=== PATIENT | female | born 1945 ===

== ENCOUNTER 2017-05-15 21:53 | Inpatient (IN) | payer MEDICARE, OTHER ==
[2017-05-15 22:00] VITALS: BMI 40.0
--- NOTE | 2017-05-15 22:19 | ED PDOC ---
Arrival/HPI - General Chief Complaint: Abdominal Pain Time Seen by Provider: 05/15/17 22:05 Historian: Patient - History of Present Illness Narrative History of Present Illness (Text): 05/15/17 22:19 Bettina Hill is a 72 year old female, whose past medical history includes diabetes, hyperlipidemia, CABG, pacemaker, gastric bypass, and pancreatitis, who presents to the Emergency department accompanied by family complaining of upper abdominal pain today. Patient reports associated nausea, 5 episodes of vomiting, and headache. Patient denies any fever, chills, chest pain, shortness of breath, urinary symptoms, back pain, neck pain, dizziness, or any other complaints. Time/Duration: Other (today) Symptom Onset: Gradual Symptom Course: Unchanged Activities at Onset: Rest, Light Context: Home Past Medical History - Provider Review Nursing Documentation Reviewed: Yes - Infectious Disease Hx of Infectious Diseases: None - Tetanus Immunization Tetanus Immunization: Unknown - Reproductive Menopause: Yes - Cardiac Hx Hypertension: (pt denies) Hx Pacemaker: Yes Other/Comment: CABG 9 yrs ago [facility] [place] - Pulmonary Hx Respiratory Disorders: No - Neurological Hx Neurological Disorder: No - HEENT Hx HEENT Disorder: No - Renal Hx Renal Disorder: No - Endocrine/Metabolic Hx Diabetes Mellitus Type 2: Yes Hx Hypothyroidism: Yes - Hematological/Oncological Hx Sickle Cell Disease: Yes - Integumentary Hx Dermatological Disorder: No - Musculoskeletal/Rheumatological Hx Arthritis: Yes (knees and hands) - Gastrointestinal Hx Colitis: Yes Hx Gastroesophageal Reflux: Yes - Genitourinary/Gynecological Hx Genitourinary Disorders: No - Psychiatric Hx Emotional Abuse: No Hx Physical Abuse: No Hx Substance Use: No - Surgical History Hx Coronary Artery Bypass Graft: Yes Hx Gastric Bypass Surgery: Yes (07/2013) - Anesthesia Hx Anesthesia: Yes Hx Anesthesia Reactions: No Hx Malignant Hyperthermia: No - Suicidal Assessment Feels Threatened In Home Enviroment: No Family/Social History - Physician Review Nursing Documentation Reviewed: Yes Family/Social History: Unknown Family HX Smoking Status: Never Smoked Hx Alcohol Use: No Hx Substance Use: No Hx Substance Use Treatment: No Allergies/Home Meds Allergies/Adverse Reactions: Allergies tramadol Adverse Reaction (Verified 05/15/17 22:00) HEADACHE Home Medications: Home Meds Medication Instructions Recorded Confirmed Insulin Glargine,Hum.rec.anlog 22 unit [facility] 07/19/12 05/15/17 [Lantus] Aspirin [Aspir 81] 81 mg PO DAILY 03/09/13 05/15/17 Atorvastatin [Lipitor] 40 mg PO DAILY 07/29/15 05/15/17 Enalapril Maleate [Vasotec] 10 mg PO DAILY 05/15/17 05/15/17 Insulin Aspart, Recombinant 15 units SC TID 05/15/17 05/15/17 [Novolog] Levothyroxine Sodium 137 mcg PO DAILY 05/15/17 05/15/17 [Levothyroxine Sodium] Omeprazole [Omeprazole] 40 mg PO DAILY 05/15/17 05/15/17 Review of Systems - Physician Review All systems were reviewed & negative as marked: Yes - Review of Systems Constitutional: Normal. absent: Fevers Eyes: Normal ENT: Normal Respiratory: Normal. absent: SOB, Cough Cardiovascular: Normal. absent: Chest Pain Gastrointestinal: Abdominal Pain, Nausea, Vomiting. absent: Diarrhea Genitourinary Female: Normal. absent: Dysuria, Frequency, Hematuria, Urine Output Changes Musculoskeletal: Normal. absent: Back Pain, Neck Pain Skin: Normal. absent: Rash Neurological: Headache. absent: Dizziness Endocrine: Normal Hemo/Lymphatic: Normal Psychiatric: Normal Physical Exam Vital Signs Reviewed: Yes Vital Signs Temp Pulse Resp BP Pulse Ox 05/16/17 00:36 60 16 161/81 H 96 05/15/17 21:57 98.3 F 66 18 160/81 H 97 Temperature: Afebrile Blood Pressure: Normal Pulse: Regular Respiratory Rate: Normal Appearance: Positive for: Well-Appearing, Non-Toxic, Comfortable Pain Distress: None Mental Status: Positive for: Alert and Oriented X 3 - Systems Exam Head: Present: Atraumatic, Normocephalic Pupils: Present: PERRL Extroacular Muscles: Present: EOMI Conjunctiva: Present: Normal Mouth: Present: Moist Mucous Membranes Neck: Present: Normal Range of Motion Respiratory/Chest: Present: Clear to Auscultation, Good Air Exchange. No: Respiratory Distress, Accessory Muscle Use Cardiovascular: Present: Regular Rate and Rhythm, Normal S1, S2. No: Murmurs Abdomen: Present: Tenderness (Epigastric/LUQ tenderness), Normal Bowel Sounds. No: Distention, Peritoneal Signs Back: Present: Normal Inspection Upper Extremity: Present: Normal Inspection. No: Cyanosis, Edema Lower Extremity: Present: Normal Inspection. No: Edema Neurological: Present: GCS=15, CN II-XII Intact, Speech Normal Skin: Present: Warm, Dry, Normal Color. No: Rashes Psychiatric: Present: Alert, Oriented x 3, Normal Insight, Normal Concentration Medical Decision Making ED Course and Treatment: 05/15/17 22:19 Impression: 72 year old female complaining of upper abdominal pain, nausea, vomiting, and headache. Plan: -- EKG -- Chest X-ray -- Labs, lipase -- IV fluids -- Zofran -- Pepcid -- Reassess and disposition Prior Visits: Notes and results from previous visits were reviewed. On 07/22/2016, pt was seen in the Emergency department for palpitations and dizziness. Pt was d/c home. Progress Notes: Reviewed EKG, 100% paced rhythm at 63 bpm. LAD. Inferior infarct. 05/15/17 22:59 Reviewed radiology, Chest X-ray shows no acute processes. 05/16/17 02:[address] Abdomen and Pelvis, shows: Stable trace intrahepatic biliary duct dilation. Stable right renal cortical thinning and perinephric fluid/stranding. Air in urinary bladder.Recommend correlation with urinalysis to exclude infectious etiology. 05/16/17 03:[address] Mccartney, who is aware and agrees with plan. Accepts pt in to her service. Pt will go to [facility] observation for intractable abdominal pain. Request Dr. Hein on consult. - Lab Interpretations Lab Results: 05/15/17 22:20 05/15/17 22:20 Lab Results 05/15/17 22:20: WBC 5.5 D, RBC 3.97, Hgb 11.5 L, Hct 35.3 L, MCV 88.9, MCH 29.0 , MCHC 32.6, RDW 13.6, Plt Count 241, MPV 9.6 05/15/17 22:20: Sodium 137, Potassium 4.4, Chloride 100, Carbon Dioxide 27, Anion Gap 14, BUN 14, Creatinine 0.6, Est GFR ( Amer) > 60, Est GFR (Non- Af Amer) > 60, Random Glucose 166 H, Calcium 9.5, Total Bilirubin 0.4, AST 29, ALT 30, Alkaline Phosphatase 79, Total Protein 7.5, Albumin 4.1, Globulin 3.4, Albumin/Globulin Ratio 1.2, Lipase 85 I have reviewed the lab results: Yes - RAD Interpretation Narrative RAD Interpretations (Text): CT Abdomen and Pelvis shows: The gallbladder is distended without evidence of gallstones or wall thickening. There is trace intrahepatic biliary duct dilation similar to prior of uncertain etiology. The common bile duct measures 8 mm which is unchanged and within normal limits for the patient's age. The liver is normal. The spleen is normal. The pancreas is normal. Again seen are areas of cortical thinning in the right kidney with a small amount of adjacent stranding fluid. Without benefit of the prior, this would raise the possibility of pyelonephritis however the complete lack of bladder changer 1 year suggests chronicity. Correlation with urinalysis could be performed for confirmation. Evidence of gastric surgery. Colonic diverticulosis is present. A normal appendix is identified images 97 through 116. There is air in the urinary bladder. IMPRESSION: Stable trace intrahepatic biliary duct dilation. Stable right renal cortical thinning and perinephric fluid/stranding. Air in urinary bladder.Recommend correlation with urinalysis to exclude infectious etiology. Radiology Orders: 05/15/17 22:18 CHEST PORTABLE [RAD] Stat 05/15/17 23:43 ABD & PELVIS IV CONTRAST ONLY [CT] Stat Animal Services Officer: ED Physician, Radiologist - EKG Interpretation Interpreted by ED Physician: Yes Type: 12 lead EKG - Medication Orders Current Medication Orders: Sodium Chloride (Sodium Chloride 0.9%) 1,000 mls @ 100 mls/hr IV .Q10H KULWANT Last Admin: 05/15/17 22:37 Dose: 100 mls/hr Discontinued Medications Famotidine (Pepcid) 20 mg IVP STAT STA Stop: 05/15/17 22:20 Last Admin: 05/15/17 22:46 Dose: 20 mg Iohexol (Omnipaque 350 100 Ml) Confirm Administered Dose 350 mg .ROUTE .STK-MED ONE Stop: 05/16/17 01:05 Ketorolac Tromethamine (Toradol) 30 mg IVP ONCE ONE Stop: 05/15/17 22:20 Last Admin: 05/15/17 22:38 Dose: 30 mg Morphine Sulfate (Morphine) 2 mg IVP STAT STA Stop: 05/15/17 23:25 Last Admin: 05/15/17 23:30 Dose: 2 mg Morphine Sulfate (Morphine) 2 mg IVP STAT STA Stop: 05/16/17 01:00 Last Admin: 05/16/17 02:35 Dose: 2 mg Ondansetron HCl (Zofran Inj) 4 mg IVP ONCE ONE Stop: 05/15/17 22:20 Last Admin: 05/15/17 22:37 Dose: 4 mg - Scribe Statement The provider has reviewed the documentation as recorded by the Zuleyka Serna Provider Scribe Attestation: All medical record entries made by the Scribe were at my direction and personally dictated by me. I have reviewed the chart and agree that the record accurately reflects my personal performance of the history, physical exam, medical decision making, and the department course for this patient. I have also personally directed, reviewed, and agree with the discharge instructions and disposition. Disposition/Present on Arrival - Present on Arrival Any Indicators Present on Arrival: No History of DVT/PE: No History of Uncontrolled Diabetes: No Urinary Catheter: No History of Decub. Ulcer: No History Surgical Site Infection Following: None - Disposition Have Diagnosis and Disposition been Completed?: Yes Diagnosis: Intractable abdominal pain Disposition: HOSPITALIZED Disposition Time: 03:22 Patient Plan: Observation Condition: STABLE Referrals: Annie Hankins DO [Primary Care Provider] - Follow up with primary
[2017-05-15 22:36] LABS: HEMOGLOBIN 11.5 gm/dL (12.0-16.0); MEAN CELL VOLUME 88.9 fL (80.0-105.0); MEAN CORPUSCULAR HGB CONC 32.6 g/dl (31.0-37.0); MEAN PLATELET VOLUME 9.6 fl (7.0-11.0); RBC 3.97 10^6/uL (3.5-6.1); RED CELL DISTRIBUTION WIDTH 13.6 % (11.5-14.5); WHITE BLOOD COUNT 5.5 10^3/ul (4.5-11.0)
[2017-05-15] MEDS: Sodium Chloride 0.9% 1,000 ML IV SCH (22:37)
[2017-05-15 23:23] LABS: ALB/GLOB RATIO 1.2 (1.1-1.8); ALBUMIN 4.1 g/dL (3.0-4.8); ALT/SGPT 30 U/L (7-56); AST/SGOT 29 U/L (15-39); BLOOD UREA NITROGEN 14 mg/dL (7-21); CALCIUM 9.5 mg/dL (8.4-10.5); GFR AFRICAN-AMERICAN > 60; GFR NON-AFRICAN AMERICAN > 60; LIPASE 85 U/L (23-300)
[2017-05-15] MEDS ORDERED: Morphine 2 mg/ml ISec IVP STA (23:24)
[2017-05-16] MEDS ORDERED: Morphine 2 mg/ml ISec IVP STA (00:59)
[2017-05-16] MEDS ORDERED: Iohexol 350 MG/100 ML VIAL ONE (01:04)
--- NOTE | 2017-05-16 02:52 | CT ---
EXAM: CT Abdomen and Pelvis With Intravenous Contrast CLINICAL HISTORY: 72 years old, female; Pain; Abdominal pain; Generalized TECHNIQUE: Axial computed tomography images of the abdomen and pelvis with intravenous contrast. This CT exam was performed using one or more of the following dose reduction techniques: automated exposure control, adjustment of the mA and/or kV according to patient size, and/or use of iterative reconstruction technique. CONTRAST: 96 mL of OMNI 350 administered intravenously. EXAM DATE/TIME: 05/15/2017 11:43 PM COMPARISON: CT - PANCREATIC PROTOCOL 06/01/2016 9:04:29 AM FINDINGS: The gallbladder is distended without evidence of gallstones or wall thickening. There is trace intrahepatic biliary duct dilation similar to prior of uncertain etiology. The common bile duct measures 8 mm which is unchanged and within normal limits for the patient's age. The liver is normal. The spleen is normal. The pancreas is normal. Again seen are areas of cortical thinning in the right kidney with a small amount of adjacent stranding fluid. Without benefit of the prior, this would raise the possibility of pyelonephritis however the complete lack of change lead 1 year suggests chronicity. Correlation with urinalysis could be performed for confirmation. Evidence of gastric surgery. Colonic diverticulosis is present. A normal appendix is identified images 97 through 116. There is air in the urinary bladder. IMPRESSION: Stable trace intrahepatic biliary duct dilation. Stable right renal cortical thinning and perinephric fluid/stranding. Air in urinary bladder.Recommend correlation with urinalysis to exclude infectious etiology.
[2017-05-16 03:33] LABS: URINE BILIRUBIN NEGATIVE (NEGATIVE); URINE BLOOD TRACE-INTACT (NEGATIVE); URINE GLUCOSE (UA) NEGATIVE (NEGATIVE); URINE LEUKOCYTE ESTERASE NEGATIVE Leu/uL (NEGATIVE); URINE NITRATE NEGATIVE (NEGATIVE); URINE PROTEIN TRACE mg/dL (<30 mg/dL); URINE UROBILINOGEN 0.2 E.U./dL (<1 E.U./dL)
[2017-05-16 03:41] LABS: URINE APPEARANCE SL CLOUDY (CLEAR); URINE COLOR YELLOW (YELLOW)
[2017-05-16 04:38] LABS: URINE BACTERIA MANY (NEG); URINE EPITHELIAL CELLS 0 - 2 /hpf (0-5); URINE RBC 0 - 2 /hpf (0-2); URINE WBC 0 - 2 /hpf (0-6)
--- NOTE | 2017-05-16 08:02 | RAD ---
HISTORY: abdominal pain COMPARISON: 07/22/2016. FINDINGS: LUNGS: The lungs are clear. PLEURA: No significant pleural effusion identified, no pneumothorax apparent. CARDIOVASCULAR: There is mild cardiomegaly. Status post CABG. There is stable position of a left-sided dual lead transvenous permanent pacing device. OSSEOUS STRUCTURES: No significant abnormalities. VISUALIZED UPPER ABDOMEN: Normal. OTHER FINDINGS: None. IMPRESSION: No active pulmonary disease.
[2017-05-16] MEDS: Insulin Reg-MEDIUM-Coverage SC SCH ×3 (11:00→22:18)
--- NOTE | 2017-05-16 11:17 | US ---
HISTORY: Nausea and vomiting COMPARISON: CT abdomen and pelvis performed the same day TECHNIQUE: Grayscale imaging was performed. FINDINGS: LIVER: Measures 18.3 cm. Normal echogenicity of the liver parenchyma. No mass. No intrahepatic bile duct dilatation. GALLBLADDER: There are no gallstones, wall thickening or pericholecystic fluid. COMMON BILE DUCT: Measures 8.0 mm. No stones. No dilatation. PANCREAS: Unremarkable as visualized. No mass. No ductal dilatation. RIGHT KIDNEY: Measures 10.5cm. Normal echogenicity. No calculus, mass, or hydronephrosis. LEFT KIDNEY: Measures 10.8cm. Normal echogenicity. No calculus, mass, or hydronephrosis. SPLEEN: Normal in size and contour. No mass. AORTA: No aneurysmal dilatation. IVC: Unremarkable. OTHER FINDINGS: None. IMPRESSION: Mild hepatomegaly. Diffuse increased echogenicity in the liver may reflect hepatic steatosis however parenchymal infectious/ inflammatory etiologies cannot be entirely excluded. Clinical and laboratory correlation is advised. No evidence of cholelithiasis or biliary dilatation.
[2017-05-16] MEDS ORDERED: HYDROmorphone 2 mg/ml ISec IVP PRN (12:38)
[2017-05-16] MEDS: Sodium Chloride 0.9% 1,000 ML IV SCH (13:12)
[2017-05-16] MEDS ORDERED: DiphenhydrAMINE 50 mg/ml Inj IVP PRN (14:43)
[2017-05-16] MEDS ORDERED: Morphine 4 mg/ml ISec IVP PRN (14:45)
--- NOTE | 2017-05-16 17:17 | CARD ---
APPROVED REPORT EKG Measurement Heart [id number] <Conclusion> Electronic atrial pacemaker Left axis deviation Nonspecific intraventricular block Inferior infarct, age undetermined Abnormal ECG
--- NOTE | 2017-05-17 03:33 | CON ---
GASTROINTESTINAL CONSULTATION REASON FOR CONSULTATION: Seen and examined at the bedside earlier today, the chart was reviewed, and request for consult is for abdominal pain. HISTORY OF PRESENT ILLNESS: This is a 72-year-old female with a past medical history of hyperlipidemia, CABG pacemaker, gastric bypass, and diabetes now status post pancreatitis, came to the emergency room complaining of upper abdominal pain. She did complain of numerous episodes of vomiting. No hematemesis as well as nausea and headache. No complaints of any shortness of breath, chest pain, fever, chills, or dysuria. On admission, she had a CT scan of the abdomen and pelvis, which showed a stable *------* of intrahepatic biliary duct dilatation at 8 mm, which is unchanged. No gallstones noted as well as CT scan with air in urinary bladder and stable right renal cortical thinning and perinephric fluid stranding. The patient did state she had an endoscopy about 2 weeks ago at [facility]. PAST MEDICAL HISTORY: Pacemaker, diabetes mellitus type 2, hypothyroidism, CABG, arthritis, GERD, colitis, pancreatitis, and history of hyperlipidemia. PAST SURGICAL HISTORY: Pacemaker, coronary artery bypass graft, gastric bypass, last endoscopy was in 12/2014 and found to have healed gastric ulcer. She did have an EUS back in 04/2013 and that showed normal CBD at 12.9 mm and normal PD at 1.8 mm. ALLERGIES: TRAMADOL. MEDICATIONS: Reviewed as per MAR. She is on levothyroxine, omeprazole, Vasotec, insulin, Lipitor, aspirin, and Lantus. SOCIAL HISTORY: No history of smoking, alcohol, or substance abuse. REVIEW OF SYSTEMS: Systems reviewed with positive findings, see HPI. PHYSICAL EXAMINATION: VITAL SIGNS: Temperature is 98.5, blood pressure is 124/66, pulse is 60, respirations are 18, and 96% on room air. HEENT: Sclerae anicteric. NECK: Supple. CARDIAC: S1 and S2. LUNGS: Sounds with decreased breath sound, but good air entry. No rales or wheeze. ABDOMEN: With bowel sounds soft, positive tenderness, no rebound or guarding. EXTREMITIES: No edema. NEUROLOGIC: Awake, alert, and oriented. LABORATORY DATA: WBC is 5.5, H and H is 11.5 and 35.3, and platelets are 241. Sodium 137, potassium 4.4, BUN 14, creatinine 0.6, total bilirubin 0.4, AST 29, ALT 30, alkaline phosphate is 79, and lipase is 85. Urine is negative for leukocyte esterase, protein trace, and blood trace intact. ASSESSMENT: This is a 72-year-old female with a past medical history of diabetes mellitus, gastric bypass, coronary artery bypass graft:, pacemaker, history of pancreatitis, and gastroesophageal reflux disease comes with upper abdominal pain as well as nausea and vomiting. We did send the patient for an ultrasound this morning and that was negative for any dilation or common bile duct stones, the common bile duct measured 8.0 mm. Gallbladder was negative for gallstones, wall thickening, or pericholecystic fluid, and history of gastric bypass. PLAN: We will request copy of her EGD from [facility] for review. Continue PPIs, on Protonix daily, on IV fluids, Zofran p.r.n., is on Dilaudid for pain and on aspirin. We will try to start patient on clear liquid diet and see how she does with this. Thank you for this consult and for allowing us to participate in your patient's care. We will make further recommendations based upon patient's clinical course. The patient was seen and case discussed with Dr. Hein. TEGAN Pugh
--- NOTE | 2017-05-17 03:42 | HP ---
DATE OF SERVICE: 05/16/2017 HISTORY OF PRESENT ILLNESS: The patient is 72-year-old, states she is having abdominal discomfort and nausea since yesterday. She did have multiple episodes of diarrhea. She feels nauseous. She complained of loss of appetite. She does admit to eating some barbeque yesterday afternoon. Since then, she started her symptoms. Denies any fever or chills. No hemoptysis. No hematemesis. No rectal bleeding. PAST MEDICAL HISTORY: Significant for: 1. Hypertension. 2. Coronary artery disease, status post open heart surgery. 3. History of gastric bypass. 4. Status post pacemaker placement. 5. Hyperlipidemia. 6. Insulin-dependent diabetes. 7. History of gastroesophageal reflux disease. ALLERGIES: SHE IS ALLERGIC TO TRAMADOL. FAMILY HISTORY: Not significant except diabetes and hypertension. SOCIAL HISTORY: She lives by herself. She used to smoke heavy, but quit a couple of years ago. MEDICATIONS AT HOME: She is on levothyroxine 137 mcg daily, omeprazole 40 mg daily, enalapril 10 mg daily, NovoLog 15 units before each meal, Lipitor 40 mg daily, aspirin 81 mg daily, and Lantus 22 units at bedtime. REVIEW OF SYSTEMS: Significant for decreased appetite, feeling nauseous and having abdominal discomfort. PHYSICAL EXAMINATION: GENERAL: Does not look in any distress. Does complain of left upper quadrant and lower quadrant discomfort. VITAL SIGNS: She is afebrile, pulse 60, respirations 18, blood pressure 124/66. LUNGS: Bilateral fair airflow. No rhonchi or crackle. HEART: S1 and S2 audible. ABDOMEN: Soft and nontender. Slight deep palpable discomfort in the left upper quadrant and lower quadrant area, but no rebound or guarding. EXTREMITIES: Bilateral leg, no edema. NEUROLOGIC: She is awake and alert, communicative. LABORATORY DATA: She has stable trace intrahepatic biliary ductal dilatation, stable right renal cortical thinning, air in the urinary bladder. Abdominal sonogram shows mild hepatomegaly, diffuse increased echogenicity in the liver reflecting fatty infiltration. No evidence of cholelithiasis or ductal dilatation. ASSESSMENT: 1. Gastroenteritis. 2. Dehydration. 3. Hypertension. 4. Coronary artery disease. 5. Hypothyroidism. 6. Insulin-dependent diabetes. PLAN: We will start the patient on aspirin 81 mg daily, Dilaudid as needed. Monitor her blood sugars. Give her Protonix IV daily. Start her on IV fluid. We will hold off her scheduled dose of insulin and we will reevaluate the patient in a.m. Follow up CBC, CMP in a.m. Frances Mccartney MD
--- NOTE | 2017-05-17 05:33 | CON ---
ADDENDUM DATE: 05/16/2017 Addendum to the consultation report dictated by EMILY Pugh. This patient was seen evaluated earlier. His previous workup reviewed. The patient is being followed by the auto parts handler. The patient had a CAT scan with a pancreatic protocol done last year was negative. Admitted with an abdominal pain. The patient had an endoscopy done only 2 weeks ago at [facility]. We reviewed the report from the medical center. We will request for ultrasound scan of the abdomen. We will continue to closely follow up her care and suggest further management based on the clinical course. We will start the patient on clear liquid diet. Thank you very much for allowing me to participate. Patrick Hein MD
[2017-05-17] MEDS ORDERED: Levothyroxine 112 MCG TAB ONE ×2 (05:41→05:42)
[2017-05-17] MEDS ORDERED: Levothyroxine 125 MCG TAB PO SCH (06:00)
[2017-05-17] MEDS: Insulin Reg-MEDIUM-Coverage SC SCH ×2 (08:52→17:12)
[2017-05-17] MEDS: Sodium Chloride 0.9% 1,000 ML IV SCH ×2 (09:10→17:13)
--- NOTE | 2017-05-18 03:05 | PN ---
DATE: SUBJECTIVE: Seen and examined at the bedside earlier today. The daughter was there. The patient does report improvement of abdominal pain. No nausea or vomiting. Her daughter brought in the copies of her endoscopy report done at [facility] on 04/19/2017. The report was reviewed. The patient's findings were reviewed. Post surgical anatomy consistent with gastric bypass. Normal GJ anastomosis. There was mild nodular mucosa in the gastric remnant. Biopsies were obtained and that reported minimal chronic gastritis. No intestinal metaplasia and was negative for H. pylori. No report of any diarrhea. She tolerated the clear liquid diet. PHYSICAL EXAMINATION: VITAL SIGNS: Temperature is 97.7, blood pressure 146/66, pulse 62, respirations 18, 96 on room air. HEENT: Sclerae is anicteric. NECK: Supple. CARDIOPULMONARY: S1 and S2. LUNGS: Lung sounds, decreased breath sounds at the bases, but good air entry. No rales or wheeze. ABDOMEN: Bowel sounds, soft. No tenderness on palpation, rebound or guarding. EXTREMITIES: Positive pedal pulses. No edema. NEUROLOGIC: Awake, alert, and oriented. LABORATORY DATA: Noted is for POC glucose at 280. The patient is on insulin coverage. ASSESSMENT: A 72-year-old female with a past medical history of gastric bypass, diabetes, history of pancreatitis, hyperlipidemia came with complaints of abdominal pain and nausea. She also has a history of gastroesophageal reflux disease, may be gastroenteritis. The patient recalls last eating a barbeque. Endoscopy report was reviewed, it was done on 03/2017, no ulcers were found, just chronic gastritis. Biopsies negative. She did go for an ultrasound which was negative for gallstones or common bile duct stones, showed intrahepatic biliary duct dilatation at 8 mm which is reported to be unchanged from previous study done. PLAN: She was on clear liquids, advance the diet as tolerated. Continue PPI. She is on Zofran p.r.n. Her last dose was yesterday afternoon. Continue IV fluids for hydration. We will continue to follow. The patient was seen and case discussed with Dr. Hein. TEGAN Pugh
[2017-05-18] MEDS ORDERED: Levothyroxine 112 MCG TAB ONE (05:17)
[2017-05-18] MEDS: Insulin Reg-MEDIUM-Coverage SC SCH ×5 (05:41→22:06)
--- NOTE | 2017-05-18 06:51 | DS ---
HISTORY OF PRESENT ILLNESS: The patient is a 72-year-old seen and examined. She states she felt well this morning, but her diet was advanced. After she ate, she started to have abdominal discomfort again, feels bloated now. PHYSICAL EXAMINATION: VITAL SIGNS: She is afebrile, pulse 62, respirations 18, and blood pressure 146/66. LUNGS: Bilateral fair airflow. No rhonchi or crackle. HEART: S1 and S2 audible. ABDOMEN: Soft and nontender. No rebound. No guarding. Slight discomfort in the left lower quadrant and epigastric area, but no definite tenderness. LABORATORY DATA: Blood sugar is 198. Urine cultures are negative. ASSESSMENT: 1. Gastroenteritis. 2. Abdominal bloating. 3. Non-insulin dependent diabetes. 4. Hypertension. PLAN: We will start the patient on full liquid diet and monitor for next 2-3 hours. If her abdominal discomfort and pain subsides, she will be discharge home later on today, and she was advised to stay on the soft diet for next 24-48 hours. Frances Mccartney MD
[2017-05-18 11:30] VITALS: RESP 20
[2017-05-18] MEDS ORDERED: Iohexol 240 (50 ml) ONE (19:02)
--- NOTE | 2017-05-18 20:12 | PN ---
DATE OF SERVICE: 05/18/2017 SUBJECTIVE: Seen and examined at the bedside earlier today. She had middle of the night abdominal pain. Only thing she recalls eating was her snack before bed. History of diabetes, she had a tuna fish and some juice. This morning, she feels okay. She was able to tolerate her breakfast with no nausea or complaints of abdominal pain. No reports of any diarrhea, shortness of breath, chest pain, or overt GI bleed. PHYSICAL EXAMINATION: VITAL SIGNS: Temperature 98.2, blood pressure 128/62, pulse 63, respirations 18, and 97% on room air. HEENT: Sclerae are anicteric. NECK: Supple. CARDIAC: S1 and S2. LUNGS: With decreased breath sounds at the bases, but good air entry. No rales or wheeze. ABDOMEN: With bowel sounds soft. There is no tenderness on palpation. No rebound or guarding. EXTREMITIES: No edema. NEUROLOGIC: Awake, alert, and oriented. LABORATORY DATA: Last blood workup noted at [facility], glucose was 202. ASSESSMENT: A 72-year-old female with a past medical history of diabetes mellitus, gastric bypass, history of pancreatitis, hyperlipidemia, and gastroesophageal reflux disease. The patient came with complaint of nausea, abdominal pain, recalls eating barbecue, may likely be an episode of gastroenteritis. She did have recent endoscopy done at [facility] in 03/2017, no acute findings, just showed chronic gastritis with negative biopsies; history of intrahepatic biliary ductal dilation. PLAN: Continue with the solids as tolerated. Continue PPI. If the patient continues to tolerate diet, no belly, abdominal pain, or nausea, may likely be discharged home today. I discussed with the patient. She has her own GI doctor who she goes to and said that she will follow up with him. The patient was seen and case discussed with Dr. Hein. TEGAN Pugh
--- NOTE | 2017-05-18 22:38 | CP.PCM.PN ---
Subjective - Date & Time of Evaluation Date of Evaluation: 05/18/17 Time of Evaluation: 17:00 Objective - Vital Signs/Intake and Output Vital Signs (last 24 hours): Temp Pulse Resp BP Pulse Ox 97.8 F 63 20 160/80 H 97 05/18/17 16:30 05/18/17 16:30 05/18/17 16:30 05/18/17 16:30 05/18/17 16:30 - Medications Medications: Current Medications Aspirin (Aspirin Chewable) 81 mg PO DAILY [facility] Last Admin: 05/18/17 10:32 Dose: 81 mg Diphenhydramine HCl (Benadryl) 25 mg IVP Q4H PRN PRN Reason: Allergy symptoms Last Admin: 05/16/17 14:56 Dose: 25 mg Insulin Human Regular (Humulin R Med) 0 units SC ACHS [facility] PRN Reason: Protocol Last Admin: 05/18/17 17:03 Dose: 3 units Levothyroxine Sodium 112 mcg/ (Levothyroxine Sodium 25 mcg) 137 mcg PO 0600 [facility] Last Admin: 05/18/17 05:38 Dose: 137 mcg Morphine Sulfate (Morphine) 4 mg IVP Q4H PRN PRN Reason: Pain, severe (8-10) Last Admin: 05/18/17 02:02 Dose: 4 mg Ondansetron HCl (Zofran Inj) 4 mg IVP Q6H PRN PRN Reason: Nausea/Vomiting Last Admin: 05/16/17 13:07 Dose: 4 mg Pantoprazole Sodium (Protonix Inj) 40 mg IVP DAILY [facility] Last Admin: 05/18/17 10:32 Dose: 40 mg Assessment and Plan - Assessment and Plan (Free Text) Assessment: This is an addendum to the GI progresreport dictated by Karina Araiza APN. Patient was seen and evaluated earlier patient had episodes of abdominal pain nausea yesterday after supper. Patient is now tolerating the diet appears to have abdominal pain more frequently after eating. Patient's the initial CT scan done was reviewed. The scan was done without the oral contrast and within IV contrast. This is a significant amount of food residue noticed in the stomach. The likely cause for her abdominal pain could be related to gastroparesis. Status post bariatric surgery. We'll recommend repeat the CT of abdomen and pelvis with only by mouth contrast to rule out any partial obstruction. Rule out gastric outlet obstruction Patient's other comorbidities include diabetes mellitus, status postgastric bypass, hypothyroidism, coronary artery disease, peptic ulcer disease Discussed with the Dr. Mccartney and also with the patient family members and nursing staff
[2017-05-19] MEDS ORDERED: Levothyroxine 112 MCG TAB ONE (06:15)
--- NOTE | 2017-05-19 07:53 | PN ---
SUBJECTIVE: The patient is 72 years old who was scheduled to be discharged yesterday, but after she had her lunch and dinner she started to have epigastric discomfort. Her scheduled discharge was canceled. She had severe epigastric discomfort around 2:00 this morning. She was given narcotics. When I saw patient, she was still complaining of abdominal discomfort. She was still complaining of abdominal discomfort, so we are going to discuss with Dr. Hein. Her CAT scan showed she has because of her gastroparesis. She recently had gastric bypass procedure. Because of when she eats she did start to have abdominal discomfort. She recently had endoscopy done in outside facility in [place] 2 weeks ago, so we will start her on pureed feeding, repeat the CT scan and reevaluate her response to this change. PHYSICAL EXAMINATION GENERAL: On examination today, she is weak and alert. She is communicative. VITAL SIGNS: She is afebrile, pulse 60, respirations 20, blood pressure 160/80. HEART: S1 and S2 audible. LUNGS: Bilateral fair airflow. No rhonchi or crackle. ABDOMEN: Soft. Epigastric discomfort. NEUROLOGIC: She is awake and alert, communicative. LABORATORY DATA: WBC is 5.5, hemoglobin 11 and hematocrit 35, blood sugar is 211. ASSESSMENT AND PLAN: 1. Abdominal pain probably secondary to gastroparesis. 2. Moderate obesity. 3. Status post gastric bypass. 4. Hypertension. 5. Non-insulin dependent diabetes. 6. Moderate obesity. PLAN: We will change her diet to the pureed diet and repeat CT of the abdomen and pelvis with p.o. contrast and we will reevaluate the patient in a.m. Frances Mccartney MD
--- NOTE | 2017-05-19 08:14 | CT ---
PROCEDURE: CT Abdomen and Pelvis with Oral contrast. HISTORY: EPIGASTRIC PAIN COMPARISON: Subsequent abdomen pelvis CT with IV contrast only 05/16/2017 01:10 a.m. as well as abdomen CT with contrast dated 06/01/2016. TECHNIQUE: Contiguous axial images of the abdomen and pelvis. Oral contrast was administered. No IV contrast given. Coronal and Sagittal reformats generated. Radiation dose: Total exam DLP = 1243 mGy-cm. This CT exam was performed using one or more of the following dose reduction techniques: Automated exposure control, adjustment of the mA and/or kV according to patient size, and/or use of iterative reconstruction technique. FINDINGS: LOWER THORAX: Unremarkable. 9 mm densely calcified granuloma seen the medial left lower lobe with fibrotic changes again seen the medial right lung base LIVER: Unenhanced liver appears unremarkable. No gross lesion or ductal dilatation. GALLBLADDER AND BILE DUCTS: A dilated CBD is identified 9 mm distally with the gallbladder appearing distended. No radiodense choledocholithiasis or cholelithiasis is identified this time. PANCREAS: Unenhanced pancreas appears unremarkable. No mass. No ductal dilatation. SPLEEN: Unenhanced spleen appears unremarkable. No splenomegaly. ADRENALS: Unenhanced appearing unremarkable. KIDNEYS AND URETERS: Unenhanced appearing nonfocal. Right perinephric streaky changes persist, of uncertain origin. Consider not nephritis however prior enhancement pattern was unremarkable. No stone or hydronephrosis. BLADDER: Trace gas again seen the nondependent urinary bladder. . REPRODUCTIVE: Unremarkable. APPENDIX: Remains unremarkable. BOWEL: Liquid fecal material is again seen in the colon with sigmoid diverticular changes stable and nonacute once again. Opacified small bowel loops appear grossly unremarkable. No obstruction. No gross mural thickening. PERITONEUM: Unremarkable. No fluid collection. No free air. LYMPH NODES: Unremarkable. No enlarged lymph nodes. VASCULATURE: Unremarkable. No aortic aneurysm. BONES: No fracture or destructive lesion. OTHER FINDINGS: None. IMPRESSION: No significant interval change in the appearance of the bowel with nonacute sigmoid diverticular change again identified. Opacified small bowel is unremarkable. Postop changes again seen the stomach. Note solid abdominal viscera are poorly evaluated due to lack of IV contrast. Trace right perinephric reaction again evident. Consider possible nephritis though obstructive uropathy is not evident. No prominent interval change seen compared to prior CT earlier on 05/16/2017. Distal common bile duct caliber remains dilated to 8 mm without radiodense choledocholithiasis, potentially normal caliber.
[2017-05-19] MEDS: Insulin Reg-MEDIUM-Coverage SC SCH ×3 (09:43→12:30)
--- NOTE | 2017-05-19 10:08 | CP.PCM.PN ---
<Karina Araiza - Last Filed: 05/19/17 11:02> Subjective - Date & Time of Evaluation Date of Evaluation: 05/19/17 Time of Evaluation: 08:50 - Subjective Subjective: S&E at bedside, chart reviewed. Had no pain last night but did have this morning. Epigastric. But better. She tolerated her breakfast, N/V. Had large BM after oral contrast for ct sca, which revealed liquid stool, sigmoid diverticular changes, , stable, non acute, dilated CBD, stable. Objective - Vital Signs/Intake and Output Vital Signs (last 24 hours): Temp Pulse Resp BP Pulse Ox 97.8 F 63 20 160/80 H 97 05/18/17 16:30 05/18/17 16:30 05/18/17 16:30 05/18/17 16:30 05/18/17 16:30 Intake and Output: 05/19/17 05/19/17 06:59 18:59 Intake Total 240 Balance 240 - Medications Medications: Current Medications Aspirin (Aspirin Chewable) 81 mg PO DAILY [facility] Last Admin: 05/19/17 09:44 Dose: 81 mg Diphenhydramine HCl (Benadryl) 25 mg IVP Q4H PRN PRN Reason: Allergy symptoms Last Admin: 05/16/17 14:56 Dose: 25 mg Insulin Human Regular (Humulin R Med) 0 units SC ACHS [facility] PRN Reason: Protocol Last Admin: 05/19/17 09:44 Dose: 3 units Levothyroxine Sodium 112 mcg/ (Levothyroxine Sodium 25 mcg) 137 mcg PO 0600 [facility] Last Admin: 05/19/17 06:17 Dose: 137 mcg Morphine Sulfate (Morphine) 4 mg IVP Q4H PRN PRN Reason: Pain, severe (8-10) Last Admin: 05/18/17 02:02 Dose: 4 mg Ondansetron HCl (Zofran Inj) 4 mg IVP Q6H PRN PRN Reason: Nausea/Vomiting Last Admin: 05/16/17 13:07 Dose: 4 mg Pantoprazole Sodium (Protonix Inj) 40 mg IVP DAILY [facility] Last Admin: 05/19/17 09:47 Dose: 40 mg - Constitutional Appears: No Acute Distress - Eye Exam Eye Exam: Normal appearance. absent: Scleral icterus - ENT Exam ENT Exam: Mucous Membranes Moist - Neck Exam Neck Exam: Normal Inspection - Respiratory Exam Respiratory Exam: NORMAL BREATHING PATTERN. absent: Respiratory Distress - Cardiovascular Exam Cardiovascular Exam: +S1, +S2 - GI/Abdominal Exam GI & Abdominal Exam: Soft, Tenderness (epigastric), Normal Bowel Sounds. absent : Distended, Guarding, Rebound - Extremities Exam Extremities Exam: absent: Calf Tenderness, Pedal Edema - Neurological Exam Neurological Exam: Alert, Awake, Oriented x3 - Skin Skin Exam: Dry, Warm Assessment and Plan - Assessment and Plan (Free Text) Assessment: ASSESSMENT: A 72-year-old female with a past medical history of diabetes mellitus, gastric bypass, history of pancreatitis, hyperlipidemia, and gastroesophageal reflux disease. Nausea Abdominal Pain Gastroenteritis Gastroparesis Chronic Gastritis H/O intrahepatic Ductal Dilation, egd reports from [facility] [place] reviewed PLAN: change diet to puree diet on Aspirin pain mgt continue PPI discuss with patient to FU with Dr. Molina regarding h/o dilated ducts and FU w / bariatric sx regarding H/O gastric bypass. Patient acknowledge understanding. Seen and discussed with Dr. Hein. <Patrick Hein V - Last Filed: 05/19/17 22:11> Objective - Vital Signs/Intake and Output Vital Signs (last 24 hours): Temp Pulse Resp BP Pulse Ox 98.2 F 59 L 20 122/49 L 96 05/19/17 07:30 05/19/17 07:30 05/19/17 07:30 05/19/17 07:30 05/19/17 07:30 Intake and Output: 05/19/17 05/20/17 18:59 06:59 Intake Total 480 Balance 480 Attending/Attestation - Attestation I have personally seen and examined this patient.: Yes I have fully participated in the care of the patient.: Yes I have reviewed all pertinent clinical information, including history, physical exam and plan: Yes Notes (Text): this
[2017-05-19 10:18] VITALS: BP 122/49; PULSE 59; TEMP 98.2; O2SAT 96
--- NOTE | 2017-05-19 18:50 | DS ---
HISTORY OF PRESENT ILLNESS: The patient is a 72-year-old, seen and examined, sitting in chair. She states she feels much better with pureed diet. No more nausea or abdominal pain. PHYSICAL EXAMINATION: VITAL SIGNS: She is afebrile, pulse 59, respirations 20, blood pressure 122/49. LUNGS: Bilateral fair airflow. No rhonchi or crackle. HEART: S1 and S2 audible. ABDOMEN: Soft and nontender. No rebound. No guarding. NEUROLOGIC: She is awake and alert, communicative, ambulatory. LABORATORY EXAM: Blood sugar is 205. Blood culture, urine cultures are negative. ASSESSMENT AND PLAN: 1. Abdominal pain, Initially was gastroenteritis. 2. Status post gastric bypass and had bezoar in her stomach. She is advised to have pureed diet. She is doing much better with that. 3. Insulin-dependant diabetes. 4. Morbid obesity. 5. Hypertension. PLAN: The patient is being discharged home on her urine medications that include aspirin 81 daily; Protonix as needed; levothyroxine. She is advised to eat pureed diet, frequent and small meals, and she will be discharge today, and she will follow up with Dr. Hannah. Frances Mccartney MD
== END 2017-05-19 14:11 | disposition home or self-care (01) | DRG 74 ==
LOC: ED 21:53 → ERH 05-16 03:23 → 5RSO 05-16 04:49 → OBSVTOIN 05-18 18:48
PROVIDERS: ADMIT Internal Medicine; ATTEND Internal Medicine
DX: E11.43 Type 2 diabetes mellitus with diabetic autonomic (poly)neuropathy (principal); E66.01 Morbid (severe) obesity due to excess calories; I10 Essential (primary) hypertension; K52.9 Noninfective gastroenteritis and colitis, unspecified; K31.84 Gastroparesis; E86.0 Dehydration; I25.10 Atherosclerotic heart disease of native coronary artery without angina pectoris; E03.9 Hypothyroidism, unspecified; Z98.84 Bariatric surgery status; Z95.1 Presence of aortocoronary bypass graft; K21.9 Gastro-esophageal reflux disease without esophagitis; E78.5 Hyperlipidemia, unspecified; M19.90 Unspecified osteoarthritis, unspecified site

== ENCOUNTER 2017-08-16 08:56 | Day surgery (SDC) | payer MEDICARE ==
[2017-08-08 13:03] VITALS: BMI 39.8
[2017-08-16 09:23] VITALS: TEMP 97.7
[2017-08-16] MEDS ORDERED: Propofol 10 mg/ml Inj (20 ML) ONE (10:25)
[2017-08-16] MEDS ORDERED: Sodium Chloride 0.9% 1,000 ML IV SCH (11:00)
[2017-08-16 11:45] VITALS: PULSE 60
[2017-08-16 11:49] VITALS: O2SAT 98
[2017-08-16 12:05] VITALS: BP 134/64; RESP 16
== END 2017-08-16 13:51 | disposition home or self-care (01) ==
LOC: ENDO 08:56
PROVIDERS: ATTEND Internal Medicine Gastroenterology
DX: K57.30 Diverticulosis of large intestine without perforation or abscess without bleeding (principal); K64.8 Other hemorrhoids; K63.89 Other specified diseases of intestine; Z86.010 Personal history of colon polyps
CPT/HCPCS: 45378; J2001; J2704; J7040 ×2

== ENCOUNTER 2018-02-07 06:49 | Observation (INO) | payer MEDICAID, MEDICARE ==
[2018-02-07 06:50] VITALS: BMI 39.8
--- NOTE | 2018-02-07 07:52 | ED PDOC ---
Arrival/HPI - General Chief Complaint: Dizziness/Lightheaded Time Seen by Provider: 02/07/18 07:11 Historian: Patient - History of Present Illness Narrative History of Present Illness (Text): 02/07/18 07:44 A 72 year old female, whose past medical history includes diabetes, CAD s/p CABG one-vessel disease, s/p pacemaker placement, presents to the emergency department complaining of an episode of dizziness at 04:00 this morning. Patient reports she woke up to use the bathroom and felt dizzy which she characterizes as pre-syncopal. Patient reports having to use the wall to help her from passing out. She reports 3 similar episodes of dizziness over the past 3 weeks. Patient notes feeling well prior to going to bed and denies recent hyperglycemic finger sticks. Patient denies any recent fever, chills, fluid loss , changes in appetite, nausea, vomiting, diarrhea, abdominal pain, chest pain, palpitations, shortness of breath, cough, headache or any other complaints. Time/Duration: Other (this morning) Symptom Course: Unchanged (occuring 3 times over the past 3 weeks) Context: Home Past Medical History - Provider Review Nursing Documentation Reviewed: Yes - Infectious Disease Hx of Infectious Diseases: None - Tetanus Immunization Tetanus Immunization: Unknown - Cardiac Hx Pacemaker: Yes (PT TO BRING CARD IN ) - Pulmonary Hx Respiratory Disorders: No - Neurological Hx Paralysis: No - HEENT Hx HEENT Disorder: No - Renal Hx Renal Disorder: No - Endocrine/Metabolic Hx Diabetes Mellitus Type 2: Yes Hx Hypothyroidism: Yes - Hematological/Oncological Hx Blood Transfusions: No Hx Blood Transfusion Reaction: No - Integumentary Hx Dermatological Disorder: No - Musculoskeletal/Rheumatological Hx Musculoskeletal Disorders: No - Gastrointestinal Hx Gastroesophageal Reflux: Yes - Genitourinary/Gynecological Hx Genitourinary Disorders: No - Psychiatric Hx Emotional Abuse: No Hx Physical Abuse: No Hx Substance Use: No - Surgical History Hx Gastric Bypass Surgery: Yes (07/2013) - Anesthesia Hx Anesthesia Reactions: No Hx Malignant Hyperthermia: No - Suicidal Assessment Feels Threatened In Home Enviroment: No Family/Social History - Physician Review Nursing Documentation Reviewed: Yes Family/Social History: No Known Family HX Smoking Status: Never Smoked Hx Alcohol Use: No Hx Substance Use: No Hx Substance Use Treatment: No Allergies/Home Meds Allergies/Adverse Reactions: Allergies tramadol Adverse Reaction (Verified 02/07/18 13:28) HEADACHE Home Medications: Home Meds Medication Instructions Recorded Confirmed Insulin Glargine,Hum.rec.anlog 35 unit SC HS 07/19/12 02/07/18 [Lantus] Aspirin [Aspir 81] 81 mg PO DAILY 03/09/13 02/07/18 Atorvastatin [Lipitor] 40 mg PO DAILY 07/29/15 02/07/18 Insulin Aspart, Recombinant 15 units SC TID 05/15/17 02/07/18 [Novolog] Levothyroxine Sodium 112 mcg PO DAILY 05/15/17 02/07/18 Omeprazole 40 mg PO DAILY 05/15/17 02/07/18 Ergocalciferol (Vitamin D2) 1 tab PO QWK 08/08/17 02/07/18 [Vitamin D2] Gabapentin [Neurontin] 100 mg PO BID 08/08/17 02/07/18 Cambria-3 Fatty Acids/Fish Oil [Fish 1 tab PO BID 08/08/17 02/07/18 Oil 1,000 mg Capsule] Enalapril Maleate [Vasotec] 2.5 mg PO DAILY 02/09/18 02/09/18 Review of Systems - Physician Review All systems were reviewed & negative as marked: Yes - Review of Systems Constitutional: absent: Fevers, Night Sweats Respiratory: absent: SOB, Cough Cardiovascular: absent: Chest Pain, Palpitations Gastrointestinal: absent: Abdominal Pain, Diarrhea, Nausea, Vomiting, Appetite Changes Neurological: Dizziness ("pre-syncopal"). absent: Headache Physical Exam Vital Signs Reviewed: Yes Vital Signs Temp Pulse Resp BP Pulse Ox 02/07/18 12:15 98.2 F 65 18 121/61 98 02/07/18 10:12 62 18 124/59 L 98 02/07/18 09:00 64 18 119/66 98 02/07/18 07:50 98.1 F 62 17 117/72 99 02/07/18 07:08 97.5 F L 86 18 139/77 98 Temperature: Afebrile Blood Pressure: Normal Pulse: Regular Respiratory Rate: Normal Appearance: Positive for: Well-Appearing, Non-Toxic, Comfortable Pain Distress: None Mental Status: Positive for: Alert and Oriented X 3 - Systems Exam Head: Present: Atraumatic, Normocephalic Pupils: Present: PERRL Extroacular Muscles: Present: EOMI Conjunctiva: Present: Normal Mouth: Present: Moist Mucous Membranes Neck: Present: Normal Range of Motion Respiratory/Chest: Present: Clear to Auscultation, Good Air Exchange. No: Respiratory Distress, Accessory Muscle Use Cardiovascular: Present: Regular Rate and Rhythm, Normal S1, S2. No: Murmurs Abdomen: No: Tenderness, Distention, Peritoneal Signs Back: Present: Normal Inspection Upper Extremity: Present: Normal Inspection. No: Cyanosis, Edema Lower Extremity: Present: Normal Inspection. No: Edema Neurological: Present: GCS=15, CN II-XII Intact, Speech Normal, Other (Venu Hallpike negative) Skin: Present: Warm, Dry, Normal Color. No: Rashes Psychiatric: Present: Alert, Oriented x 3, Normal Insight, Normal Concentration Medical Decision Making ED Course and Treatment: 02/07/18 07:44 Impression: A 72 year old female with multiple comorbidities complaining of episodes of dizziness Differential Diagnosis included but are not limited to: Dizziness rule out Ischemia vs. Infection Plan: -- Head CT -- Chest xray -- EKG -- Labs -- Urinalysis -- Tylenol and Meclizine -- Reassess and disposition Progress Notes: 02/07/18 08:00 EKG shows paced rhythm at 60 BPM with no sgarbossa criteria significant for acute ischemia. Interpreted by me. Report Date : 02/07/2018 08:39:15 PROCEDURE: CT HEAD WITHOUT CONTRAST. Dictator : Jacquie Vasques MD IMPRESSION: No acute intracranial abnormality. Report Date : 02/07/2018 09:39:03 Procedure: Chest xray Dictator : Dheeraj Cosme MD IMPRESSION: No active disease. - Lab Interpretations Lab Results: 02/07/18 08:00 02/07/18 08:00 Lab Results 02/07/18 08:30: Urine Color Light yellow, Urine Appearance Clear, Urine pH 6.0, Ur Specific [place] <= 1.005, Urine Protein Negative, Urine Glucose (UA) Negative, Urine Ketones Negative, Urine Blood Negative, Urine Nitrate Negative, Urine Bilirubin Negative, Urine Urobilinogen 0.2, Ur Leukocyte Esterase Small H , Urine RBC 0 - 2, Urine WBC 5 - 10, Ur Epithelial Cells 3 - 4, Amorphous Sediment Few, Urine Bacteria Many, Urine Other Uyeast 02/07/18 08:00: pO2 70 H, VBG pH 7.41, VBG pCO2 48.0, VBG HCO3 30.4 H, VBG Total CO2 31.9 H, VBG O2 Sat (Calc) 91.7 H, VBG Base Excess 4.8 H, VBG Potassium 4.2, Sodium 138.0, Chloride 105.0, Glucose 190 H, Lactate 1.6, FiO2 21.0, Venous Blood Potassium 4.2 02/07/18 08:00: Sodium 139, Chloride 101, Potassium 4.1, Carbon Dioxide 29, Anion Gap 13, BUN 23 H, Creatinine 0.6 L, Est GFR ( Amer) > 60, Est GFR ( Non-Af Amer) > 60, Random Glucose 185 H, Calcium 9.3, Magnesium 2.0, Total Bilirubin 0.2, AST 25, ALT 28, Alkaline Phosphatase 57, Lactate Dehydrogenase 445, Total Creatine Kinase 71, Troponin I < 0.01, NT-Pro-B Natriuret Pep 227, Total Protein 6.7, Albumin 3.6, Globulin 3.1, Albumin/Globulin Ratio 1.2 02/07/18 08:00: PT 10.7, INR 0.93, APTT 24.6 L 02/07/18 08:00: WBC 5.5, RBC 3.87, Hgb 10.8 L, Hct 34.2 L, MCV 88.4, MCH 27.9, MCHC 31.6, RDW 13.5, Plt Count 219, MPV 10.0, Gran % 44.0 L, Lymph % (Auto) 40.0 H, [place] % (Auto) 6.0, Eos % (Auto) 9.8 H, Baso % (Auto) 0.2, Gran # 2.43, Lymph # (Auto) 2.2, [place] # (Auto) 0.3, Eos # (Auto) 0.5, Baso # (Auto) 0.01 I have reviewed the lab results: Yes - RAD Interpretation Radiology Orders: 02/07/18 07:11 CHEST PORTABLE [RAD] Stat 02/07/18 07:42 HEAD W/O CONTRAST [CT] Stat - Medication Orders Current Medication Orders: Discontinued Medications Acetaminophen (Tylenol 325mg Tab) 650 mg PO STAT STA Stop: 02/07/18 07:43 Last Admin: 02/07/18 08:01 Dose: 650 mg MAR Pain/Vitals Document 02/07/18 08:01 BERNARDAChai (Rec: 02/07/18 08:01 LANCE [id number]) Pain Reassessment Is This A Pain ReAssessment? No Sleep Is patient sleeping during reassessment? No Presence of Pain Presence of Pain Yes Re-Assess: MAR Pain/Vitals Document 02/07/18 09:01 BERNARDAChai (Rec: 02/07/18 10:26 LANCE [id number]) Pain Reassessment Is This A Pain ReAssessment? Yes Sleep Is patient sleeping during reassessment? No Presence of Pain Presence of Pain Yes Pain Scale Used Pain Scale Used Numeric Location Intensity 3 Scale Used Numeric Aspirin (Ecotrin) 81 mg PO DAILY [facility] Last Admin: 02/09/18 11:36 Dose: 81 mg Atorvastatin Calcium (Lipitor) 40 mg PO DAILY [facility] Last Admin: 02/09/18 11:35 Dose: 40 mg Carvedilol (Coreg) 6.25 mg PO BID [facility] Last Admin: 02/09/18 12:21 Dose: Carvedilol (Coreg) 3.125 mg PO BID [facility] Last Admin: 02/09/18 11:34 Dose: 3.125 mg [facility] Pulse and Blood Pressure Document 02/09/18 11:34 DH (Rec: 02/09/18 11:34 [id number] Pulse Pulse Rate (60-90) 78 Blood Pressure Blood Pressure (100/60-150/90) 125/44 Sodium Chloride (Sodium Chloride 0.9%) 1,000 mls @ 50 mls/hr IV .Q20H [facility] Stop: 02/07/18 23:59 Last Admin: 02/07/18 13:48 Dose: 50 mls/hr eMAR Start Stop Document 02/07/18 13:48 LM (Rec: 02/07/18 13:48 LM [id number]) Intravenous Solution Start Date 02/07/18 Start Time 13:48 Insulin Human Lispro (Humalog) 15 units SC AC [facility] Last Admin: 02/09/18 12:19 Dose: Not Given Non-Admin Reason: Patient Refused Insulin Human Lispro (Humalog Med) 0 units SC ACHS [facility] PRN Reason: Protocol Last Admin: 02/09/18 12:20 Dose: Not Given Non-Admin Reason: Patient Refused Levofloxacin (Levaquin) 500 mg PO DAILY [facility] PRN Reason: Protocol Last Admin: 02/09/18 11:35 Dose: 500 mg Levothyroxine Sodium (Synthroid) 112 mcg PO ACB [facility] Last Admin: 02/09/18 08:27 Dose: 112 mcg Lisinopril (Zestril) 10 mg PO DAILY [facility] Last Admin: 02/09/18 12:21 Dose: Lisinopril (Zestril) 2.5 mg PO DAILY [facility] Last Admin: 02/09/18 11:36 Dose: Not Given Non-Admin Reason: BP Parameters Not Met MAR Pulse and Blood Pressure Document 02/09/18 11:36 DH (Rec: 02/09/18 11:36 DH [id number]) Blood Pressure Blood Pressure (100/60-150/90) 125/44 Meclizine HCl (Antivert) 25 mg PO STAT STA Stop: 02/07/18 07:44 Last Admin: 02/07/18 08:02 Dose: 25 mg Non-Formulary Medication (Levothyroxine Sodium [Levothyroxine Sodium]) 112 mcg PO DAILY [facility] Ondansetron HCl (Zofran Inj) 4 mg IVP Q6H PRN PRN Reason: Nausea/Vomiting Last Admin: 02/08/18 20:51 Dose: 4 mg IVP Administration Document 02/08/18 20:51 MS (Rec: 02/08/18 20:52 MS [id number]) Charges for Administration # of IVP Administrations 1 Pantoprazole Sodium (Protonix Ec Tab) 40 mg PO 0600 [facility] Last Admin: 02/09/18 05:46 Dose: 40 mg Pantoprazole Sodium (Protonix Ec Tab) 40 mg PO STAT STA Stop: 02/08/18 20:36 Last Admin: 02/08/18 20:52 Dose: 40 mg Pneumococcal Polyvalent Vaccine (Pneumovax 23 Vaccine) 0.5 ml IM .ONCE ONE Stop: 02/07/18 14:45 - Scribe Statement The provider has reviewed the documentation as recorded by the Scribe Kayleigh Lazo Provider Scribe Attestation: All medical record entries made by the Scribe were at my direction and personally dictated by me. I have reviewed the chart and agree that the record accurately reflects my personal performance of the history, physical exam, medical decision making, and the department course for this patient. I have also personally directed, reviewed, and agree with the discharge instructions and disposition. Disposition/Present on Arrival - Present on Arrival Any Indicators Present on Arrival: No History of DVT/PE: No History of Uncontrolled Diabetes: No Urinary Catheter: No History of Decub. Ulcer: No History Surgical Site Infection Following: None - Disposition Disposition: HOSPITALIZED
[2018-02-07 08:31] LABS: VENOUS BLOOD GAS BASE EXCESS 4.8 mmol/L (0.0-2.0); VENOUS BLOOD GAS PO2 70 mm/Hg (30-55); VENOUS BLOOD PH 7.41 (7.32-7.43)
[2018-02-07 08:38] LABS: BASO # 0.01 K/mm3 (0.0-2.0); BASO % 0.2 % (0.0-3.0); EOS # 0.5 (0.0-0.7); EOS % 9.8 % (1.5-5.0); GRAN # 2.43 (1.4-6.5); HEMOGLOBIN 10.8 g/dL (12.0-16.0); LYMPH # 2.2 (1.2-3.4); MEAN CELL VOLUME 88.4 fl (80.0-105.0); MEAN CORPUSCULAR HEMOGLOBIN 27.9 pg (25.0-35.0); MEAN CORPUSCULAR HGB CONC 31.6 g/dl (31.0-37.0); MONO # 0.3 (0.1-0.6); RBC 3.87 10^6/uL (3.5-6.1); RED CELL DISTRIBUTION WIDTH 13.5 % (11.5-14.5); WHITE BLOOD COUNT 5.5 10^3/ul (4.5-11.0)
--- NOTE | 2018-02-07 08:40 | CT ---
PROCEDURE: CT HEAD WITHOUT CONTRAST. HISTORY: Headache COMPARISON: None available. TECHNIQUE: Axial computed tomography images were obtained through the head/brain without intravenous contrast. Radiation dose: Total exam DLP = 942.88 mGy-cm. This CT exam was performed using one or more of the following dose reduction techniques: Automated exposure control, adjustment of the mA and/or kV according to patient size, and/or use of iterative reconstruction technique. FINDINGS: HEMORRHAGE: No intracranial hemorrhage. BRAIN: [place]-white matter differentiation is preserved. There is no mass, mass effect or abnormal extra-axial fluid collection. VENTRICLES: The ventricles are normal in size, shape and configuration. CALVARIUM: The skull base and calvarium are normal. PARANASAL SINUSES: Predominantly clear. MASTOID AIR CELLS: Predominantly clear. OTHER FINDINGS: None. IMPRESSION: No acute intracranial abnormality.
[2018-02-07 08:41] LABS: ALB/GLOB RATIO 1.2 (1.1-1.8); ALBUMIN 3.6 g/dL (3.0-4.8); ALT/SGPT 28 U/L (7-56); AST/SGOT 25 U/L (14-36); BLOOD UREA NITROGEN 23 mg/dL (7-21); CALCIUM 9.3 mg/dL (8.4-10.5); GFR AFRICAN-AMERICAN > 60; GFR NON-AFRICAN AMERICAN > 60
[2018-02-07 08:46] LABS: INR 0.93 (0.93-1.08); PARTIAL THROMBOPLASTIN TIME 24.6 Seconds (25.1-36.5); PROTHROMBIN TIME 10.7 SECONDS (9.4-12.5)
[2018-02-07 08:51] LABS: B-TYPE NATRIURETIC PEPTIDE 227 pg/mL (0-450); TROPONIN I < 0.01 ng/mL
--- NOTE | 2018-02-07 09:41 | RAD ---
HISTORY: dizziness COMPARISON: 05/15/2017 FINDINGS: LUNGS: No active pulmonary disease. PLEURA: No significant pleural effusion identified, no pneumothorax apparent. CARDIOVASCULAR: Normal. OSSEOUS STRUCTURES: Sternal wires VISUALIZED UPPER ABDOMEN: Normal. OTHER FINDINGS: Pacemaker IMPRESSION: No active disease.
[2018-02-07 09:52] LABS: URINE BILIRUBIN NEGATIVE (NEGATIVE); URINE BLOOD NEGATIVE (NEGATIVE); URINE GLUCOSE (UA) NEGATIVE (NEGATIVE); URINE LEUKOCYTE ESTERASE SMALL Leu/uL (NEGATIVE); URINE PROTEIN NEGATIVE mg/dL (<30 mg/dL); URINE UROBILINOGEN 0.2 E.U./dL (<1 E.U./dL)
[2018-02-07 09:54] LABS: URINE APPEARANCE CLEAR (CLEAR); URINE COLOR LIGHT YELLOW (YELLOW)
[2018-02-07 09:58] LABS: URINE RBC 0 - 2 /hpf (0-2)
[2018-02-07 09:59] LABS: URINE AMORPHOUS SEDIMENT FEW; URINE BACTERIA MANY (NEG)
--- NOTE | 2018-02-07 10:52 | CARD ---
APPROVED REPORT EKG Measurement Heart [id number] <Conclusion> Dual chamber paced rhythm Abnormal ECG
[2018-02-07] MEDS ORDERED: Sodium Chloride 0.9% 1,000 ML IV SCH (13:45)
[2018-02-07] MEDS ORDERED: Pneumococcal 23-Valent Vaccine IM ONE (14:44)
[2018-02-07] MEDS ORDERED: INSULIN ASPART RECOMBINANT 15 UNIT SC SCH (18:00)
--- NOTE | 2018-02-07 18:20 | PN ---
DATE: 02/07/2018 REASON FOR THE CONSULTATION: Followup cardiac evaluation, near syncope, coronary artery disease, status post pacemaker. 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 in the morning where woke up and she has to hold the wall to prevent from falling. Had a similar episode 3 times over a period of 3-4 weeks. Denies any chest pain. Denies any shortness of breath. Denies any palpitation. PAST MEDICAL HISTORY: Significant for coronary artery disease, status post 1-vessel bypass in the past secondary to anomalous origin of the right coronary artery; history of pacemaker, history of recently generator change on 03/12/2013. Previous cardiac workup as follows; the patient had stress test on 07/28/2015 that showed significant ejection fraction of 72%. PAST SURGICAL HISTORY: Significant for pacemaker; history of coronary artery bypass surgery, 1-vessel; history of gastric bypass. SOCIAL HISTORY: Denies any history of alcohol abuse. CURRENT MEDICATIONS: The patient is taking omeprazole, levothyroxine, insulin, enalapril, carvedilol, atorvastatin, aspirin. REVIEW OF SYSTEMS: As per HPI. PHYSICAL EXAMINATION: VITAL SIGNS: Temperature afebrile, heart rate 65, blood pressure 121/61. HEENT: PERRLA. Extraocular muscles intact. NECK: Supple. No carotid bruit or thyromegaly. CHEST: Clear to auscultation. HEART: S1 and S2 regular. ABDOMEN: Soft. EXTREMITIES: Clubbing and cyanosis negative. LABORATORY DATA: Blood workup as follows; WBC 5.5, hemoglobin 10.8, hematocrit 34.2, platelet count 219. Chemistry shows sodium , potassium 4.1, chloride 101, carbon dioxide 29, anion gap of , BUN 23, creatinine 0.6. Troponin 0.01, negative. IMPRESSION: Rule out orthostatic hypotension; diabetes; hypertension; hyperlipidemia; coronary artery disease, status post 1-vessel bypass; status post permanent pacemaker; morbid obesity, status post gastric bypass. RECOMMENDATIONS: Check for orthostatic hypotension. Resume medications. I will order beta-marquise, echo. Lipid profile. Check hemoglobin A1c. Stress test tomorrow. Further recommendations after the findings of initial workup. We will follow with you. Thank you, Dr. Mccartney, for providing us the opportunity in taking care of the patient, [place]. Nikole Ennis MD
--- NOTE | 2018-02-07 18:50 | HP ---
DATE OF EXAM: HISTORY OF PRESENT ILLNESS: The patient is 72-year-old was brought to emergency room by family. Then in the last few weeks, she has been feeling very weak, dizzy, lightheaded, that seemed to have passed out. Similar situation happened this morning, so family called ambulance and she was brought to the emergency room. Denies any nausea or vomiting. No previous history of fever or chills. She did have cold symptoms almost a month ago, but currently she has no upper respiratory symptoms including cough, congestion, runny or stuffy nose. PAST MEDICAL HISTORY: Significant for hypertension, coronary artery disease status post open heart surgery multiple years ago, history of gastric bypass, history of pacemaker placement 3 years ago, hyperlipidemia, insulin-dependent diabetes, history of esophageal reflux disease. FAMILY HISTORY: Relevant only for diabetes and blood pressure in the family. SOCIAL HISTORY: She lives by herself. She used to be heavy smoker, but quit few years ago. MEDICATIONS AT HOME: She is on gabapentin 100 mg twice a day, enalapril 10 mg daily, atorvastatin 40 mg daily, aspirin 81 daily, NovoLog 15 units before each meal, omeprazole 40 mg daily, levothyroxine 112 mcg daily. PHYSICAL EXAMINATION: GENERAL: She is awake, alert, oriented, communicative. VITAL SIGNS: She is afebrile, pulse 65, respirations 18, blood pressure 121/61. LUNGS: Bilateral good airflow. No rhonchi or crackle. HEART: S1 and S2, audible. ABDOMEN: Soft, nontender. No rebound. No guarding. NEUROLOGICAL: The patient is awake, alert, oriented, able to communicate. LABORATORY DATA: WBC is 5.5, hemoglobin 10.8, hematocrit 34.2, platelet 219. PT 10.7, INR 0.93, PTT 24.6. Chemistry: Sodium 139, potassium 4.1, chloride 101, CO2 29, BUN 23, creatinine 0.6, blood sugar of 196. Urinalysis shows small leukocyte. ASSESSMENT: 1. Near syncope. 2. Intermittent dizziness. 3. Coronary artery disease status post angioplasty. 4. History of hypertension. 5. Insulin-dependent diabetes. PLAN: We will order for carotid Doppler and MRI of the brain. Neuro consult by Dr. Rodriguez has been requested. Dr. Ennis will also be seeing the patient. I will add some antibiotics and we will reevaluate the patient in a.m. Frances Mccartney MD
--- NOTE | 2018-02-07 19:13 | CON ---
DATE: HISTORY OF PRESENT ILLNESS: A 72-year-old female with past medical history of diabetes, status post CABG, pacemaker, and came with the complaint of dizziness. The patient went to the bathroom, had a syncopal episode, did not fall, did not hit her head, did not lose consciousness, came to the hospital. CAT scan of the head was done, which was reported negative. PAST MEDICAL HISTORY: As above. ALLERGIES: ALLERGY TO TRAMADOL. HOME MEDICATIONS: Insulin, enalapril, Lipitor, levothyroxine, omeprazole, Coreg, Neurontin. PHYSICAL EXAMINATION: VITAL SIGNS: Blood pressure 139/77. HEENT: Normocephalic, atraumatic. NECK: Supple. NEUROLOGIC: Alert, awake, oriented x3. No aphasia. Cranial nerves II through XII were tested. Pupils reactive. EOM intact. Visual field full. No facial asymmetry. Tongue midline. Motor examination: Moves all the extremities equally. Tone normal. Deep tendon reflexes are 1+. Both plantars downgoing. Sensory appears intact. Cerebellar, gait deferred. IMPRESSION: Syncope, less likely seizure. Workup in progress. PLAN: Continue present management. We will follow up. Kayden Rodriguez MD
[2018-02-08 07:18] LABS: BASO # 0.01 K/mm3 (0.0-2.0); BASO % 0.2 % (0.0-3.0); EOS # 0.5 (0.0-0.7); EOS % 9.4 % (1.5-5.0); GRAN # 2.46 (1.4-6.5); GRAN % 46.1 % (50.0-68.0); HEMOGLOBIN 10.7 g/dL (12.0-16.0); LYMPH # 2.1 (1.2-3.4); LYMPH % 39.4 % (22.0-35.0); MEAN CELL VOLUME 88.3 fl (80.0-105.0); MEAN CORPUSCULAR HEMOGLOBIN 27.8 pg (25.0-35.0); MEAN CORPUSCULAR HGB CONC 31.5 g/dl (31.0-37.0); MEAN PLATELET VOLUME 10.1 fl (7.0-11.0); MONO # 0.3 (0.1-0.6); MONO % 4.9 % (1.0-6.0); RBC 3.85 10^6/uL (3.5-6.1); RED CELL DISTRIBUTION WIDTH 13.4 % (11.5-14.5); WHITE BLOOD COUNT 5.3 10^3/ul (4.5-11.0)
[2018-02-08 08:09] LABS: ALB/GLOB RATIO 1.2 (1.1-1.8); ALBUMIN 3.6 g/dL (3.0-4.8); ALT/SGPT 30 U/L (7-56); AST/SGOT 27 U/L (14-36); BLOOD UREA NITROGEN 18 mg/dL (7-21); CALCIUM 9.2 mg/dL (8.4-10.5); GFR AFRICAN-AMERICAN > 60; GFR NON-AFRICAN AMERICAN > 60; HDL CHOLESTEROL 36 mg/dL (29-60)
[2018-02-08 08:17] LABS: LDL CHOLESTEROL 47 mg/dL (0-129)
[2018-02-08] MEDS ORDERED: Aminophylline 25 mg/ml Inj ONE (08:41)
[2018-02-08] MEDS ORDERED: LEVOTHYROXINE SODIUM 112 MCG PO SCH (10:00)
[2018-02-08] MEDS: Insulin Lispro 1 UNITS/0.01 ML SC SCH ×3 (11:54→16:53)
[2018-02-08] MEDS: Insulin Lispro (humaLOG) MEDIUM Coverage SC SCH ×4 (11:55→23:22)
[2018-02-08] MEDS: levoFLOXacin 500 MG TAB PO SCH (14:28)
[2018-02-08] MEDS: Levothyroxine 112 MCG TAB PO SCH (14:42)
--- NOTE | 2018-02-08 15:10 | PN ---
DATE: REASON FOR CONSULTATION AND FOLLOWUP: Cardiac evaluation, syncope, coronary artery disease status post pacemaker. SUBJECTIVE: The patient denies any chest pain, shortness of breath or any palpitation. OBJECTIVE: GENERAL: Not in apparent distress. Yesterday, orthostatic was done. No evidence of orthostatic hypotension. VITAL SIGNS: Blood pressure: Lying 131/69, sitting 137/69, standing 141/70. Rest of the vital as follows: Temperature afebrile, heart rate 60, blood pressure 132/60. HEENT: PERRLA, intact. NECK: Supple. No carotid bruit or thyromegaly. CHEST: Clear to auscultation. HEART: S1 and S2 regular. ABDOMEN: Soft. EXTREMITIES: Clubbing and cyanosis negative. LABORATORY DATA: WBC 5.3, hemoglobin , hematocrit 34, platelet count 212. Chemistry shows sodium 141, potassium 4.2, chloride 102, carbon dioxide 31, anion gap of 12, BUN 18, creatinine 0.7. TSH 0.79. Triglycerides 190, cholesterol 118, LDL 47, HDL 36. IMPRESSION: Admitted with dizziness, giving IV fluid. No evidence of orthostatic hypotension, diabetes, hypertension, hyperlipidemia, status post 1-vessel coronary artery bypass because anomalous origin of right coronary artery, history of pacemaker, history of pacemaker generator change in 2010, history of obesity, status post gastric bypass. RECOMMENDATION: Do echo and stress test, monitor on telemetry, no evidence of arrhythmia. We will follow with you. Interim, continue Coreg 6.25 mg daily and continue baby aspirin 81 mg daily. We will add baby aspirin that the patient was taking before. Further recommendation after stress and echo. Hemoglobin A1c pending. We will follow with you. Yesterday give little fluid. The patient feels better. Thank you Dr. Mccartney, for providing us the opportunity in taking care of the patient, [place]. Nikole Ennis MD
--- NOTE | 2018-02-08 17:14 | DS ---
HISTORY OF PRESENT ILLNESS: The patient is 72 years old, seen and examined. No episode of dizziness since she is here. PHYSICAL EXAMINATION: VITAL SIGNS: She is afebrile, pulse 68, respirations 18, blood pressure 132/60. LUNGS: Bilateral good air flow. No rhonchi or crackles. HEART: S1, S2 audible. ABDOMEN: Soft. Nontender. No rebound. No guarding. NEUROLOGIC: She is awake, alert, oriented, communicative, ambulatory. LABORATORY EXAM: WBC 5.3, hemoglobin 10.7, hematocrit 34, and platelets of 212. Chemistry: Sodium 141, potassium 4.2, chloride 102, CO2 of 31. BUN 18, creatinine 0.8. Blood sugar of 181. Triglycerides 190. Urinalysis is unremarkable. Stool Hemoccult is negative. Urine has gram-negative rods. Sensitivity to follow. Echocardiogram is pending. Stress test done earlier is pending. Carotid Doppler is pending. ASSESSMENT: 1. Multiple episodes of near syncope, etiology is still unclear. 2. Gram-negative marian urinary tract infection, early Escherichia coli. 3. Coronary artery disease, status post open heart surgery. 4. History of hypertension. 5. Non-insulin dependent diabetes. PLAN: Currently, the patient is on carvedilol, Ecotrin, atorvastatin, levothyroxine and lisinopril. I will add Levaquin. Awaiting MRI, awaiting Neuro followup. If cleared from Neuro and Cardiology point of view, can be discharged later today or tomorrow morning. Frances Mccartney MD
--- NOTE | 2018-02-08 17:26 | CARD ---
APPROVED REPORT Protocol: LEXISCAN Test Type: Lexiscan Sestamibi Stress Test Attending Physician: Dr. Nikole Smith Referring Physician: Dr. Frances Mccartney Test Indications: CAD Height:5 ft 0 in Weight:230lbs Medications: Lipitor, Coreg, Synthroid Medical History: 72 y/o female with a history of htn, diabetes, hyothyroid, gastric bypass, s/p CABG and pacemaker insertion Target HR: 150 bpm Resting ECG: Pacemaker Rythm. Resting Heart Rate: 60 bpm Resting Blood Pressure: 140/70mmHg Submaximum (85%): 128 bpm PROCEDURE Pharmacologic stress testing was performed using 0.4mg per 5ml of regadenoson given intravenously over 7-10 seconds. Reversal agent aminophyline 100 mg, given intravenously for Other. POST EXERCISE Reason for Termination: Protocol completed Target HR: No Max HR: 60 bpm 46% of Maximum Predicted HR: 150 bpm Exercise duration: 00:30 min:sec, 0 Stage Exercise capacity: 1.0METs Max Blood Pressure: 140/70mmHg Blood Pressure response to exercise: normal resting BP - appropriate response Heart Rate response to exercise: appropriate Chest Pain: No, none Angina index: 0 Arrhythmia: No, none ST Change: Yes, Difficult to comment due to Pacemaker Rythm. Deviation: 0 mm TEST SUMMARY [id number]/.0. [id number]/70.0. INFUSIONDOSE 100:[id number]/.0. [id number]/60.0. INTERPRETATION Stress EKG Conclusion: IV LEXISCAN NUCLEAR STRESS TEST NEGATIVE FOR CHEST PAIN. DIFFICULT TO COMMENT ABOUT ST-T CHANGES DUE TO PACEMAKER RYTHM. NUCLEAR SCAN REPORT PENDING. Signed by Nikole Smith Electronically Approved: 02/08/2018 09:57:32 EXAM: Myocardial Perfusion REST/STRESS Stress Test Type: Pharmacologic Imaging Protocol Rest Spect myocardial perfusion imaging was performed in supine position 45 minutes following the injection of 10.3 mCi of Tc-99 Myoview. At peak stress, the patient was injected intravenously with 30.7mCi of Tc-99 tetrofosmin after an infusion time of 0 minutes and 10 seconds. Gated Stress Spect was performed 65 minutes after intravenous Tc-99 Myoview injection. The images were gated to evaluate regional wall motion and calculate ventricular ejection fraction.Images were reconstructed using backfilter projection method in short horizontal and verticle long axis. Spect slices were generated. LV Perfusion The quality of the study is good. The left ventricle is normal in size. The right ventricle is unremarkable. The lung uptake is normal. The distribution of tracer reveals an area of moderately decreased perfusion in the distal anteroseptal and apical kilgore on the stress study. The remainder of the LV myocardium is unremarkable. The rest myocardial perfusion study shows no significant change. Wall Motion Wall motion study shows good contractility of the left ventricle. LVEF = 60%. Conclusion 1. Probably normal SPECT myocardial perfusion study. 2. Fixed, distal anteroseptal and apical defects are most likely due to breast attenuation. 3. Normal gated wall motion of the left ventricle. 4. In comparison with the last study of 07/28/2015, there is no significant change.
--- NOTE | 2018-02-08 17:39 | CARD ---
APPROVED REPORT EXAM: Two-dimensional and M-mode echocardiogram with Doppler and color Doppler. INDICATION Syncope 2D DIMENSIONS Left Atrium (2D)3.9 (1.6-4.0cm)IVSd1.1 (0.7-1.1cm) LVDd4.1 (3.9-5.9cm)PWd1.2 (0.7-1.1cm) LVDs2.8 (2.5-4.0cm)FS (%) 32.4 % LVEF (%)61.2 (>50%) M-Mode DIMENSIONS Aortic Root2.70 (2.2-3.7cm)Aortic Cusp Exc.1.60 (1.5-2.0cm) Aortic Valve AoV Peak Rcnhvpyo608.0cm/Marcin Peak GR.6mmHg Mitral Valve MV E Txsyeotj16.3cm/sMV A Ebxliwbu55.6cm/sE/A ratio0.8 TDI E/Lateral E'0.0E/Medial E'0.0 Tricuspid Valve TR Peak Jxzyhaeh001pe/sRAP MEZTQZUS81yqHtKS Peak Gr.23mmHg [id number] LEFT VENTRICLE The left ventricle is normal size. There is borderline to mild concentric left ventricular hypertrophy. The left ventricular function is normal.EF-60-65% There is normal LV segmental wall motion. Transmitral Doppler flow pattern is Grade III-reversible restrictive diastolic dysfunction. No left ventricle thrombus noted on this study. There is no ventricular septal defect visualized. There is no left ventricular aneurysm. There is no mass noted in the left ventricle. RIGHT VENTRICLE The right ventricle is normal size. There is normal right ventricular wall thickness. The right ventricular systolic function is normal. ATRIA The left atrium is borderline dilated. The right atrium size is normal. The interatrial septum is intact with no evidence for an atrial septal defect. AORTIC VALVE The aortic valve is calcified but opens well. No aortic regurgitation is present. There is no aortic valvular stenosis. There is no aortic valvular vegetation. MITRAL VALVE The mitral valve is thickened but opens well. Mitral regurgitation is mild. There is no mitral valve stenosis. There is no evidence of mitral valve prolapse. TRICUSPID VALVE The tricuspid valve leaflets are thickened , but open well. There is mild tricuspid regurgitation.RVSP-33 mmof hg. There is no tricuspid valve stenosis. There is no tricuspid valve prolapse or vegetation. PULMONIC VALVE The pulmonary valve is normal in structure. There is no pulmonic valvular regurgitation. There is no pulmonic valvular stenosis. GREAT VESSELS The aortic root is normal in size. The ascending aorta is normal in size. The pulmonary artery is normal. The IVC is normal in size and collapses >50% with inspiration. PERICARDIAL EFFUSION There is no pleural effusion. There is no pericardial effusion. <Conclusion> The left ventricle is normal size. There is borderline to mild concentric left ventricular hypertrophy. The left ventricular function is normal.EF-60-65% Mitral regurgitation is mild. There is mild tricuspid regurgitation.RVSP-33 mmof hg. The IVC is normal in size and collapses >50% with inspiration. There is no pericardial effusion.
--- NOTE | 2018-02-08 18:32 | US ---
PROCEDURE: Bilateral carotid artery duplex ultrasound HISTORY: Carotid stenosis syncope PHYSICIAN(S): Suhas Perez MD. TECHNIQUE: Duplex sonography and color-flow Doppler were used to evaluate the carotid bifurcations and limited segments of the vertebral arteries bilaterally. FINDINGS: There is mild smooth heterogeneous plaque noted at the carotid bifurcations bilaterally. The peak systolic velocity in the proximal right internal carotid artery is 71 cm/sec. This corresponds to a 20 to 39% proximal right ICA stenosis. Normal systolic velocities are noted in the proximal right external carotid artery. There is antegrade flow in the right vertebral artery. The peak systolic velocity in the proximal left internal carotid artery is 81 cm/sec. This corresponds to a 20 to 39% proximal left ICA stenosis. Normal systolic velocities are noted in the proximal left external carotid artery. There is antegrade flow in the left vertebral artery. IMPRESSION: 1. Bilateral 20-39% proximal ICA stenoses. 2. Antegrade flow in both vertebral arteries.
[2018-02-08] MEDS ORDERED: Pantoprazole 40 mg EC Tab PO STA (20:35)
[2018-02-09 00:55] VITALS: TEMP 97.4
[2018-02-09] MEDS ORDERED: Pantoprazole 40 mg EC Tab PO SCH (06:00)
[2018-02-09 06:45] VITALS: RESP 16; O2SAT 98
[2018-02-09] MEDS: Levothyroxine 112 MCG TAB PO SCH (08:27)
[2018-02-09] MEDS: Insulin Lispro 1 UNITS/0.01 ML SC SCH ×2 (08:27→12:19)
[2018-02-09] MEDS: Insulin Lispro (humaLOG) MEDIUM Coverage SC SCH ×2 (08:28→12:20)
[2018-02-09] MEDS: levoFLOXacin 500 MG TAB PO SCH (11:35)
[2018-02-09 11:40] VITALS: BP 125/44; PULSE 78
--- NOTE | 2018-02-09 14:43 | PN ---
DATE: 02/09/2018 LOCATION: Patient is in room 372, bed 2. REASON FOR CONSULTATION AND FOLLOWUP: Syncope; coronary artery disease, status post permanent pacemaker insertion. SUBJECTIVE: Patient is lying flat in bed without chest pain, shortness of breath, palpitation. She denies any dizziness. PHYSICAL EXAMINATION VITAL SIGNS: Blood pressure 125/44, respirations 16, pulse 78, patient is afebrile. HEENT: Head is normocephalic. Eyes: Pupils are normal. Conjunctivae are slightly pale. NECK: JVP low. Carotids equal. THORAX: AP diameter is normal. LUNGS: No rales. CARDIOVASCULAR: S1 and S2. ABDOMEN: Soft. No tenderness. No organomegaly. Bowel sounds normal. EXTREMITIES: No clubbing. No cyanosis. LABORATORY DATA: WBC 5.3, hemoglobin 10.7, hematocrit 34, platelets 212. Random sugar 168. Labs on 02/08/2018 showed sodium 141, potassium 4.2, BUN 18, creatinine 0.7. Random sugar 181. Calcium 9.2. Phosphorus, magnesium, total bilirubin, AST, ALT normal. Total protein and albumin normal. Myocardial stress test was done, it was negative with LV ejection fraction of 60%. Patient's echo was done also on 02/08/2018 and it showed normal sized LV, myracweluc-am-slhd concentric left ventricular hypertrophy. Left ventricular function normal. EF 60% to 65%, mild mitral regurg, mild tricuspid regurg, RVSP 33 mmHg. DIAGNOSES: Dizziness. 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 RECOMMENDATIONS: Patient's echo and stress test do not show any significant abnormality and patient will continue present medication of Coreg 6.25 mg daily and aspirin 81 mg daily. We will follow with you. Nikole Smith MD
--- NOTE | 2018-02-09 22:18 | DS ---
HISTORY OF PRESENT ILLNESS: Patient is 72 years old, seen and examined, doing well. No nausea, no vomiting, no diarrhea. No dizziness. Eating and tolerating. PHYSICAL EXAMINATION: VITAL SIGNS: She is afebrile. Pulse 70, respirations 16, blood pressure 125/44. LUNGS: Bilateral good airflow. No rhonchi or crackle. HEART: S1, S2 audible. ABDOMEN: Soft, nontender. No rebound. No guarding. NEUROLOGICAL: She is awake, alert, oriented, communicative, ambulatory. LABORATORY DATA: Blood sugar is 168. I reviewed her vital signs from last 24 hours. Her blood pressure seems to be running low. Her dizziness could be secondary to hypotension. ASSESSMENT: 1. Near syncope. 2. History of open heart surgery. 3. Coronary artery disease, status post angioplasty. 4. History of pacemaker placement. 5. Non-insulin dependent diabetes. 6. Hyperlipidemia. 7. Hypothyroidism. PLAN: We will cut down her carvedilol to 3.125 twice a day. We will decrease her lisinopril to 2.5 daily and she will resume all her other medications including aspirin, insulin, Levaquin, atorvastatin, Protonix, levothyroxine, and she will follow with her PMD. Frances Mccartney MD : 02/09/2018 12:21:00
== END 2018-02-09 12:58 | disposition home health service (06) ==
LOC: ED 06:49 → ERH 10:00 → 3RSO 12:41
PROVIDERS: ADMIT Internal Medicine; ATTEND Internal Medicine
DX: R55 Syncope and collapse (principal); N39.0 Urinary tract infection, site not specified; B96.20 Unspecified Escherichia coli [E. coli] as the cause of diseases classified elsewhere; I25.10 Atherosclerotic heart disease of native coronary artery without angina pectoris; E11.9 Type 2 diabetes mellitus without complications; I10 Essential (primary) hypertension; E78.5 Hyperlipidemia, unspecified; E03.9 Hypothyroidism, unspecified; R42 Dizziness and giddiness; K21.9 Gastro-esophageal reflux disease without esophagitis; Z98.84 Bariatric surgery status; Z95.1 Presence of aortocoronary bypass graft; Z79.4 Long term (current) use of insulin; Z95.0 Presence of cardiac pacemaker; Z87.891 Personal history of nicotine dependence
CPT/HCPCS: 36415; 70450; 71045; 78452; 80053; 80061; 81001; 82550; 82803; 82948; 83036; 83615; 83735; 83880; 84100; 84443; 84484; 85025; 85610; 85730; 87086; 87181; 93005; 93017; 93306; 93880; 99285; A9502; G0328; G0378; J2405; J7040

== ENCOUNTER 2018-06-10 22:51 | Observation (INO) | payer MEDICARE, MEDICAID ==
[2018-06-10 23:20] VITALS: BMI 33.3
--- NOTE | 2018-06-10 23:34 | ED PDOC ---
Arrival/HPI - General Chief Complaint: Abdominal Pain Time Seen by Provider: 06/10/18 23:11 Historian: Patient - History of Present Illness Narrative History of Present Illness (Text): 06/10/18 23:32 Bettina Hill is a 73 year old female, whose past medical history includes hypertension, CABG, gastric bypass, pacemaker, hyperlipidemia, diabetes, and GERD, who presents to the Emergency department complaining of chest pain. Patient states she developed mid-sternal chest pain radiating to her back today with 1 episode of vomiting. Patient denies any fever, chills, shortness of breath, diarrhea, urinary symptoms, back pain, neck pain, headache, dizziness, trauma/injury, suicidal/homicidal ideation or any other complaints. Symptom Onset: Gradual Symptom Course: Unchanged Activities at Onset: Light Context: Home Past Medical History - Provider Review Nursing Documentation Reviewed: Yes - Infectious Disease Hx of Infectious Diseases: None - Tetanus Immunization Tetanus Immunization: Unknown - Cardiac Hx Cardiac Disorders: Yes (cad,cabg-open heart) - Pulmonary Hx Respiratory Disorders: No - Neurological Hx Neurological Disorder: Yes Hx Dizziness: Yes - HEENT Hx HEENT Disorder: No - Renal Hx Pyelonephritis: Yes - Endocrine/Metabolic Hx Diabetes Mellitus Type 2: Yes Hx Hypothyroidism: Yes - Hematological/Oncological Hx Blood Disorders: Yes (sickle cell dse) - Integumentary Hx Dermatological Disorder: No - Musculoskeletal/Rheumatological Hx Falls: Yes Hx Unsteady Gait: Yes (cane) - Gastrointestinal Hx Gastrointestinal Disorders: Yes - Genitourinary/Gynecological Hx Urinary Tract Infection: Yes - Psychiatric Hx Emotional Abuse: No Hx Physical Abuse: No Hx Substance Use: No - Surgical History Hx Gastric Bypass Surgery: Yes (07/2013) - Anesthesia Hx Anesthesia Reactions: No Hx Malignant Hyperthermia: No - Suicidal Assessment Feels Threatened In Home Enviroment: No Family/Social History - Physician Review Nursing Documentation Reviewed: Yes Family/Social History: Unknown Family HX Smoking Status: Never Smoked Hx Alcohol Use: No Hx Substance Use: No Hx Substance Use Treatment: No Allergies/Home Meds Allergies/Adverse Reactions: Allergies tramadol Adverse Reaction (Verified 06/10/18 23:20) HEADACHE Home Medications: Home Meds Medication Instructions Recorded Confirmed Insulin Glargine,Hum.rec.anlog 35 unit SC HS 07/19/12 06/10/18 [Lantus] Aspirin [Aspir 81] 81 mg PO DAILY 03/09/13 06/10/18 Atorvastatin [Lipitor] 40 mg PO DAILY 07/29/15 06/10/18 Insulin Aspart, Recombinant 15 units SC TID 05/15/17 06/10/18 [Novolog] Levothyroxine Sodium 112 mcg PO DAILY 05/15/17 06/10/18 Omeprazole 40 mg PO DAILY 05/15/17 06/10/18 Ergocalciferol (Vitamin D2) 1 tab PO QWK 08/08/17 06/10/18 [Vitamin D2] Gabapentin [Neurontin] 100 mg PO BID 08/08/17 06/10/18 Sanborn-3 Fatty Acids/Fish Oil [Fish 1 tab PO BID 08/08/17 06/10/18 Oil 1,000 mg Capsule] Enalapril Maleate [Vasotec] 2.5 mg PO DAILY 02/09/18 06/10/18 Review of Systems - Physician Review All systems were reviewed & negative as marked: Yes - Review of Systems Constitutional: Normal. absent: Fevers Eyes: Normal ENT: Normal Respiratory: Normal. absent: SOB, Cough Cardiovascular: Chest Pain Gastrointestinal: Nausea, Vomiting Genitourinary Female: Normal. absent: Dysuria, Frequency, Hematuria, Urine Output Changes Musculoskeletal: Normal. absent: Back Pain, Neck Pain Skin: Normal. absent: Rash Neurological: Normal. absent: Headache, Dizziness Endocrine: Normal Hemo/Lymphatic: Normal Psychiatric: Normal Physical Exam Vital Signs Reviewed: Yes Vital Signs Temp Pulse Resp BP Pulse Ox 06/10/18 23:36 98.0 F 60 16 132/74 98 Temperature: Afebrile Blood Pressure: Normal Pulse: Regular Respiratory Rate: Normal Appearance: Positive for: Well-Appearing, Non-Toxic, Comfortable Pain Distress: None Mental Status: Positive for: Alert and Oriented X 3 - Systems Exam Head: Present: Atraumatic, Normocephalic Pupils: Present: PERRL Extroacular Muscles: Present: EOMI Conjunctiva: Present: Normal Mouth: Present: Moist Mucous Membranes Neck: Present: Normal Range of Motion. No: Meningeal Signs, MIDLINE TENDERNESS , Paraspinal Tenderness Respiratory/Chest: Present: Clear to Auscultation, Good Air Exchange. No: Respiratory Distress, Accessory Muscle Use Cardiovascular: Present: Regular Rate and Rhythm, Normal S1, S2. No: Murmurs Abdomen: No: Tenderness, Distention, Peritoneal Signs Back: Present: Normal Inspection. No: CVA Tenderness, Midline Tenderness, Paraspinal Tenderness Upper Extremity: Present: Normal Inspection. No: Cyanosis, Edema Lower Extremity: Present: Normal Inspection. No: Edema Neurological: Present: GCS=15, CN II-XII Intact, Speech Normal Skin: Present: Warm, Dry, Normal Color. No: Rashes Psychiatric: Present: Alert, Oriented x 3, Normal Insight, Normal Concentration Medical Decision Making ED Course and Treatment: 06/10/18 23:32 Impression: 73 year old female complaining of chest pain and vomiting. Plan: -- EKG -- Chest X-ray -- Labs, cardiac enzymes, lipase -- Reassess and disposition Prior Visits: Notes and results from previous visits were reviewed. On 02/07/2018, pt was seen in the Emergency department for dizziness/near- syncope. Pt was admitted to the hospital for further evaluation. Progress Notes: 06/11/18 00:36 Chest X-ray reviewed, shows no acute processes. 06/11/18 01:20 Reviewed EKG, 100% paced rhythm. 06/11/18 02:[address] Polanco, covering for Dr. Mccartney, who is aware and agrees with plan. Pt will go to Telemetry observation for chest pain. Requests Dr. Ennis on consult. - Lab Interpretations Lab Results: 06/11/18 00:26 06/10/18 23:56 Lab Results 06/11/18 00:26: WBC 6.6 D, RBC 4.00, Hgb 10.3 L, Hct 32.3 L, MCV 80.8 D, MCH 25.8, MCHC 31.9, RDW 15.1 H, Plt Count 240, MPV 9.4 06/11/18 00:26: PT 10.7, INR 0.94, APTT 26.0 06/10/18 23:56: Sodium 141, Potassium 4.8, Chloride 104, Carbon Dioxide 26, Anion Gap 17, BUN 17, Creatinine 0.7, Est GFR ( Amer) > 60, Est GFR (Non- Af Amer) > 60, Random Glucose 122 H, Calcium 9.0, Total Bilirubin 0.5, AST 37 H D, ALT 28, Alkaline Phosphatase 51, Lactate Dehydrogenase 959 H, Total Creatine Kinase 284 H, CK-MB (CK-2) 1.1, CK-MB (CK-2) % Cancelled, Troponin I < 0.01, Total Protein 7.7, Albumin 4.3, Globulin 3.4, Albumin/Globulin Ratio 1.3, Lipase 136 I have reviewed the lab results: Yes - RAD Interpretation Radiology Orders: 06/10/18 23:34 CHEST PORTABLE [RAD] Stat Rice Milling Supervisor: ED Physician - EKG Interpretation Interpreted by ED Physician: Yes Type: 12 lead EKG - Scribe Statement The provider has reviewed the documentation as recorded by the Scribe Heike Serna All medical record entries made by the Jamilaibe were at my direction and personally dictated by me. I have reviewed the chart and agree that the record accurately reflects my personal performance of the history, physical exam, medical decision making, and the department course for this patient. I have also personally directed, reviewed, and agree with the discharge instructions and disposition. Disposition/Present on Arrival - Present on Arrival Any Indicators Present on Arrival: No History of DVT/PE: No History of Uncontrolled Diabetes: No Urinary Catheter: No History of Decub. Ulcer: No History Surgical Site Infection Following: None - Disposition Have Diagnosis and Disposition been Completed?: Yes Diagnosis: Chest pain Disposition: HOSPITALIZED Disposition Time: 01:45 Patient Plan: Observation Condition: STABLE
[2018-06-11 00:21] LABS: GFR AFRICAN-AMERICAN > 60; GFR NON-AFRICAN AMERICAN > 60; LIPASE 136 U/L (23-300)
[2018-06-11 00:28] LABS: ALB/GLOB RATIO 1.3 (1.1-1.8); ALBUMIN 4.3 g/dL (3.0-4.8); ALT/SGPT 28 U/L (7-56); AST/SGOT 37 U/L (14-36); BLOOD UREA NITROGEN 17 mg/dL (7-21)
[2018-06-11 00:43] LABS: INR 0.94; PROTHROMBIN TIME 10.7 SECONDS (9.4-12.5)
[2018-06-11 00:46] LABS: HEMOGLOBIN 10.3 g/dL (12.0-16.0); MEAN CELL VOLUME 80.8 fl (80.0-105.0); MEAN CORPUSCULAR HEMOGLOBIN 25.8 pg (25.0-35.0); MEAN CORPUSCULAR HGB CONC 31.9 g/dl (31.0-37.0); MEAN PLATELET VOLUME 9.4 fl (7.0-11.0); RED CELL DISTRIBUTION WIDTH 15.1 % (11.5-14.5); WHITE BLOOD COUNT 6.6 10^3/ul (4.5-11.0)
[2018-06-11 00:53] LABS: CK-MB 1.1 ng/mL (0.0-3.6); TROPONIN I < 0.01 ng/mL
[2018-06-11 03:28] VITALS: RESP 20
[2018-06-11 06:13] VITALS: PULSE 60
[2018-06-11 06:14] VITALS: TEMP 98.6; O2SAT 94
[2018-06-11] MEDS ORDERED: Pantoprazole 40 mg EC Tab PO SCH (10:00)
[2018-06-11] MEDS ORDERED: Insulin Detemir 100 units/ml Vial (Levemir) SC SCH (10:00)
[2018-06-11] MEDS ORDERED: Levothyroxine 112 MCG TAB PO SCH (10:00)
[2018-06-11] MEDS ORDERED: Insulin Lispro 1 UNITS/0.01 ML SC SCH (10:00)
[2018-06-11 10:21] VITALS: BP 126/62
--- NOTE | 2018-06-11 12:58 | RAD ---
Date of service: 06/11/2018 HISTORY: fever COMPARISON: Comparison chest 02/07/2018 FINDINGS: LUNGS: Poor inspiration with low lung volumes, crowded bronchovascular markings and minor bibasilar atelectasis. PLEURA: No significant pleural effusion identified, no pneumothorax apparent. CARDIOVASCULAR: Sternotomy wires and CABG clips again noted. No change bipolar pacemaker/ defibrillator OSSEOUS STRUCTURES: No significant abnormalities. VISUALIZED UPPER ABDOMEN: Normal. OTHER FINDINGS: None. IMPRESSION: Poor inspiration with low lung volumes, crowded bronchovascular markings and minor bibasilar atelectasis.
--- NOTE | 2018-06-11 14:23 | CON ---
Copied To: Suhas Gaines MD Attending MD: Suhas Gaines MD DATE: 06/11/2018 HISTORY OF PRESENT ILLNESS: The patient is a 73-year-old woman who presents with an episode of epigastric discomfort relieved with one episode of vomiting. PAST MEDICAL HISTORY: The patient's past medical history includes hypercholesterolemia, hypertension as well as diabetes mellitus. She is status post coronary artery bypass surgery. She underwent a stress test in January of this year which was unremarkable. She denies angina. SOCIAL HISTORY: The patient does not smoke. REVIEW OF SYSTEMS: A 14-point review of systems is reviewed in detail. Her symptoms are predominantly abdominal which is now resolved. No angina. No cardiac symptomatology noted. PHYSICAL EXAMINATION: VITAL SIGNS: Blood pressure is 126/62, the heart rate is paced in the 60s. NECK: Negative JVD. LUNGS: Without rales. HEART: S1, S2. EXTREMITIES: Without edema. LABORATORY DATA: EKG is a paced rhythm. Troponins are negative so far. The sugar is 122, hemoglobin is 10.3. IMPRESSION: 1. Abdominal pain resolved with episode of vomiting. The patient is asymptomatic. No angina. 2. Coronary artery disease. 3. History of coronary artery bypass surgery. 4. Diabetes mellitus. 5. Hypertension. 6. Hypercholesterolemia. Given these findings, there is no evidence for acute coronary syndrome. The patient's last stress test is normal. From a cardiac perspective, the patient can be discharged. I have instructed the patient to follow up with Dr. Ennis as an outpatient. Suhas Gaines MD
--- NOTE | 2018-06-11 15:29 | CARD ---
APPROVED REPORT Date of service: 06/10/2018 EKG Measurement Heart [id number] <Conclusion> AV sequential or dual chamber electronic pacemaker
--- NOTE | 2018-06-11 20:02 | HP ---
Copied To: Amberly Polanco MD Attending MD: Amberly Polanco MD DATE OF EXAM: 06/11/2018 HISTORY HISTORY OF PRESENT ILLNESS: Ms. Hill 73-year-old female admitted to the hospital with left-sided chest pain. Chest pain was midsternal. No radiation. No nausea. No vomiting. No radiation to the arm. She also has history of GERD status post CABG for coronary artery disease, has a pacemaker, history of gastric bypass surgery. Chest pain resolved during hospitalization. No pain right now. PAST MEDICAL HISTORY: Coronary artery disease, CABG, hyperlipidemia, diabetes mellitus type 2, GERD and status post gastric bypass surgery, history of dizziness, unsteady gait. PAST SURGICAL HISTORY: Gastric bypass surgery. FAMILY HISTORY: Noncontributory. PERSONAL HISTORY: Never smoked. No history of alcohol abuse. ALLERGIES: TRAMADOL. HOME MEDICATIONS: Insulin glargine, aspirin 81 mg daily, Lipitor 40 mg daily, insulin 15 units subcu t.i.d., Synthroid 112 mcg daily, vitamin D, gabapentin 100 mg p.o. b.i.d., enalapril 2.5 mg p.o. daily. REVIEW OF SYSTEMS: As per HPI. Rest of 12-point review of systems reviewed negative. PHYSICAL EXAMINATION: GENERAL: Comfortable in bed, in no acute distress. VITAL SIGNS: Temperature 98.7, heart rate 60 per minute, respiratory rate 16 per minute, blood pressure 132/70, heart rate is 98% on room air. HEENT: Pallor positive. NECK: No lymphadenopathy. CHEST: Air entry present and equal bilateral. No added sound. CARDIOVASCULAR: S1 and S2 normal. No murmur. No gallop. ABDOMEN: Soft, nontender. No hepatosplenomegaly. SKIN: No petechia. No rash. SPINE: Nontender. LABORATORY DATA: White count 6.6, hemoglobin 10.3, hematocrit 32.3, platelet 240. Glucose 122, BUN 17, creatinine 0.7. Troponin is not elevated. Creatine kinase 284. Chest x-ray, no infiltrate. ASSESSMENT: 1. Chest pain. 2. Coronary artery disease status post coronary artery bypass graft. 3. Hypertension. 4. Hyperlipidemia. 5. Anemia. 6. Status post gastric bypass surgery. PLAN: Cardiology consultation Dr. Gaines requested. Cardiac enzyme will be monitored during hospitalization. Aspirin 81 mg daily, Lipitor 40 mg daily, Coreg 3.125 mg p.o. b.i.d., Neurontin 100 mg p.o. b.i.d., insulin to continue, Synthroid 112 mcg daily, Protonix 40 mg daily. Tele monitoring. Anemia likely related to gastric bypass surgery, iron absorption defect. Amberly Polanco MD : 06/11/2018 19:18:36
--- NOTE | 2018-06-11 20:27 | DS ---
Copied To: Amberly Polanco MD Attending MD: Amberly Polanco MD DATE OF DISCHARGE: 06/11/2018 DISCHARGE DIAGNOSES: 1. Retrosternal chest pain. 2. History of coronary artery disease, status post coronary artery bypass graft. 3. Hypertension. 4. Hyperlipidemia. 5. Status post gastric bypass surgery. 6. Chronic anemia likely related to iron absorption defect. HOSPITAL COURSE: Patient was admitted with retrosternal chest pain. Cardiac enzymes were normal. EKG, no new changes. Cardiology consultation with Dr. Gaines requested. Chest pain resolved during hospitalization. She is being discharged home in stable condition. She had stress test three months ago, which was normal. PHYSICAL EXAMINATION: GENERAL: Comfortable in bed, in no acute distress. VITAL SIGNS: Temperature 98.7, heart rate 80 per minute, blood pressure 126/62, . HEENT: Pallor positive. NECK: No lymphadenopathy. CHEST: Air entry present and equal bilaterally. No added sounds. CARDIOVASCULAR: S1 and S2 normal. No murmur. No gallop. ABDOMEN: Soft, nontender. No hepatosplenomegaly. EXTREMITIES: No edema. SPINE: Nontender. CONDITION ON DISCHARGE: Stable. DISPOSITION: Discharge home. DISCHARGE MEDICATIONS: Aspirin 81 mg daily, Lipitor 40 mg daily, Coreg 3.125 mg p.o. b.i.d., Neurontin 100 mg p.o. b.i.d., Levemir insulin, Synthroid 112 mcg daily, lisinopril 2. 5 mg daily, Protonix 40 mg daily. Follow up with Dr. Ennis in one week. Follow up with Dr. Chicas in one week. DIET: Regular heart-healthy diet. Time spent in preparing discharge and coordinating care is 55 minutes. Amberly Polanco MD
== END 2018-06-11 12:59 | disposition home or self-care (01) ==
LOC: ED 22:51 → ERH 06-11 01:43 → 2RNO 06-11 02:43
PROVIDERS: ADMIT Internal Medicine; ATTEND Internal Medicine
DX: R07.89 Other chest pain (principal); R10.9 Unspecified abdominal pain; R11.10 Vomiting, unspecified; I25.10 Atherosclerotic heart disease of native coronary artery without angina pectoris; Z95.1 Presence of aortocoronary bypass graft; E11.9 Type 2 diabetes mellitus without complications; I10 Essential (primary) hypertension; E78.00 Pure hypercholesterolemia, unspecified; E78.5 Hyperlipidemia, unspecified; E03.9 Hypothyroidism, unspecified; K21.9 Gastro-esophageal reflux disease without esophagitis; D50.9 Iron deficiency anemia, unspecified; Z79.82 Long term (current) use of aspirin; Z79.899 Other long term (current) drug therapy; Z87.440 Personal history of urinary (tract) infections; Z98.84 Bariatric surgery status; Z88.6 Allergy status to analgesic agent; R40.2412 Glasgow coma scale score 13-15, at arrival to emergency department
CPT/HCPCS: 71045; 80053; 82550; 82553; 82948; 83615; 83690; 84484; 85027; 85610; 85730; 93005; 99285; G0378

== ENCOUNTER 2018-11-30 23:29 | Inpatient (IN) | payer MEDICARE, OTHER ==
--- NOTE | 2018-11-30 23:59 | ED PDOC ---
Arrival/HPI - General Chief Complaint: Abdominal Pain Time Seen by Provider: 11/30/18 23:45 Historian: Patient - History of Present Illness Narrative History of Present Illness (Text): 11/30/18 23:56 73 year old female, whose past medical history includes diabetes, hyperlipidemia, CABG, pacemaker, gastric bypass, and pancreatitis, presents to the Emergency department accompanied by family complaining of upper abdominal pain, since this afternoon. Patient states she also has a slight headache. Patient denies any nausea, vomiting, diarrhea, fevers, chills, chest pain, shortness of breath, cough, back pain, neck pain, or any other complaint. Time/Duration: 4-6 hours Symptom Onset: Gradual Symptom Course: Unchanged Activities at Onset: Light Context: Home Past Medical History - Provider Review Nursing Documentation Reviewed: Yes - Infectious Disease Hx of Infectious Diseases: None - Tetanus Immunization Tetanus Immunization: Unknown - Cardiac Hx Cardiac Disorders: Yes Hx Hypertension: Yes Hx Pacemaker: Yes - Pulmonary Hx Respiratory Disorders: No - Neurological Hx Neurological Disorder: No - HEENT Hx HEENT Disorder: No - Renal Hx Renal Disorder: No - Endocrine/Metabolic Hx Endocrine Disorders: Yes Hx Diabetes Mellitus Type 2: Yes - Hematological/Oncological Hx Blood Disorders: No - Integumentary Hx Dermatological Disorder: No - Musculoskeletal/Rheumatological Hx Musculoskeletal Disorders: Yes Hx Arthritis: Yes Hx Falls: No - Gastrointestinal Hx Gastrointestinal Disorders: Yes - Genitourinary/Gynecological Hx Genitourinary Disorders: Yes - Psychiatric Hx Psychophysiologic Disorder: No Hx Substance Use: No - Surgical History Hx Gastric Bypass Surgery: Yes Hx Open Heart Surgery: Yes - Anesthesia Hx Anesthesia Reactions: No Hx Malignant Hyperthermia: No - Suicidal Assessment Feels Threatened In Home Enviroment: No Family/Social History - Physician Review Nursing Documentation Reviewed: Yes Family/Social History: No Known Family HX Smoking Status: Never Smoked Hx Alcohol Use: No Hx Substance Use: No Hx Substance Use Treatment: No Allergies/Home Meds Allergies/Adverse Reactions: Allergies tramadol Adverse Reaction (Verified 06/10/18 23:20) HEADACHE Home Medications: Home Meds Medication Instructions Recorded Confirmed Insulin Glargine,Hum.rec.anlog 35 unit SC 07/19/12 06/10/18 [Lantus] Aspirin [Aspir 81] 81 mg PO DAILY 03/09/13 06/11/18 Atorvastatin [Lipitor] 40 mg PO DAILY 07/29/15 06/11/18 Insulin Aspart, Recombinant 15 units SC TID 05/15/17 06/10/18 [Novolog] Levothyroxine Sodium 112 mcg PO DAILY 05/15/17 06/11/18 Omeprazole 40 mg PO DAILY 05/15/17 06/10/18 Ergocalciferol (Vitamin D2) 1 tab PO QWK 08/08/17 06/10/18 [Vitamin D2] Gabapentin [Neurontin] 100 mg PO BID 08/08/17 06/11/18 [place]-3 Fatty Acids/Fish Oil [Fish 1 tab PO BID 08/08/17 06/10/18 Oil 1,000 mg Capsule] Enalapril Maleate [Vasotec] 2.5 mg PO DAILY 02/09/18 06/11/18 Review of Systems - Physician Review All systems were reviewed & negative as marked: Yes - Review of Systems Constitutional: absent: Fevers, Night Sweats Respiratory: absent: SOB, Cough Cardiovascular: absent: Chest Pain Gastrointestinal: Abdominal Pain. absent: Diarrhea, Nausea, Vomiting Musculoskeletal: absent: Back Pain, Neck Pain Neurological: Headache Physical Exam Vital Signs Reviewed: Yes Vital Signs Temp Pulse Resp BP Pulse Ox 11/30/18 23:39 97.8 F 67 18 147/74 98 Temperature: Afebrile Blood Pressure: Normal Pulse: Regular Respiratory Rate: Normal Appearance: Positive for: Well-Appearing, Non-Toxic, Comfortable Pain Distress: None Mental Status: Positive for: Alert and Oriented X 3 - Systems Exam Head: Present: Atraumatic, Normocephalic Pupils: Present: PERRL Extroacular Muscles: Present: EOMI Conjunctiva: Present: Normal Mouth: Present: Moist Mucous Membranes Neck: Present: Normal Range of Motion Respiratory/Chest: Present: Clear to Auscultation, Good Air Exchange. No: Respiratory Distress, Accessory Muscle Use Cardiovascular: Present: Regular Rate and Rhythm, Normal S1, S2. No: Murmurs Abdomen: Present: Tenderness (RUQ tenderness). No: Distention, Peritoneal Signs Back: Present: Normal Inspection Upper Extremity: Present: Normal Inspection. No: Cyanosis, Edema Lower Extremity: Present: Normal Inspection. No: Edema Neurological: Present: GCS=15, CN II-XII Intact, Speech Normal Skin: Present: Warm, Dry, Normal Color. No: Rashes Psychiatric: Present: Alert, Oriented x 3, Normal Insight, Normal Concentration Medical Decision Making ED Course and Treatment: 12/01/18 00:02 Impression: 73 year old female presents with upper abdominal pain Plan: -- EKG -- CMP, Lipase -- CBC -- Chest X-ray -- US Abdomen complete -- Reassess and disposition Prior Visits: Notes and results from previous visits were reviewed. Progress Notes: 12/01/18 00:04 EKG Reviewed by me, shows: Paced rhythm @ 62 bpm RBBB, Inferior and anterior septal infarcts. 12/01/18 01:42 Ultrasound of the abdomen, complete. Indication: Right upper quadrant pain. Technique: Real-time ultrasound images were obtained. Findings: Unremarkable liver measuring 17.6 cm. No evidence of cholelithiasis. Layering sludge is identified diffusely thickened, mildly distended gallbladder. Mild diffuse thickening of the gallbladder measuring 3.2 mm. Unremarkable pancreas as visualized. Nondilated common bile duct measuring 5.7 mm. Unremarkable spleen measuring 9.1x3.4 times a 3.4 cm. Unremarkable IVC. Unremarkable right kidney measuring 10x4.6x5.4 cm. Unremarkable left kidney measuring 10.3x6.1x7.4 cm. Impression: Distended gallbladder. Layering sludge in the gallbladder. Mild diffuse thickening of the wall of the gallbladder. Developing acute inflammatory pathology is suspected. 12/01/18 01:[address] Lindsey, who requests GI consult from Dr Hein and surgical consult from Dr Almanza. 12/01/18 02:16 Chest X-ray reviewed by me, shows: No acute process 12/01/18 02:19 - Scribe Statement The provider has reviewed the documentation as recorded by the Zuleyka Chang Provider Scribe Attestation: All medical record entries made by the Scribenedina were at my direction and personally dictated by me. I have reviewed the chart and agree that the record accurately reflects my personal performance of the history, physical exam, medical decision making, and the department course for this patient. I have also personally directed, reviewed, and agree with the discharge instructions and disposition. Disposition/Present on Arrival - Present on Arrival Any Indicators Present on Arrival: No History of DVT/PE: No History of Uncontrolled Diabetes: No Urinary Catheter: No History of Decub. Ulcer: No History Surgical Site Infection Following: None - Disposition Have Diagnosis and Disposition been Completed?: Yes Diagnosis: Cholecystitis, Abdominal pain Disposition: HOSPITALIZED Disposition Time: 01:50 Patient Plan: Admission Patient Problems: Current Active Problems Problem Status Onset Abdominal pain Acute Cholecystitis Acute Condition: STABLE
[2018-12-01 00:22] LABS: MEAN CELL VOLUME 81.5 fl (80.0-105.0); MEAN CORPUSCULAR HGB CONC 30.7 g/dl (31.0-37.0); MEAN PLATELET VOLUME 9.7 fl (7.0-11.0); RED CELL DISTRIBUTION WIDTH 17.4 % (11.5-14.5)
[2018-12-01 00:49] LABS: ALB/GLOB RATIO 1.2 (1.1-1.8); ALT/SGPT 23 U/L (7-56); AST/SGOT 27 U/L (14-36); BLOOD UREA NITROGEN 10 mg/dL (7-21); CALCIUM 9.1 mg/dL (8.4-10.5); GFR NON-AFRICAN AMERICAN > 60; LIPASE 111 U/L (23-300)
[2018-12-01] MEDS ORDERED: Morphine 2 mg/ml ISec IVP STA (01:15)
[2018-12-01] MEDS ORDERED: Sodium Chloride 0.9% 1,000 ML IV STA ×2 (01:16→01:47)
[2018-12-01] MEDS ORDERED: cefTRIAXone 1 gm 1 GM/100 ML BAG IV STA (01:34)
[2018-12-01] MEDS ORDERED: metroNIDAZOLE IV 500 mg/100 ml 500 MG/100 ML BAG IVPB STA (01:35)
[2018-12-01] MEDS ORDERED: HYDROmorphone 1 mg/ml ISec IVP PRN (03:43)
[2018-12-01 04:19] VITALS: BMI 42.0
--- NOTE | 2018-12-01 05:08 | CP.PCM.CON ---
<Lui Polanco - Last Filed: 12/01/18 06:02> History of Present Illness - History of Present Illness History of Present Illness: Surgery Consult note- Dr. Almanza Reason for Consult: ABD pain/cholecystitis 73F pmhx significant for CAD s/p CABG, DM, GERD, pacemaker placement [place] to [facility] w/ sharp RUQ abdominal pain that started yesterday afternoon. It was after patient ate food. States never experienced pain like this in the past. After arrival to the ED and pain medication, RUQ pain resolved. Denies associated nausea, vomiting, fevers, chills, changes in urinary or bowel habits. In addition, denies recent foreign travel, or recent sick contacts. ED work up showed stone in the neck of the GB, subsequently patient was admitted and surgery was consulted PMH: CAD s/p CABG, HLD, DM, GERD PSH: CABG (25 years ago), Gastric Bypass (12 years ago), Pacemaker ALL: Tramadol SocialHx: denies tobacco, etoh, recreational drug use Review of Systems - Review of Systems All systems: reviewed and no additional remarkable complaints except - Constitutional Constitutional: As Per HPI Past Patient History - Infectious Disease Hx of Infectious Diseases: None - Tetanus Immunizations Tetanus Immunization: Unknown - Past Social History Smoking Status: Never Smoked - CARDIAC Hx Cardiac Disorders: Yes - PULMONARY Hx Respiratory Disorders: No - NEUROLOGICAL Hx Neurological Disorder: No - HEENT Hx HEENT Problems: No - RENAL Hx Chronic Kidney Disease: No - ENDOCRINE/METABOLIC Hx Diabetes Mellitus Type 2: Yes - HEMATOLOGICAL/ONCOLOGICAL Hx Blood Disorders: No - INTEGUMENTARY Hx Dermatological Problems: No - MUSCULOSKELETAL/RHEUMATOLOGICAL Hx Falls: No - GASTROINTESTINAL Hx Pancreatitis: Yes - GENITOURINARY/GYNECOLOGICAL Hx Genitourinary Disorders: Yes - PSYCHIATRIC Hx Substance Use: No - SURGICAL HISTORY Hx Cardiac Catheterization: Yes Hx Gastric Bypass Surgery: Yes - ANESTHESIA Hx Anesthesia Reactions: No Hx Malignant Hyperthermia: No Meds Allergies/Adverse Reactions: Allergies Allergy/AdvReac Type Severity Reaction Status Date / Time tramadol AdvReac HEADACHE Verified 06/10/18 23:20 - Medications Medications: Current Medications Hydromorphone HCl (Dilaudid) 1 mg IVP Q4H PRN PRN Reason: Pain, severe (8-10) Sodium Chloride (Sodium Chloride 0.9%) 1,000 mls @ 100 mls/hr IV .Q10H STA Stop: 12/01/18 11:46 Last Admin: 12/01/18 03:29 Dose: 100 mls/hr Metronidazole (Flagyl) 500 mg in 100 mls @ 100 mls/hr IVPB Q8 KULWANT; Protocol Physical Exam - Constitutional Appears: Non-toxic, In Acute Distress - Head Exam Head Exam: ATRAUMATIC - Eye Exam Eye Exam: EOMI. absent: Scleral icterus - ENT Exam ENT Exam: Mucous Membranes Moist - Respiratory Exam Respiratory Exam: NORMAL BREATHING PATTERN. absent: Accessory Muscle Use, Respiratory Distress - Cardiovascular Exam Cardiovascular Exam: REGULAR RHYTHM. absent: Bradycardia, Tachycardia - GI/Abdominal Exam GI & Abdominal Exam: Soft, Tenderness (tender to deep palpation in RUQ. + Mu rphy's sign) Additional comments: old laparoscopic incisions well healed. slighter larger Right subcostal incision well healed. - Extremities Exam Extremities exam: Negative for: calf tenderness - Neurological Exam Neurological exam: Alert, Oriented x3 - Skin Skin Exam: Intact, Warm Results - Vital Signs Recent Vital Signs: Last Vital Signs Temp 97.8 F 12/01/18 03:58 Pulse 66 12/01/18 03:58 Resp 18 12/01/18 03:58 BP 137/66 12/01/18 03:58 Pulse Ox 100 12/01/18 03:58 - Labs Result Diagrams: 12/01/18 00:12 12/01/18 00:12 Labs: Laboratory Results - last 24 hr 12/01/18 12/01/18 00:12 00:12 WBC 7.0 RBC 4.00 Hgb 10.0 L Hct 32.6 L MCV 81.5 MCH 25.0 MCHC 30.7 L RDW 17.4 H Plt Count 247 MPV 9.7 Sodium 139 Potassium 4.9 Chloride 106 Carbon Dioxide 28 Anion Gap 10 BUN 10 Creatinine 0.7 Est GFR ( Amer) > 60 Est GFR (Non-Af Amer) > 60 Random Glucose 203 H Calcium 9.1 Total Bilirubin 0.2 AST 27 ALT 23 Alkaline Phosphatase 75 Total Protein 7.3 Albumin 4.0 Globulin 3.3 Albumin/Globulin Ratio 1.2 Lipase 111 Assessment & Plan - Assessment and Plan (Free Text) Assessment: 73F w/ extensive cardiac hx; admitted for acute cholecystitis vs symptomatic cholelithiasis US: Large stone in neck of GB Last ECHO performed on 01/2018- EF 60-65% Plan: - NPO - IVF/ABx - cardiac risk stratification/clearance prior to surgical intervention - pain control and Analgesia PRN - serial abd exams - further recs per Dr. Almanza surgical attending PGY2 <Pietro Almanza - Last Filed: 12/02/18 11:16> Meds - Medications Medications: Current Medications Carvedilol (Coreg) 3.125 mg PO BID KULWANT Hydralazine HCl (Apresoline) 10 mg IVP Q6 PRN PRN Reason: for sbp>160 Hydromorphone HCl (Dilaudid) 1 mg IVP Q4H PRN PRN Reason: Pain, severe (8-10) Lactated Ringer's (Lactated Ringer's) 1,000 mls @ 100 mls/hr IV .Q10H KULWANT Metronidazole (Flagyl) 500 mg in 100 mls @ 100 mls/hr IVPB Q8 KULWANT; Protocol Last Admin: 12/02/18 10:09 Dose: Not Given Levofloxacin/Dextrose (Levaquin 500mg) 500 mg in 100 mls @ 100 mls/hr IVPB DAILY [facility] [place]; Protocol Last Admin: 12/02/18 09:47 Dose: 100 mls/hr Insulin Human Lispro (Humalog Med) 0 units SC ACHS [facility] [place]; Protocol Last Admin: 12/02/18 09:05 Dose: Not Given Levothyroxine Sodium (Synthroid) 112 mcg PO DAILY [facility] [place] Ondansetron HCl (Zofran Inj) 4 mg IVP Q4H PRN PRN Reason: Nausea/Vomiting Pantoprazole Sodium (Protonix Inj) 40 mg IVP DAILY [facility] [place] Last Admin: 12/02/18 09:49 Dose: 40 mg Results - Vital Signs Recent Vital Signs: Last Vital Signs Temp 97.6 F 12/02/18 06:00 Pulse 66 12/02/18 06:00 Resp 18 12/02/18 06:00 BP 146/74 12/02/18 06:00 Pulse Ox 96 12/02/18 06:00 - Labs Result Diagrams: 12/01/18 00:12 12/01/18 00:12 Labs: Laboratory Results - last 24 hr 12/01/18 12/01/18 12/01/18 11:29 16:35 21:18 POC Glucose (mg/dL) 122 H 85 86 12/02/18 12/02/18 06:37 10:53 POC Glucose (mg/dL) 84 109 Assessment & Plan - Assessment and Plan (Free Text) Plan: Dx Chr cholecystitis(Sludge-NO Stones-rec pencreatitis) Pt needs NPO/IV AB/CT Pancreatic protocol/CV Clearance ? Surgery Tuesday This consult done under my direct supervision Leela Almanza MD FACS
--- NOTE | 2018-12-01 09:46 | RAD ---
Date of service: 12/01/2018 HISTORY: abdominal pain COMPARISON: Comparison chest 06/11/2018 FINDINGS: LUNGS: Mild pulmonary venous congestive changes with suspected small bilateral effusions. Questionable atelectasis and/or developing infiltrate right medial lower lung field PLEURA: As above.. No pneumothorax apparent. CARDIOVASCULAR: Mild aortic atherosclerotic calcification present. Heart size remains mildly enlarged. Sternotomy wires and CABG clips again noted.. No change bipolar pacemaker/defibrillator OSSEOUS STRUCTURES: No significant abnormalities. VISUALIZED UPPER ABDOMEN: Normal. OTHER FINDINGS: None. IMPRESSION: Mild pulmonary venous congestive changes with suspected small bilateral effusions. Questionable atelectasis or developing infiltrate right medial lower lung field
--- NOTE | 2018-12-01 10:07 | US ---
Date of service: 12/01/2018 HISTORY: Upper abdominal pain COMPARISON: Comparison made with prior abdominal ultrasound and CT scan of the abdomen pelvis both dated 05/16/2017. TECHNIQUE: Sonographic evaluation of the abdomen. FINDINGS: LIVER: Liver is upper limits of normal measuring nearly 18 cm in CC dimension. Liver demonstrates smooth contour and normal echogenicity . No mass. No intrahepatic bile duct dilatation. GALLBLADDER: Unremarkable. No gallstones however intraluminal gallbladder sludge felt to be present. No evidence of pericholecystic fluid collections or sonographic Pavon sign. COMMON BILE DUCT: Measures 5.7 mm. No stones. No dilatation. PANCREAS: Unremarkable as visualized. No mass. No ductal dilatation. RIGHT KIDNEY: Measures 10.0 x 4.6 x 5.4cm. Normal echogenicity. No calculus, mass, or hydronephrosis. LEFT KIDNEY: Measures 10.9 x 6.1 x 7.4cm. Normal echogenicity. No calculus, mass, or hydronephrosis. SPLEEN: Normal in size (approximately 9.1 cm in greatest dimension) and contour. No mass. AORTA: No aneurysmal dilatation. IVC: Unremarkable. OTHER FINDINGS: None. IMPRESSION: Liver is upper limits of normal in size.. Intraluminal gallbladder sludge present.
--- NOTE | 2018-12-01 11:26 | CARD ---
APPROVED REPORT Date of service: 11/30/2018 EKG Measurement Heart [id number] VT 208P [id number] <Conclusion> Electronic atrial pacemaker.
--- NOTE | 2018-12-01 12:11 | CP.PCM.CON ---
<Mat Martinez - Last Filed: 12/01/18 16:19> History of Present Illness - History of Present Illness History of Present Illness: GI Consult Note for Dr. Hein Reason for Consultation: Cholecystitis Patient is a 73 year old female, French speaker, with a PMH of insulin dependent DM, HLD, CABG, pacemaker, hypothyroid, iron deficient anemia, and GERD who presented to [facility] on for upper abdominal pain that started after eating fried chicken. Patient rated the pain a 10/10, it's described as sharp and constant. Patient took 1 tablet ibuprofen without symptom relief. She admits to having this pain in the past, but never as severe. Patient was admitted for RUQ and possible cholecystitis. Currently the patient denies any nausea, vomiting, fever, chills, SOB, chestpain, and dysuria. Colonoscopy (07/2017): performed due Hx of colon polyps. Found diverticuli, internal hemorrhoids. Recommendation was to repeat in 2021. Endoscopy (unknown): performed in [facility]. Patient states the results where normal. PMH: As stated above PSH: CABG (2005), gastric bypass (2012) Allergies: tramadol (headache) Social: Former smoker, admits to smoking 3-4 cigarettes daily for about 5 years. Quit over 20 years ago. Social drinker in the past. Denies illicit drugs. Retired. Diet typical is a low in fat. Family: Mom @ 69 due to pancreatic CA, dad was murdered. Patient is 1 of 10 children. Brother @ 40 due to pancreatitis, Sister @ 33 due to lymphatic CA, brother alive prostate CA. Home Meds: Aspart Insulin, Glargine Insulin, Atorvastatin, Levothyroxine, omepr azole, Vit. D, Gabapentin, [place] -3, enalapril. Review of Systems - Review of Systems All systems: reviewed and no additional remarkable complaints except (12 point ROS reviewed and is negative other than what is stated in HPI.) Past Patient History - Infectious Disease Hx of Infectious Diseases: None - Tetanus Immunizations Tetanus Immunization: Unknown - Past Social History Smoking Status: Never Smoked - CARDIAC Hx Cardiac Disorders: Yes - PULMONARY Hx Respiratory Disorders: No - NEUROLOGICAL Hx Neurological Disorder: No - HEENT Hx HEENT Problems: No - RENAL Hx Chronic Kidney Disease: No - ENDOCRINE/METABOLIC Hx Diabetes Mellitus Type 2: Yes - HEMATOLOGICAL/ONCOLOGICAL Hx Blood Disorders: No - INTEGUMENTARY Hx Dermatological Problems: No - MUSCULOSKELETAL/RHEUMATOLOGICAL Hx Falls: No - GASTROINTESTINAL Hx Pancreatitis: Yes - GENITOURINARY/GYNECOLOGICAL Hx Genitourinary Disorders: Yes - PSYCHIATRIC Hx Substance Use: No - SURGICAL HISTORY Hx Cardiac Catheterization: Yes Hx Gastric Bypass Surgery: Yes - ANESTHESIA Hx Anesthesia Reactions: No Hx Malignant Hyperthermia: No Meds Allergies/Adverse Reactions: Allergies Allergy/AdvReac Type Severity Reaction Status Date / Time tramadol AdvReac HEADACHE Verified 06/10/18 23:20 - Medications Medications: Current Medications Hydromorphone HCl (Dilaudid) 1 mg IVP Q4H PRN PRN Reason: Pain, severe (8-10) Metronidazole (Flagyl) 500 mg in 100 mls @ 100 mls/hr IVPB Q8 [facility]; Protocol Lactated Ringer's (Lactated Ringer's) 1,000 mls @ 100 mls/hr IV .Q10H [facility] Ondansetron HCl (Zofran Inj) 4 mg IVP Q4H PRN PRN Reason: Nausea/Vomiting Physical Exam - Constitutional Appears: No Acute Distress - Head Exam Head Exam: NORMAL INSPECTION - Eye Exam Eye Exam: Normal appearance Pupil Exam: NORMAL ACCOMODATION - ENT Exam ENT Exam: Mucous Membranes Moist - Neck Exam Neck exam: Positive for: Normal Inspection - Respiratory Exam Respiratory Exam: Clear to Auscultation Bilateral. absent: Rales, Rhonchi, Wheezes - Cardiovascular Exam Cardiovascular Exam: RRR, +S1, +S2. absent: Diastolic murmur, Gallop, Rubs, Systolic Murmur - GI/Abdominal Exam GI & Abdominal Exam: Soft, Tenderness (RUQ). absent: Distended, Guarding, Rebound Additional comments: Positive Pavon's sign - Extremities Exam Extremities exam: Positive for: normal inspection - Back Exam Back exam: NORMAL INSPECTION - Neurological Exam Neurological exam: Alert, Oriented x3 - Skin Skin Exam: Normal Color, Warm Results - Vital Signs Recent Vital Signs: Last Vital Signs Temp 98 F 12/01/18 08:28 Pulse 50 L 12/01/18 08:28 Resp 18 12/01/18 08:28 BP 124/57 L 12/01/18 08:28 Pulse Ox 97 12/01/18 08:28 - Labs Result Diagrams: 12/01/18 00:12 12/01/18 00:12 Labs: Laboratory Results - last 24 hr 12/01/18 12/01/18 12/01/18 00:12 00:12 05:57 WBC 7.0 RBC 4.00 Hgb 10.0 L Hct 32.6 L MCV 81.5 MCH 25.0 MCHC 30.7 L RDW 17.4 H Plt Count 247 MPV 9.7 Sodium 139 Potassium 4.9 Chloride 106 Carbon Dioxide 28 Anion Gap 10 BUN 10 Creatinine 0.7 Est GFR ( Amer) > 60 Est GFR (Non-Af Amer) > 60 POC Glucose (mg/dL) 164 H Random Glucose 203 H Calcium 9.1 Total Bilirubin 0.2 AST 27 ALT 23 Alkaline Phosphatase 75 Total Protein 7.3 Albumin 4.0 Globulin 3.3 Albumin/Globulin Ratio 1.2 Lipase 111 12/01/18 11:29 WBC RBC Hgb Hct MCV MCH MCHC RDW Plt Count MPV Sodium Potassium Chloride Carbon Dioxide Anion Gap BUN Creatinine Est GFR ( Amer) Est GFR (Non-Af Amer) POC Glucose (mg/dL) 122 H Random Glucose Calcium Total Bilirubin AST ALT Alkaline Phosphatase Total Protein Albumin Globulin Albumin/Globulin Ratio Lipase Assessment & Plan - Assessment and Plan (Free Text) Assessment: 73 yo F with PMH of insulin dependent DM, HLD, CABG, pacemaker, hypothyroid, iron deficient anemia, and GERD presents to [facility] for abdominal pain concerning for cholecystitis. Abdominal US reviewed intraluminal gallbladder sludge, but no pericholecystic fluid and no CBD dilation. 1. Abdominal Pain - Biliary colic vs cholecystitis 2. H/o Iron deficiency anemia Plan: - HIDA and Pancreatic protocol CT ordered - PPI - Cont IV abx - Surgery following Patient discussed in detail with Dr. Hein. Forrest Martinez, DO PGY2 <Patrick Hein V - Last Filed: 12/01/18 23:29> Meds - Medications Medications: Current Medications Carvedilol (Coreg) 3.125 mg PO BID [facility] Hydralazine HCl (Apresoline) 10 mg IVP Q6 PRN PRN Reason: for sbp>160 Hydromorphone HCl (Dilaudid) 1 mg IVP Q4H PRN PRN Reason: Pain, severe (8-10) Metronidazole (Flagyl) 500 mg in 100 mls @ 100 mls/hr IVPB Q8 [facility]; Protocol Last Admin: 12/01/18 22:54 Dose: 100 mls/hr Lactated Ringer's (Lactated Ringer's) 1,000 mls @ 100 mls/hr IV .Q10H [facility] Insulin Human Lispro (Humalog Med) 0 units SC ACHS [facility]; Protocol Last Admin: 12/01/18 16:42 Dose: Not Given Levothyroxine Sodium (Synthroid) 112 mcg PO DAILY [facility] Ondansetron HCl (Zofran Inj) 4 mg IVP Q4H PRN PRN Reason: Nausea/Vomiting Pantoprazole Sodium (Protonix Inj) 40 mg IVP DAILY [facility] Results - Vital Signs Recent Vital Signs: Last Vital Signs Temp 98 F 12/01/18 21:33 Pulse 60 12/01/18 21:33 Resp 18 12/01/18 21:33 BP 137/70 12/01/18 21:33 Pulse Ox 96 12/01/18 21:33 - Labs Result Diagrams: 12/01/18 00:12 12/01/18 00:12 Labs: Laboratory Results - last 24 hr 12/01/18 12/01/18 12/01/18 00:12 00:12 05:57 WBC 7.0 RBC 4.00 Hgb 10.0 L Hct 32.6 L MCV 81.5 MCH 25.0 MCHC 30.7 L RDW 17.4 H Plt Count 247 MPV 9.7 Sodium 139 Potassium 4.9 Chloride 106 Carbon Dioxide 28 Anion Gap 10 BUN 10 Creatinine 0.7 Est GFR ( Amer) > 60 Est GFR (Non-Af Amer) > 60 POC Glucose (mg/dL) 164 H Random Glucose 203 H Calcium 9.1 Total Bilirubin 0.2 AST 27 ALT 23 Alkaline Phosphatase 75 Total Protein 7.3 Albumin 4.0 Globulin 3.3 Albumin/Globulin Ratio 1.2 Lipase 111 12/01/18 12/01/18 12/01/18 11:29 16:35 21:18 WBC RBC Hgb Hct MCV MCH MCHC RDW Plt Count MPV Sodium Potassium Chloride Carbon Dioxide Anion Gap BUN Creatinine Est GFR ( Amer) Est GFR (Non-Af Amer) POC Glucose (mg/dL) 122 H 85 86 Random Glucose Calcium Total Bilirubin AST ALT Alkaline Phosphatase Total Protein Albumin Globulin Albumin/Globulin Ratio Lipase Attending/Attestation - Attestation I have personally seen and examined this patient.: Yes I have fully participated in the care of the patient.: Yes I have reviewed all pertinent clinical information: Yes Notes (Text): This is an addendum to GI consult report dictated by the Terminal Superintendent. The patient was seen and evaluated earlier. Medical records, lab studies, imagings were reviewed. Last 24 hours events reviewed. Agreed with the above treatment plan as outlined in Terminal Superintendent 's notes with the addition of the following discussed with the patient's family who were at bedside Patient does have biliary sludge in the gallbladder, CBD was normal No significant thickening of the gallbladder The differential diagnosis in this patient should include anastomotic ulcer patient has a history of gastric bypass continue the PPI patient may benefit from endoscopy evaluation,after hida scan and also CT scan to further evaluate 12/01/18 23:25
[2018-12-01] MEDS: metroNIDAZOLE IV 500 mg/100 ml 500 MG/100 ML BAG IVPB SCH ×2 (13:05→22:54)
[2018-12-01] MEDS ORDERED: Barium Sulfate Susp 2.1% w/v, 2.0% w/w 450 mL Bottle PO ONE ×2 (16:19→23:48)
[2018-12-01] MEDS: Insulin Lispro (humaLOG) MEDIUM Coverage SC SCH (16:42)
--- NOTE | 2018-12-01 18:00 | CP.PCM.PCO ---
Physician Communication Note - Physician Communication Note Physician Communication Note: Anmol GI/CV Consult/Needs Lap Priscila (CT CD Pancrprotocol)
--- NOTE | 2018-12-01 18:48 | NM ---
Date of service: 12/01/2018 PROCEDURE: Nuclear Medicine Hepatobiliary Scan HISTORY: CHOLECYSTITIS COMPARISON: November 30, 2018 abdominal ultrasound TECHNIQUE: 6.2 mCi of technetium 99m Mebrofenin was administered intravenously. Planar images of the abdomen were obtained at 5 min intervals to 60 mins. Delayed images were also obtained. FINDINGS: LIVER: Timely and homogenous uptake. COMMON BILE DUCT: identified at 15 mins. GALLBLADDER: Not identified at 04:00 hours. SMALL BOWEL: Identified at 30 mins. IMPRESSION: Positive/abnormal hepatobiliary scan. Nonvisualization of the gallbladder at 04:00 hours, presumptive evidence for acute cholecystitis.
--- NOTE | 2018-12-01 23:04 | HP ---
DATE OF EXAM: 12/01/2018 HISTORY OF PRESENT ILLNESS: The patient is a 73-year-old known to me from previous admission, came to emergency room because of increasing right upper quadrant pain started yesterday. She was feeling nauseous, was throwing up, so she came to emergency room for further evaluation. PAST MEDICAL HISTORY: She has significant past medical history of: 1. Hypertension. 2. History of gastric bypass. 3. Open heart surgery. 4. Gastritis. 5. Dwa-ycgkovc-tpfgikyqy diabetes. 6. Status post gastric bypass, lost 60 pounds. ALLERGIES: SHE IS ALLERGIC TO TRAMADOL. MEDICATIONS AT HOME: She is on omeprazole 40 mg daily, levothyroxine 112 mcg daily, she is on Novolog, Lantus, gabapentin, enalapril, Coreg, Lipitor, and aspirin. SOCIAL HISTORY: The patient is not smoking, drinking, or alcohol use. REVIEW OF SYSTEMS: Right upper quadrant discomfort, pain seems to be better since she came in. PHYSICAL EXAMINATION: GENERAL: She is awake, alert, oriented, and communicative. VITAL SIGNS: She is afebrile, pulse 50, respirations 18, and blood pressure . LUNGS: Bilateral fair airflow. No rhonchi or crackle. HEART: S1 and S2 audible. ABDOMEN: Soft. Right upper quadrant epigastric palpable discomfort with some guarding. NEUROLOGIC: She is awake, alert, oriented, and communicative. LABORATORY DATA: WBC 7, hemoglobin 10, hematocrit 32.6, and platelet 247. Chemistry; sodium 139, potassium 4.9, chloride 106, CO2 of 28, BUN 10, creatinine 0.7, and blood sugar 122. She has abdominal sonogram done that shows intraluminal sludge present. ASSESSMENT: 1. Right upper quadrant discomfort. 2. Cholelithiasis. 3. Hypertension. 4. Coronary artery disease. 5. cholecystitis. 6. Peptic ulcer disease. 7. Hyperlipidemia. PLAN: We will keep her n.p.o., give her IV fluids and analgesic as needed. I will order for HIDA scan, awaiting surgical and GI input, and followup the patient in a.m. Frances Mccartney MD [facility] # [id number]
--- NOTE | 2018-12-02 04:00 | CON ---
DATE: 12/01/2018 REASON FOR CONSULTATION: Follow up, history of coronary artery disease, history of pacemaker, history of CABG, admitted with abdominal pain, possible acute cholecystitis that may require surgical intervention, preop evaluation, and risk stratification. BRIEF CLINICAL HISTORY: This is a 73-year-old female with past medical history significant for coronary artery disease, anomalous origin of RCA, history of pacemaker, sick sinus syndrome, status post pacemaker generator change recently, and came in with abdominal pain. Working diagnosis is possible acute cholecystitis, may require surgical intervention, so Cardiology consult is called for preop evaluation and risk stratification. The patient denies any chest pain. Denies any shortness of breath. Denies any palpitation. Family is at the bedside. PAST MEDICAL HISTORY: Significant for coronary artery disease, status post one-vessel coronary artery bypass secondary to anomalous origin of the right coronary artery and high-grade stenosis of RCA, history of pacemaker, and history of recently pacemaker generator change 03/12/2013. PREVIOUS CARDIAC WORKUP FOLLOWS: The patient had a stress test recently 02/08/2018 that showed probably normal myocardial perfusion study, fixed defect noted, no reversible ischemia, ejection fraction of 60%. When compared from the previous study dated 07/20/2015, there is no significant change. The patient had echocardiography 02/08/2018 that showed ejection fraction 60% to 65%, mild mitral regurgitation, mild tricuspid regurgitation, and RV systolic pressure of 33. SOCIAL HISTORY: Denies smoking. Denies any history of alcohol abuse. CURRENT MEDICATIONS: The patient is taking omeprazole, levothyroxine, insulin, Neurontin, Coreg, atorvastatin, and aspirin. PAST SURGICAL HISTORY: Significant for open heart surgery 8 to 9 years ago one vessel because of high-grade RCA stenosis anomalous origin, history of pacemaker generator change, and history of gastric bypass 4 to 5 years ago for weight reduction. REVIEW OF SYSTEMS: As per HPI. PHYSICAL EXAMINATION: VITAL SIGNS: As follows; height of the patient 5 feet, weight of the patient 215 pounds, and body mass index 42 kg/m2. Temperature afebrile, heart rate 80, and blood pressure 137/67. HEENT: PERRLA. Extraocular muscles are intact. NECK: Supple. No carotid bruits or thyromegaly. CHEST: Clear to auscultation. HEART: S1 and S2 regular. ABDOMEN: Soft. EXTREMITIES: Clubbing and cyanosis negative. LABORATORY DATA: Blood workup as follows. WBC 7, hemoglobin 10, hematocrit 32.6, and platelet count 247. Chemistry shows sodium 139, potassium 3.9, chloride 106, carbon dioxide 28, anion gap of 10, BUN 10, and creatinine 0.10. EKG shows normal sinus, A-paced, V-sensed rhythm. HIDA scan pending. Ultrasound of the abdomen showed sludge and possible acute cholecystitis. IMPRESSION AND PLAN: A 73-year-old female with a past medical history significant for morbid obesity, diabetes, hypertension, hyperlipidemia, coronary artery disease with one-vessel bypass, history of pacemaker, status post pacemaker generator change 2012, history of recent stress test 01/2018 essentially normal, echocardiogram shows normal left ventricular function dated 02/08/2018, admitted with acute cholecystitis, possibly may require . Cardiology consult called for preoperative evaluation. No evidence of acute ischemia. No evidence of arrhythmia. No evidence of congestive heart failure. The patient is cleared to go for Surgery with moderate risk because of underlying comorbidity, but no absolute contraindication. Continue perioperative beta-marquise. We will follow with you. We will notify Dr. Almanza and Dr. Mccartney. Thank you Dr. Mccartney/Dr. Almanza for providing us the opportunity in taking care of the patient, [place]. Nikole Ennis MD
[2018-12-02] MEDS: Insulin Lispro (humaLOG) MEDIUM Coverage SC SCH ×4 (05:35→16:30)
[2018-12-02] MEDS: metroNIDAZOLE IV 500 mg/100 ml 500 MG/100 ML BAG IVPB SCH ×5 (05:53→22:39)
--- NOTE | 2018-12-02 07:50 | CP.PCM.PN ---
Subjective - Date & Time of Evaluation Date of Evaluation: 12/02/18 Time of Evaluation: 07:46 - Subjective Subjective: Surgery Pt seen and examined. No acute events. c/o abd pain. HIDA shows non -visualized GB. Denies fever, nausea. Planned for CT pancreatic protocol . Objective - Vital Signs/Intake and Output Vital Signs (last 24 hours): Temp Pulse Resp BP Pulse Ox 98 F 60 18 137/70 96 12/01/18 21:33 12/01/18 21:33 12/01/18 21:33 12/01/18 21:33 12/01/18 21:33 Intake and Output: 12/02/18 12/02/18 06:59 18:59 Intake Total 180 Balance 180 - Medications Medications: Current Medications Carvedilol (Coreg) 3.125 mg PO BID [facility] Hydralazine HCl (Apresoline) 10 mg IVP Q6 PRN PRN Reason: for sbp>160 Hydromorphone HCl (Dilaudid) 1 mg IVP Q4H PRN PRN Reason: Pain, severe (8-10) Lactated Ringer's (Lactated Ringer's) 1,000 mls @ 100 mls/hr IV .Q10H [facility] Insulin Human Lispro (Humalog Med) 0 units SC ACHS [facility]; Protocol Last Admin: 12/02/18 05:35 Dose: Not Given Levothyroxine Sodium (Synthroid) 112 mcg PO DAILY [facility] Ondansetron HCl (Zofran Inj) 4 mg IVP Q4H PRN PRN Reason: Nausea/Vomiting Pantoprazole Sodium (Protonix Inj) 40 mg IVP DAILY [facility] - Labs Labs: 12/01/18 00:12 12/01/18 00:12 - Constitutional Appears: No Acute Distress - Head Exam Head Exam: ATRAUMATIC, NORMAL INSPECTION, NORMOCEPHALIC - Eye Exam Eye Exam: EOMI, Normal appearance, PERRL Pupil Exam: NORMAL ACCOMODATION, PERRL - ENT Exam ENT Exam: Mucous Membranes Moist, Normal Exam - Neck Exam Neck Exam: Normal Inspection - Respiratory Exam Respiratory Exam: NORMAL BREATHING PATTERN - Cardiovascular Exam Cardiovascular Exam: REGULAR RHYTHM, +S1, +S2. absent: Murmur - GI/Abdominal Exam GI & Abdominal Exam: Soft, Tenderness. absent: Distended, Hernia, Rebound - Extremities Exam Extremities Exam: Full ROM - Neurological Exam Neurological Exam: Alert, Awake, CN II-XII Intact, Normal Gait, Oriented x3 - Psychiatric Exam Psychiatric exam: Normal Affect, Normal Mood - Skin Skin Exam: Dry, Intact, Normal Color, Warm Assessment and Plan - Assessment and Plan (Free Text) Assessment: 73F w/ extensive cardiac hx; admitted for acute cholecystitis vs symptomatic cholelithiasis US: Large stone in neck of GB Last ECHO performed on 01/2018- EF 60-65% Plan: - f/u CT pancreatic - WIll plan for OR lap connie - NPO - IVF - cardiac risk stratification: forestry farm laborer cleared for surgery - PPI - pain control and Analgesia PRN - Nausea med - serial abd exams - further recs per Dr. Almanza surgical attending
[2018-12-02] MEDS: levoFLOXacin 500 mg in D5W 500 MG/100 ML BAG IVPB SCH (09:47)
[2018-12-02] MEDS: Levothyroxine 112 MCG TAB PO SCH (15:23)
--- NOTE | 2018-12-02 15:34 | CP.PCM.PN ---
<Gerson Núñez - Last Filed: 12/02/18 15:35> Subjective - Date & Time of Evaluation Date of Evaluation: 12/02/18 Time of Evaluation: 09:44 - Subjective Subjective: PGY-4 GI Fellow Prog Note Pt sitting up in bed when seen this AM. States abd pain controlled as recently had pain medication. Has been NPO for radiology studies. 5 point ROS negative other than stated above Objective - Vital Signs/Intake and Output Vital Signs (last 24 hours): Temp Pulse Resp BP Pulse Ox 97.8 F 62 16 125/59 L 96 12/02/18 14:41 12/02/18 14:41 12/02/18 14:41 12/02/18 14:41 12/02/18 14:41 Intake and Output: 12/02/18 12/02/18 06:59 18:59 Intake Total 180 0 Balance 180 0 - Medications Medications: Current Medications Carvedilol (Coreg) 3.125 mg PO BID [facility] Last Admin: 12/02/18 15:24 Dose: Not Given Hydralazine HCl (Apresoline) 10 mg IVP Q6 PRN PRN Reason: for sbp>160 Hydromorphone HCl (Dilaudid) 1 mg IVP Q4H PRN PRN Reason: Pain, severe (8-10) Lactated Ringer's (Lactated Ringer's) 1,000 mls @ 100 mls/hr IV .Q10H [facility] Metronidazole (Flagyl) 500 mg in 100 mls @ 100 mls/hr IVPB Q8 [facility]; Protocol Last Admin: 12/02/18 10:09 Dose: Not Given Levofloxacin/Dextrose (Levaquin 500mg) 500 mg in 100 mls @ 100 mls/hr IVPB DAILY [facility]; Protocol Last Admin: 12/02/18 09:47 Dose: 100 mls/hr Insulin Human Lispro (Humalog Med) 0 units SC ACHS [facility]; Protocol Last Admin: 12/02/18 12:59 Dose: Not Given Levothyroxine Sodium (Synthroid) 112 mcg PO DAILY [facility] Last Admin: 12/02/18 15:23 Dose: 112 mcg Ondansetron HCl (Zofran Inj) 4 mg IVP Q4H PRN PRN Reason: Nausea/Vomiting Pantoprazole Sodium (Protonix Inj) 40 mg IVP DAILY [facility] Last Admin: 12/02/18 09:49 Dose: 40 mg - Labs Labs: 12/01/18 00:12 12/01/18 00:12 - Constitutional Appears: Well, No Acute Distress - Head Exam Head Exam: ATRAUMATIC, NORMAL INSPECTION - Eye Exam Eye Exam: EOMI. absent: Scleral icterus - ENT Exam ENT Exam: Mucous Membranes Dry. absent: Mucous Membranes Moist - Respiratory Exam Respiratory Exam: NORMAL BREATHING PATTERN. absent: Accessory Muscle Use, Respiratory Distress - GI/Abdominal Exam GI & Abdominal Exam: Distended (mildly), Soft, Tenderness (RUQ w/o guarding), Normal Bowel Sounds. absent: Bruit, Firm, Guarding, Rigid, Mass, Organomegaly Assessment and Plan - Assessment and Plan (Free Text) Assessment: 73 yo F with PMH of insulin dependent DM, HLD, CABG, pacemaker, hypothyroid, iron deficient anemia, and GERD presents to [facility] for abdominal pain concerning for cholecystitis. 1. Abdominal Pain - Biliary colic vs cholecystitis. Abdominal US reviewed intraluminal gallbladder sludge, but no pericholecystic fluid and no CBD dilation. + HIDA with delayed phase. 2. H/o Iron deficiency anemia Plan: - F/u Pancreatic protocol CT - PPI - Cont IV abx - Surgery following, plan for OR on early this week - Diet per Surgery/Primary Patient discussed in detail with Dr. Hein. <Patrick Hein V - Last Filed: 12/02/18 23:38> Objective - Vital Signs/Intake and Output Vital Signs (last 24 hours): Temp Pulse Resp BP Pulse Ox 98.3 F 60 20 136/76 98 12/02/18 22:00 12/02/18 22:00 12/02/18 22:00 12/02/18 22:00 12/02/18 22:00 Intake and Output: 12/02/18 12/03/18 18:59 06:59 Intake Total 0 Balance 0 - Medications Medications: Current Medications Carvedilol (Coreg) 3.125 mg PO BID [facility] Last Admin: 12/02/18 17:43 Dose: 3.125 mg Hydralazine HCl (Apresoline) 10 mg IVP Q6 PRN PRN Reason: for sbp>160 Hydromorphone HCl (Dilaudid) 1 mg IVP Q4H PRN PRN Reason: Pain, severe (8-10) Lactated Ringer's (Lactated Ringer's) 1,000 mls @ 100 mls/hr IV .Q10H [facility] Last Admin: 12/02/18 17:41 Dose: 100 mls/hr Metronidazole (Flagyl) 500 mg in 100 mls @ 100 mls/hr IVPB Q8 [facility]; Protocol Last Admin: 12/02/18 22:39 Dose: 100 mls/hr Levofloxacin/Dextrose (Levaquin 500mg) 500 mg in 100 mls @ 100 mls/hr IVPB DAILY [facility]; Protocol Last Admin: 12/02/18 09:47 Dose: 100 mls/hr Insulin Human Lispro (Humalog Med) 0 units SC ACHS [facility]; Protocol Last Admin: 12/02/18 16:30 Dose: Not Given Levothyroxine Sodium (Synthroid) 112 mcg PO DAILY [facility] Last Admin: 12/02/18 15:23 Dose: 112 mcg Ondansetron HCl (Zofran Inj) 4 mg IVP Q4H PRN PRN Reason: Nausea/Vomiting Pantoprazole Sodium (Protonix Inj) 40 mg IVP DAILY [facility] Last Admin: 12/02/18 09:49 Dose: 40 mg - Labs Labs: 12/01/18 00:12 12/01/18 00:12 Attending/Attestation - Attestation I have personally seen and examined this patient.: Yes I have fully participated in the care of the patient.: Yes I have reviewed all pertinent clinical information, including history, physical exam and plan: Yes Notes (Text): This is an addendum to GI progress report dictated by the GI Fellow. The patient was seen and examined earlier. Medical records, lab studies, imagings were reviewed. Last 24 hours events reviewed. Agreed with the above treatment plan as outlined in GI Fellow 's notes with the addition of the following 12/02/18 23:37
--- NOTE | 2018-12-02 15:51 | CT ---
Date of service: 12/02/2018 PROCEDURE: CT Abdomen and Pelvis with contrast HISTORY: Rule out biliary disease. Pacemaker present COMPARISON: No prior study available for comparison however correlation made with HIDA scan and abdominal ultrasound both dated 12/01/2018. TECHNIQUE: Contiguous helical/transaxial sections of the abdomen and pelvis implying pancreatic protocol following oral and intravenous injection of approximately 147 cc Omnipaque 350 contrast material. Radiation dose: Total exam DLP = 2181.81 mGy-cm. This CT exam was performed using one or more of the following dose reduction techniques: Automated exposure control, adjustment of the mA and/or kV according to patient size, and/or use of iterative reconstruction technique. FINDINGS: LOWER THORAX: There are some minor scarring changes seen in the right middle lobe, right lung base and to a lesser degree probably in the lingular region. There is a small to medium size hiatal hernia with wall thickening of the distal esophagus likely due to protrusion gastric mucosa. Possibility of esophagitis not excluded. LIVER: Liver is normal in size measuring nearly 18 cm in CC dimension.. There is a approximately 3 mm low-attenuation focus superior aspect right lobe liver near the dome that is too small to characterize.. Suspect very minimal central intrahepatic biliary ductal dilatation.. Portal and splenic veins are opacified.. GALLBLADDER AND BILE DUCTS: Gallbladder is physiologically distended. There appears to be very minor wall thickening. No definitive evidence of intraluminal gallbladder calculi. Rule out acute acalculous cholecystitis. Common bile duct is slightly dilated. To the level of the ampulla however no obvious masses are identified. Consider follow-up ERCP given the presence of a pacemaker precluding MRCP. PANCREAS: No definitive evidence of a pancreatic masses or collections despite mild dilatation of the distal common bile duct at the level of the pancreatic head. Pancreas itself appears atrophic and fatty replaced with no obvious masses or collections. SPLEEN: Spleen exhibits normal size and attenuation pattern without mass collection or calcification. ADRENALS: No adrenal lesions are identified. KIDNEYS AND URETERS: Kidneys demonstrate symmetric nephrograms. No evidence of nephrolithiasis or hydronephrosis.. There may be some mild cortical scarring right kidney VASCULATURE: Unremarkable. No aortic aneurysm. No aortic atherosclerotic calcification or mural plaque present. BOWEL: Evaluation of the bowel is somewhat limited due to incomplete opacification. There is a small hiatal hernia with wall thickening of distal esophagus likely due to protrusion of gastric mucosa. Possibility of esophagitis or other intrinsic/invasive wall lesion not excluded. Postoperative changes of the stomach of with an anastomosis also seen in the proximal small bowel in the left mid abdomen which is locally dilated. No evidence of acute mechanical bowel obstruction with oral contrast material seen extending into the colon to the level of the rectosigmoid. There are scattered colonic diverticula seen along the sigmoid colon however no radiographic evidence of acute diverticulitis.. APPENDIX: Normal-appearing appendix. PERITONEUM: Unremarkable. No free fluid. No free air. Small fat containing umbilical hernia LYMPH NODES: Unremarkable. No enlarged lymph nodes. BLADDER: The urinary bladder is incompletely distended which may in part account for thick-walled appearance. Correlation with urinalysis suggested to exclude cystitis. REPRODUCTIVE: Small calcification seen in the anterior lower uterine body region possibly representing small calcified fibroid. BONES: Mild multilevel degenerative spondylosis of the lower thoracic and lumbar spine. There are no acute compression fractures nor retropulsed fragments. OTHER FINDINGS: Mild localized infiltration changes seen in the subcutaneous fat left lower anterior abdominal wall nonspecific.. IMPRESSION: Gallbladder appears moderately distended with minimal wall thickening. No definitive evidence of intraluminal gallbladder calculi. Slight dilatation of the common bile duct to the level of the pancreatic head and ampullary region however no definitive mass seen. Rule out acute acalculous cholecystitis. The pancreas is atrophic and fatty replaced. No definitive pancreatic mass. Consider follow-up ERCP in this patient with a pacemaker which precludes evaluation by MRCP Tiny 3 mm low-attenuation focus superior aspect right lobe liver too small to characterize. The suspect minimal central intrahepatic biliary duct dilatation. Postoperative changes of stomach likely gastric bypass surgery however clinical correlation recommended. Urinary bladder wall is slightly thickened likely due to incomplete distention however correlation with urinalysis to exclude a cystitis. Probable calcified uterine fibroid.
--- NOTE | 2018-12-02 16:25 | PN ---
DATE: 12/02/2018 SUBJECTIVE: The patient is 73 years old, seen and examined, still has right upper quadrant pain, but intensity has decreased. No nausea or vomiting. PHYSICAL EXAMINATION: VITAL SIGNS: She is afebrile. Pulse 86, respirations 18, blood pressure 146/74. LUNGS: Bilateral fair airflow. No rhonchi or crackle. HEART: S1 and S2 audible. ABDOMEN: Soft. Slight palpable discomfort. NEUROLOGIC: The patient is awake, alert, oriented, communicative. EXTREMITIES: Bilateral legs, no edema. LABORATORY EXAMINATION: Blood sugar is 102. She has pancreatic CT done as results are pending, and then she has HIDA scan done that shows abnormal hepatobiliary scan, nonvisualization of gallbladder in four hours. ASSESSMENT: 1. Acute cholecystitis. 2. Coronary artery disease, status post open heart surgery. 3. Gallbladder sludge. 4. History of gastric bypass. PLAN: We will continue the patient on IV fluids, awaiting pancreatic CT. Currently, she is on carvedilol, analgesic as needed. She is on IV antibiotics. We will monitor her blood sugar, continue her on Levaquin. Plan for laparoscopic cholecystectomy soon. Frances Mccartney MD
[2018-12-02] MEDS: Lactated Ringer's 1,000 ML IV SCH (17:41)
--- NOTE | 2018-12-03 05:55 | CP.PCM.PN ---
Subjective - Date & Time of Evaluation Date of Evaluation: 12/03/18 Time of Evaluation: 05:53 - Subjective Subjective: Surgery Pt seen and examined. No acute events. c/o pain. Denies feer, nausea, vomiting. Had CT pancreas yesterday. Dr. Almanza explained surgical procedure. Objective - Vital Signs/Intake and Output Vital Signs (last 24 hours): Temp Pulse Resp BP Pulse Ox 98.3 F 60 20 136/76 98 12/02/18 22:00 12/02/18 22:00 12/02/18 22:00 12/02/18 22:00 12/02/18 22:00 Intake and Output: 12/02/18 12/03/18 18:59 06:59 Intake Total 0 Balance 0 - Medications Medications: Current Medications Carvedilol (Coreg) 3.125 mg PO BID [facility] Last Admin: 12/02/18 17:43 Dose: 3.125 mg Hydralazine HCl (Apresoline) 10 mg IVP Q6 PRN PRN Reason: for sbp>160 Hydromorphone HCl (Dilaudid) 1 mg IVP Q4H PRN PRN Reason: Pain, severe (8-10) Lactated Ringer's (Lactated Ringer's) 1,000 mls @ 100 mls/hr IV .Q10H [facility] Last Admin: 12/02/18 17:41 Dose: 100 mls/hr Metronidazole (Flagyl) 500 mg in 100 mls @ 100 mls/hr IVPB Q8 [facility]; Protocol Last Admin: 12/02/18 22:39 Dose: 100 mls/hr Levofloxacin/Dextrose (Levaquin 500mg) 500 mg in 100 mls @ 100 mls/hr IVPB DAILY [facility]; Protocol Last Admin: 12/02/18 09:47 Dose: 100 mls/hr Insulin Human Lispro (Humalog Med) 0 units SC ACHS [facility]; Protocol Last Admin: 12/02/18 16:30 Dose: Not Given Levothyroxine Sodium (Synthroid) 112 mcg PO DAILY [facility] Last Admin: 12/02/18 15:23 Dose: 112 mcg Ondansetron HCl (Zofran Inj) 4 mg IVP Q4H PRN PRN Reason: Nausea/Vomiting Pantoprazole Sodium (Protonix Inj) 40 mg IVP DAILY [facility] Last Admin: 12/02/18 09:49 Dose: 40 mg - Labs Labs: 12/01/18 00:12 12/01/18 00:12 - Constitutional Appears: No Acute Distress - Head Exam Head Exam: ATRAUMATIC, NORMAL INSPECTION, NORMOCEPHALIC - Eye Exam Eye Exam: EOMI, Normal appearance, PERRL Pupil Exam: NORMAL ACCOMODATION, PERRL - ENT Exam ENT Exam: Mucous Membranes Moist, Normal Exam - Neck Exam Neck Exam: Full ROM - Respiratory Exam Respiratory Exam: NORMAL BREATHING PATTERN - Cardiovascular Exam Cardiovascular Exam: REGULAR RHYTHM - GI/Abdominal Exam GI & Abdominal Exam: Soft, Tenderness. absent: Distended, Firm, Guarding, Rigid - Exam Exam: NORMAL INSPECTION - Extremities Exam Extremities Exam: Full ROM, Normal Capillary Refill, Normal Inspection. absent: Joint Swelling, Pedal Edema - Back Exam Back Exam: NORMAL INSPECTION - Neurological Exam Neurological Exam: Alert, Awake, CN II-XII Intact, Normal Gait, Oriented x3 - Psychiatric Exam Psychiatric exam: Normal Affect, Normal Mood - Skin Skin Exam: Dry, Intact, Normal Color, Warm Assessment and Plan - Assessment and Plan (Free Text) Assessment: 73F w/ extensive cardiac hx; admitted for acute cholecystitis vs symptomatic cholelithiasis US: Large stone in neck of GB Last ECHO performed on 01/2018- EF 60-65% Cardiology cleared for surgery Plan: - WIll plan for OR lap connie Tuesday 10AM - NPO after midnight - ABX - IVF - cardiac risk stratification: stick puller cleared for surgery - PPI - pain control and Analgesia PRN - Nausea med - serial abd exams - further recs per Dr. Almanza surgical attending
[2018-12-03] MEDS: Insulin Lispro (humaLOG) MEDIUM Coverage SC SCH ×5 (06:08→23:43)
[2018-12-03] MEDS: metroNIDAZOLE IV 500 mg/100 ml 500 MG/100 ML BAG IVPB SCH ×3 (06:25→21:55)
[2018-12-03 10:05] LABS: EOS # 0.4 (0.0-0.7); EOS % 9.5 % (1.5-5.0); HEMOGLOBIN 9.5 g/dL (12.0-16.0); LYMPH # 1.4 (1.2-3.4); MEAN CELL VOLUME 81.7 fl (80.0-105.0); MEAN CORPUSCULAR HEMOGLOBIN 24.9 pg (25.0-35.0); MEAN CORPUSCULAR HGB CONC 30.4 g/dl (31.0-37.0); MEAN PLATELET VOLUME 9.2 fl (7.0-11.0); MONO # 0.2 (0.1-0.6); MONO % 5.7 % (1.0-6.0); RBC 3.82 10^6/uL (3.5-6.1); RED CELL DISTRIBUTION WIDTH 17.1 % (11.5-14.5); WHITE BLOOD COUNT 3.9 10^3/uL (4.5-11.0)
[2018-12-03 10:16] LABS: INR 1.12; PROTHROMBIN TIME 12.7 SECONDS (9.4-12.5)
[2018-12-03 10:20] LABS: ALB/GLOB RATIO 1.2 (1.1-1.8); ALBUMIN 3.5 g/dL (3.0-4.8); ALT/SGPT 107 U/L (7-56); AST/SGOT 65 U/L (14-36); BLOOD UREA NITROGEN 5 mg/dL (7-21); CALCIUM 8.7 mg/dL (8.4-10.5); GFR NON-AFRICAN AMERICAN > 60
[2018-12-03] MEDS: Levothyroxine 112 MCG TAB PO SCH (10:22)
[2018-12-03] MEDS: levoFLOXacin 500 mg in D5W 500 MG/100 ML BAG IVPB SCH (10:23)
[2018-12-03] MEDS: Lactated Ringer's 1,000 ML IV SCH ×2 (10:24→17:27)
--- NOTE | 2018-12-03 18:38 | CP.PCM.PN ---
<Gerson Núñez - Last Filed: 12/03/18 18:35> Subjective - Date & Time of Evaluation Date of Evaluation: 12/03/18 Time of Evaluation: 12:05 - Subjective Subjective: PGY-4 GI Fellow Prog Note Pt sitting up in bed when seen this AM. State still with some abd pain but stable. 5 point ROS negative other than stated above Objective - Vital Signs/Intake and Output Vital Signs (last 24 hours): Temp Pulse Resp BP Pulse Ox 97.5 F L 68 20 136/66 98 12/03/18 14:00 12/03/18 17:26 12/03/18 14:00 12/03/18 17:26 12/03/18 14:00 Intake and Output: 12/03/18 12/03/18 06:59 18:59 Intake Total 950 Balance 950 - Medications Medications: Current Medications Carvedilol (Coreg) 3.125 mg PO BID [facility] Last Admin: 12/03/18 17:26 Dose: 3.125 mg Hydralazine HCl (Apresoline) 10 mg IVP Q6 PRN PRN Reason: for sbp>160 Hydromorphone HCl (Dilaudid) 1 mg IVP Q4H PRN PRN Reason: Pain, severe (8-10) Lactated Ringer's (Lactated Ringer's) 1,000 mls @ 100 mls/hr IV .Q10H [facility] Last Admin: 12/03/18 17:27 Dose: 100 mls/hr Metronidazole (Flagyl) 500 mg in 100 mls @ 100 mls/hr IVPB Q8 [facility]; Protocol Last Admin: 12/03/18 14:02 Dose: 100 mls/hr Levofloxacin/Dextrose (Levaquin 500mg) 500 mg in 100 mls @ 100 mls/hr IVPB DAILY [facility]; Protocol Last Admin: 12/03/18 10:23 Dose: 100 mls/hr Insulin Human Lispro (Humalog Med) 0 units SC ACHS [facility]; Protocol Last Admin: 12/03/18 17:26 Dose: 1 unit Levothyroxine Sodium (Synthroid) 112 mcg PO DAILY [facility] Last Admin: 12/03/18 10:22 Dose: 112 mcg Ondansetron HCl (Zofran Inj) 4 mg IVP Q4H PRN PRN Reason: Nausea/Vomiting Pantoprazole Sodium (Protonix Inj) 40 mg IVP DAILY [facility] Last Admin: 12/03/18 10:22 Dose: 40 mg - Labs Labs: 12/03/18 09:50 12/03/18 09:50 PT 12.7 SECONDS (9.4-12.5) H 12/03/18 09:50 INR 1.12 12/03/18 09:50 - Constitutional Appears: Well, No Acute Distress - Head Exam Head Exam: ATRAUMATIC, NORMAL INSPECTION - Eye Exam Eye Exam: EOMI. absent: Scleral icterus - Respiratory Exam Respiratory Exam: NORMAL BREATHING PATTERN. absent: Accessory Muscle Use, Respiratory Distress - GI/Abdominal Exam GI & Abdominal Exam: Soft. absent: Bruit, Distended, Firm, Guarding, Rigid, Tenderness, Mass, Organomegaly, Pulsatile Mass Assessment and Plan - Assessment and Plan (Free Text) Assessment: 73 yo F with PMH of insulin dependent DM, HLD, CABG, pacemaker, hypothyroid, iron deficient anemia, and GERD presents to [facility] [place] for abdominal pain concerning for cholecystitis. 1. Abdominal Pain - Biliary colic vs cholecystitis. Abdominal US reviewed intraluminal gallbladder sludge, but no pericholecystic fluid and no CBD dilation. + HIDA with delayed phase. 2. H/o Iron deficiency anemia Plan: - Cholecystectomy per Surgery - PPI - Cont IV abx - Diet per Surgery/Primary Patient seen and discussed in detail with Dr. Hein. <Patrick Hein V - Last Filed: 12/03/18 23:58> Objective - Vital Signs/Intake and Output Vital Signs (last 24 hours): Temp Pulse Resp BP Pulse Ox 97.5 F L 65 20 149/71 99 12/03/18 22:00 12/03/18 22:00 12/03/18 22:00 12/03/18 22:00 12/03/18 22:00 Intake and Output: 12/03/18 12/04/18 18:59 06:59 Intake Total 950 Balance 950 - Medications Medications: Current Medications Carvedilol (Coreg) 3.125 mg PO BID [facility] Last Admin: 12/03/18 17:26 Dose: 3.125 mg Hydralazine HCl (Apresoline) 10 mg IVP Q6 PRN PRN Reason: for sbp>160 Hydromorphone HCl (Dilaudid) 1 mg IVP Q4H PRN PRN Reason: Pain, severe (8-10) Lactated Ringer's (Lactated Ringer's) 1,000 mls @ 100 mls/hr IV .Q10H [facility] Last Admin: 12/03/18 17:27 Dose: 100 mls/hr Metronidazole (Flagyl) 500 mg in 100 mls @ 100 mls/hr IVPB Q8 [facility]; Protocol Last Admin: 12/03/18 21:55 Dose: 100 mls/hr Levofloxacin/Dextrose (Levaquin 500mg) 500 mg in 100 mls @ 100 mls/hr IVPB DAILY [facility]; Protocol Last Admin: 12/03/18 10:23 Dose: 100 mls/hr Insulin Human Lispro (Humalog Med) 0 units SC ACHS [facility]; Protocol Last Admin: 12/03/18 23:43 Dose: Not Given Levothyroxine Sodium (Synthroid) 112 mcg PO DAILY [facility] Last Admin: 12/03/18 10:22 Dose: 112 mcg Ondansetron HCl (Zofran Inj) 4 mg IVP Q4H PRN PRN Reason: Nausea/Vomiting Pantoprazole Sodium (Protonix Inj) 40 mg IVP DAILY [facility] Last Admin: 12/03/18 10:22 Dose: 40 mg - Labs Labs: 12/03/18 09:50 12/03/18 09:50 PT 12.7 SECONDS (9.4-12.5) H 12/03/18 09:50 INR 1.12 12/03/18 09:50 Attending/Attestation - Attestation I have personally seen and examined this patient.: Yes I have fully participated in the care of the patient.: Yes I have reviewed all pertinent clinical information, including history, physical exam and plan: Yes Notes (Text): This is an addendum to GI progress report dictated by the GI Fellow. The patient was seen and examined earlier. Medical records, lab studies, imagings were reviewed. Last 24 hours events reviewed. Agreed with the above treatment plan as outlined in GI Fellow 's notes with the addition of the following Patient still complains of riht upper quadrant pain HIDA scan positive for acute cholecystitis, nonvisualized gallbladder even after [address] scan was reviewed MRI cannot be considered to further evaluate pancreas in view of the pacemaker EUS will be a limited study in view of the gastric bypass Reasonably thing is to consider pancreatic protocol electively Patient would need surgery in view of acute cholecystitis Status post gastric bypass history of PUD continue PPI 12/03/18 23:55
--- NOTE | 2018-12-03 20:06 | PN ---
DATE: 12/03/2018 SUBJECTIVE: The patient is a 73-year-old, seen and examined, doing well. Still has right upper quadrant pain. No nausea, vomiting, or diarrhea. PHYSICAL EXAMINATION VITAL SIGNS: She is afebrile, pulse 66, respirations 20, and blood pressure 136/65. LUNGS: Bilateral fair airflow. No rhonchi or crackle. HEART: S1 and S2 audible. ABDOMEN: Soft, obese, and nontender and palpable right upper quadrant discomfort. NEUROLOGIC: She is awake, alert, oriented, and communicative. LABORATORY DATA: WBC 3.9, hemoglobin 9.5, hematocrit 31.2, and platelets 216. Chemistry: Sodium 140, potassium 4.7, chloride 104, CO2 29, BUN 5, creatinine 0.7, and blood sugar of 193. Blood cultures are negative. ASSESSMENT AND PLAN: 1. Acute cholecystitis. 2. History of gastric bypass. 3. Coronary artery disease status post open heart surgery. 4. Chronic anemia. 5. Hypothyroidism. 6. Insulin-dependent diabetes. PLAN: Currently, the patient is n.p.o. She is getting IV fluids. She is getting antibiotics. She is scheduled for cholecystectomy in a.m. Frances Mccartney MD
[2018-12-04] MEDS: Lactated Ringer's 1,000 ML IV SCH (02:34)
[2018-12-04] MEDS: metroNIDAZOLE IV 500 mg/100 ml 500 MG/100 ML BAG IVPB SCH ×3 (05:10→23:22)
[2018-12-04 07:52] LABS: BASO # 0.01 K/mm3 (0.0-2.0); BASO % 0.2 % (0.0-3.0); EOS # 0.5 (0.0-0.7); EOS % 7.5 % (1.5-5.0); HEMOGLOBIN 10.9 g/dL (12.0-16.0); LYMPH # 2.3 (1.2-3.4); LYMPH % 38.4 % (22.0-35.0); MEAN CELL VOLUME 81.9 fl (80.0-105.0); MEAN CORPUSCULAR HGB CONC 30.5 g/dl (31.0-37.0); MEAN PLATELET VOLUME 9.6 fl (7.0-11.0); MONO # 0.4 (0.1-0.6); RBC 4.36 10^6/uL (3.5-6.1); RED CELL DISTRIBUTION WIDTH 17.2 % (11.5-14.5)
[2018-12-04 08:00] LABS: INR 1.06
[2018-12-04 08:07] LABS: ALB/GLOB RATIO 1.2 (1.1-1.8); ALBUMIN 4.2 g/dL (3.0-4.8); ALT/SGPT 91 U/L (7-56); AST/SGOT 58 U/L (14-36); BLOOD UREA NITROGEN 5 mg/dL (7-21); CALCIUM 9.3 mg/dL (8.4-10.5); GFR NON-AFRICAN AMERICAN > 60
[2018-12-04] MEDS: Insulin Lispro (humaLOG) MEDIUM Coverage SC SCH ×4 (08:28→19:10)
[2018-12-04] MEDS: levoFLOXacin 500 mg in D5W 500 MG/100 ML BAG IVPB SCH (09:47)
[2018-12-04] MEDS: Levothyroxine 112 MCG TAB PO SCH (09:55)
[2018-12-04] MEDS ORDERED: Bupivacaine 0.5% 50 ML IJ ONE (10:05)
[2018-12-04] MEDS ORDERED: Iohexol 240 (50 ml) ONE (10:12)
[2018-12-04] MEDS ORDERED: Midazolam 2 MG/2 ML VIAL ONE (11:06)
[2018-12-04] MEDS ORDERED: Etomidate 20 mg/10ml Inj IV ONE (11:07)
[2018-12-04] MEDS ORDERED: Succinylcholine 200 mg/10 ml Inj IV ONE (11:07)
[2018-12-04] MEDS ORDERED: Rocuronium 10 mg/ml (5 ml) ONE (11:33)
[2018-12-04] MEDS ORDERED: Bupivacaine 0.5% Inj(30mL) IJ ONE (11:38)
--- NOTE | 2018-12-04 12:51 | PN ---
DATE: 12/04/2018 SUBJECTIVE: The patient is 73-year-old, seen and examined. further procedure. Denies any nausea or vomiting. Still has right upper quadrant discomfort. Neurologically, she is awake, alert, oriented and communicative. PHYSICAL EXAMINATION: VITAL SIGNS: She is afebrile. Pulse 60, respiration 20 and blood pressure 154/70. LUNGS: Bilateral fair airflow. No rhonchi or crackle. HEART: S1 and S2, audible. ABDOMEN: Soft. Slight palpable right upper quadrant discomfort. NEUROLOGICAL: She is awake, alert, oriented and communicative. LABORATORY DATA: WBC 6.0, hemoglobin 10.9, hematocrit 35.7 and platelet 280. PT 12.0 and INR 1.06. Chemistry; sodium 140, potassium 4.2, chloride 104, CO2 of 28, BUN 5, creatinine 0.7, blood sugar 176, AST 58, ALT 91 and alk phos 127. ASSESSMENT: 1. Acute cholecystitis. 2. Cholelithiasis. 3. History of gastric bypass. 4. Hypertension. 5. Coronary artery disease, status post angioplasty. PLAN: We will continue the patient on current medications. She is n.p.o. She will get IV antibiotic. We will followup her CBC and CMP in a.m. Frances Mccartney MD
[2018-12-04] MEDS ORDERED: Glycopyrrolate 0.2 mg/ml (2ml vial) ONE (13:19)
[2018-12-04] MEDS ORDERED: Neostigmine Methylsulfate 3mg/3ml Syringe IV ONE (13:19)
[2018-12-04] MEDS ORDERED: HYDROmorphone 0.5 mg/0.5 ml ISec IVP PRN (13:45)
[2018-12-04] MEDS ORDERED: Lactated Ringer's 1,000 ML IV SCH ×2 (13:45→14:00)
--- NOTE | 2018-12-04 13:50 | PCM.SURG1 ---
Surgeon's Initial Post Op Note - Surgeon's Notes Surgeon: Dr. Almanza Billboard Erector Helper: PGY4; Marck PGY2 Type of Anesthesia: General Endo, Local Anesthesia Administered By: Dr. Menendez Pre-Operative Diagnosis: Cholecystitis Operative Findings: See operative report Post-Operative Diagnosis: Same Operation Performed: Laparoscopic Cholecystectomy with Intraoperative Cholangiogram. Extensive Lysis of Adhesions Specimen/Specimens Removed: Gallbladder. GB aspirate culture Estimated Blood Loss: EBL {In ML}: 20 Blood Products Given: N/A Drains Used: No Drains Post-Op Condition: Good Date of Surgery/Procedure: 12/04/18 Time of Surgery/Procedure: 13:50
--- NOTE | 2018-12-04 18:20 | PN ---
DATE: 12/04/2018 LOCATION: Room 573, bed 3. REASON FOR CONSULTATION: Followup, coronary artery disease, status post pacemaker insertion, history of CABG, admitted with abdominal pain, cholecystitis, need preop evaluation. BRIEF MEDICAL HISTORY: A 73-year-old female admitted with abdominal pain, found to have possible cholecystitis, needs surgery, needs cardiac evaluation for that purpose. The patient has coronary artery disease, anomalous origin of RCA, history of pacemaker, sick sinus syndrome, status post pacemaker and generator change recently, came with abdominal pain and the patient denies any chest pain, shortness of breath, palpitations. The patient's detailed cardiac history mentioned in our consult dated 12/01/2018. The patient lying flat in bed without any cardiac symptoms. PHYSICAL EXAMINATION: VITAL SIGNS: Blood pressure 150/51, respirations 20, pulse 62, temperature 97.8. HEENT: Head: Normocephalic. Eyes: Pupils are normal. Conjunctiva slightly pale. NECK: JVP low. Carotids equal. THORAX: AP diameter is normal. LUNGS: Clear. CARDIOVASCULAR: S1 and S2. ABDOMEN: Soft. Vague tenderness in the upper abdomen. Bowel sounds normal. EXTREMITIES: No clubbing. No cyanosis. LABORATORY DATA: WBC 6, hemoglobin 10.9, hematocrit 35.7, platelet 280. Sodium 140, potassium 4.2, BUN 5, creatinine 0.7, AST 58, ALT 91, alkaline phosphatase 127, total protein 7.7, albumin 4.2, creatinine 0.7, BUN 5. DIAGNOSES: Coronary artery disease, status post coronary artery bypass graft, history of pacemaker insertion, diabetes, hypertension, hyperlipidemia, one-vessel bypass surgery, pacemaker generator change in 2012. Recent stress test in 01/2018 was normal. Echo was done on 02/08/2018, showed normal left ventricular function. Acute cholecystitis, needs cholecystectomy. PLAN: We already mentioned in our consult that the patient can go for cholecystectomy at moderate risk due to underlying morbid obesity condition. There is no absolute contraindication at present. We will continue beta marquise and we will monitor with you and follow with you. Nikole Smith MD
[2018-12-04] MEDS: HYDROmorphone 0.5 mg/0.5 ml ISec IVP PRN (18:27)
[2018-12-05] MEDS: Insulin Lispro (humaLOG) MEDIUM Coverage SC SCH ×5 (00:58→22:13)
[2018-12-05] MEDS: HYDROmorphone 0.5 mg/0.5 ml ISec IVP PRN (02:04)
[2018-12-05] MEDS: metroNIDAZOLE IV 500 mg/100 ml 500 MG/100 ML BAG IVPB SCH (04:59)
[2018-12-05 07:48] LABS: EOS % 0.5 % (1.5-5.0); HEMOGLOBIN 9.2 g/dL (12.0-16.0); LYMPH # 1.4 (1.2-3.4); LYMPH % 23.3 % (22.0-35.0); MEAN CELL VOLUME 81.3 fl (80.0-105.0); MEAN CORPUSCULAR HEMOGLOBIN 25.3 pg (25.0-35.0); MEAN CORPUSCULAR HGB CONC 31.1 g/dl (31.0-37.0); MEAN PLATELET VOLUME 9.2 fl (7.0-11.0); MONO # 0.4 (0.1-0.6); MONO % 5.9 % (1.0-6.0); RBC 3.64 10^6/uL (3.5-6.1); WHITE BLOOD COUNT 6.1 10^3/uL (4.5-11.0)
[2018-12-05 08:34] LABS: ALB/GLOB RATIO 1.1 (1.1-1.8); ALBUMIN 3.3 g/dL (3.0-4.8); ALT/SGPT 123 U/L (7-56); AMYLASE 39 U/L (35-125); AST/SGOT 167 U/L (14-36); BLOOD UREA NITROGEN 7 mg/dL (7-21); CALCIUM 8.3 mg/dL (8.4-10.5); GFR NON-AFRICAN AMERICAN > 60
--- NOTE | 2018-12-05 09:31 | CP.PCM.PN ---
Subjective - Date & Time of Evaluation Date of Evaluation: 12/05/18 Time of Evaluation: 06:45 - Subjective Subjective: Surgery Progress note. Dr. Almanza Pt seen and examined at bedside. No acute events overnight. c/o some nausea and vomiting x1 yesterday. Has been tolerating some liquids yesterday evening. No F/C. Eric with some dark output, 100 cc since surgery. Objective - Vital Signs/Intake and Output Vital Signs (last 24 hours): Temp Pulse Resp BP Pulse Ox 98.3 F 59 L 20 160/59 H 93 L 12/05/18 06:00 12/05/18 06:00 12/05/18 06:00 12/05/18 06:00 12/05/18 06:00 Intake and Output: 12/05/18 12/05/18 06:59 18:59 Intake Total 100 Balance 100 - Medications Medications: Current Medications Amlodipine Besylate (Norvasc) 5 mg PO DAILY [facility] Last Admin: 12/04/18 23:22 Dose: 5 mg Carvedilol (Coreg) 3.125 mg PO BID [facility] Last Admin: 12/04/18 18:28 Dose: 3.125 mg Hydralazine HCl (Apresoline) 10 mg IVP Q6 PRN PRN Reason: for sbp>160 Hydromorphone HCl (Dilaudid) 0.5 mg IVP Q4H PRN PRN Reason: Pain, severe (8-10) Last Admin: 12/05/18 02:04 Dose: 0.5 mg Metronidazole (Flagyl) 500 mg in 100 mls @ 100 mls/hr IVPB Q8 [facility]; Protocol Last Admin: 12/05/18 04:59 Dose: 100 mls/hr Levofloxacin/Dextrose (Levaquin 500mg) 500 mg in 100 mls @ 100 mls/hr IVPB DAILY [facility]; Protocol Last Admin: 12/04/18 09:47 Dose: 100 mls/hr Lactated Ringer's (Lactated Ringer's) 1,000 mls @ 100 mls/hr IV .Q10H [facility] Insulin Human Lispro (Humalog Med) 0 units SC ACHS [facility]; Protocol Last Admin: 12/05/18 08:52 Dose: 1 unit Levothyroxine Sodium (Synthroid) 112 mcg PO DAILY [facility] Last Admin: 12/04/18 09:55 Dose: Not Given Metoclopramide HCl (Reglan) 10 mg IV ONCE PRN PRN Reason: Nausea/Vomiting Ondansetron HCl (Zofran Inj) 4 mg IVP Q6H PRN PRN Reason: Nausea/Vomiting Last Admin: 12/04/18 18:27 Dose: 4 mg Pantoprazole Sodium (Protonix Inj) 40 mg IVP DAILY [facility] Last Admin: 12/04/18 09:54 Dose: 40 mg - Labs Labs: 12/05/18 07:30 12/05/18 07:30 PT 12.0 SECONDS (9.4-12.5) 12/04/18 07:40 INR 1.06 12/04/18 07:40 APTT 34.0 Seconds (26.9-38.3) 12/04/18 07:40 - Constitutional Appears: Well, Non-toxic, No Acute Distress - Head Exam Head Exam: ATRAUMATIC, NORMAL INSPECTION, NORMOCEPHALIC - Eye Exam Eye Exam: EOMI, Normal appearance. absent: Scleral icterus - ENT Exam ENT Exam: Mucous Membranes Moist - Respiratory Exam Respiratory Exam: NORMAL BREATHING PATTERN. absent: Accessory Muscle Use, Respiratory Distress - Cardiovascular Exam Cardiovascular Exam: absent: JVD - GI/Abdominal Exam GI & Abdominal Exam: Soft. absent: Distended, Guarding, Rigid, Rebound Additional comments: Incisions clean, dry and intact. Eric in place with dark output noted 100cc since surgery. - Extremities Exam Extremities Exam: Normal Inspection. absent: Calf Tenderness - Neurological Exam Neurological Exam: Alert, Awake, Oriented x3 - Psychiatric Exam Psychiatric exam: Normal Affect, Normal Mood - Skin Skin Exam: Dry, Intact, Normal Color, Warm Assessment and Plan - Assessment and Plan (Free Text) Assessment: 73yo F s/p Lap Priscila. POD 1 Plan: - Encourage OOBTC - Encourage IS use - Continue eric to self suction - pain management - Advance diet as tolerated Further recs as per Dr. Archie Acharya PGY2 surgery
[2018-12-05] MEDS ORDERED: Magnesium Sulfate 1 gm in D5W 1 GM/100 ML BAG IV ONE (12:06)
[2018-12-05] MEDS: Oxycodone/Acetaminophen 5/325 mg Tab PO PRN (13:23)
[2018-12-05] MEDS: Levothyroxine 112 MCG TAB PO SCH (15:21)
--- NOTE | 2018-12-05 15:37 | PN ---
DATE: 12/05/2018 SUBJECTIVE: The patient is 73-year-old, seen and examined. Complaint of some abdominal discomfort. Complaint of right upper quadrant discomfort at surgical site. No nausea or vomiting. PHYSICAL EXAMINATION: VITAL SIGNS: She is afebrile. Pulse 59, respirations 20 and blood pressure 121/57. LUNGS: Bilateral fair airflow. No rhonchi or crackle. HEART: S1 and S2, audible. ABDOMEN: Soft. Palpable discomfort at surgical site. NEUROLOGICAL: She is awake, alert, oriented and communicative. LABORATORY DATA: WBC 6.1, hemoglobin 9.2, hematocrit 29.6 and platelet 201. Chemistry; sodium 137, potassium 4.0, chloride 100, CO2 of 30, BUN 7, creatinine 0.7, blood sugar of 325, magnesium 1.4, AST 167, ALT 123 and alk phos is 184. ASSESSMENT: 1. Status post acute cholecystitis. 2. Laparoscopic cholecystectomy. 3. History of open heart surgery in remote past. 4. Status post gastric bypass. PLAN: Monitor her blood sugar. I will start her on high dose regular insulin coverage. We will followup the patient in a.m. Frances Mccartney MD
--- NOTE | 2018-12-05 16:33 | RAD ---
Date of service: 12/04/2018 PROCEDURE: Operative cholangiogram HISTORY: ? CBD OBST. COMPARISON: TECHNIQUE: Fluoroscopy was provided in the operating room. 57.8 sec of fluoro time. Cumulative dose 18.29 mGy. Three images were submitted FINDINGS: There are no filling defects in the common duct. Contrast flows into the duodenum without obstruction IMPRESSION: As above
--- NOTE | 2018-12-05 17:29 | PN ---
DATE: 12/05/2018 REASON FOR CONSULTATION AND FOLLOWUP: Coronary artery disease, status post pacemaker through CABG, admitted with abdominal pain, cholecystitis, status post laparoscopic cholecystectomy yesterday. SUBJECTIVE: Denies any chest pain, shortness of breath, or any palpitation. PHYSICAL EXAMINATION: VITAL SIGNS: Temperature afebrile, heart rate 80, and blood pressure 121/53. HEENT: Extraocular muscles intact. NECK: Supple. No carotid bruit or thyromegaly. CHEST: Clear to auscultation. HEART: S1 and S2 regular. ABDOMEN: Soft. EXTREMITIES: Clubbing and cyanosis negative. LABORATORY DATA: Blood workup as follows: WBC 6.8, hemoglobin 9.8, hematocrit 29.6, and platelet count 201. Chemistry shows sodium 136, potassium 4, chloride 100, carbon dioxide 30, anion gap of 11, BUN 7, and creatinine 0.7. IMPRESSION: A 73-year-old obese female with past medical history of coronary artery disease, coronary artery bypass graft, status post pacemaker status post laparoscopic cholecystectomy. CVS status is stable. Recent stress test 01/30/2009 negative. RECOMMENDATION: The patient was cleared to go for surgery. Continue perioperative beta-marquise, hydralazine p.r.n., continue amlodipine. So far, CVS status is stable. We will follow with you. Thank you Dr. Mccartney for providing us the opportunity in taking care of your patient, Bettina [place]. Nikole Ennis MD
[2018-12-06] MEDS: Oxycodone/Acetaminophen 5/325 mg Tab PO PRN ×2 (03:50→10:09)
[2018-12-06 07:42] LABS: EOS # 0.3 (0.0-0.7); EOS % 4.9 % (1.5-5.0); HEMOGLOBIN 9.2 g/dL (12.0-16.0); LYMPH # 1.6 (1.2-3.4); LYMPH % 29.4 % (22.0-35.0); MEAN CELL VOLUME 81.2 fl (80.0-105.0); MEAN CORPUSCULAR HEMOGLOBIN 25.4 pg (25.0-35.0); MEAN CORPUSCULAR HGB CONC 31.3 g/dl (31.0-37.0); MEAN PLATELET VOLUME 9.5 fl (7.0-11.0); MONO # 0.4 (0.1-0.6); RBC 3.62 10^6/uL (3.5-6.1); RED CELL DISTRIBUTION WIDTH 17.3 % (11.5-14.5); WHITE BLOOD COUNT 5.5 10^3/uL (4.5-11.0)
[2018-12-06 08:00] LABS: ALB/GLOB RATIO 1.1 (1.1-1.8); ALBUMIN 3.1 g/dL (3.0-4.8); ALT/SGPT 89 U/L (7-56); AST/SGOT 81 U/L (14-36); BLOOD UREA NITROGEN 7 mg/dL (7-21); CALCIUM 8.1 mg/dL (8.4-10.5); GFR NON-AFRICAN AMERICAN > 60
[2018-12-06] MEDS: Insulin Lispro (humaLOG) MEDIUM Coverage SC SCH ×4 (09:59→22:36)
[2018-12-06] MEDS: Levothyroxine 112 MCG TAB PO SCH (10:00)
[2018-12-06] MEDS ORDERED: Bisacodyl 5mg EC Tab PO ONE (12:27)
--- NOTE | 2018-12-06 12:30 | CP.PCM.PN ---
Subjective - Date & Time of Evaluation Date of Evaluation: 12/06/18 Time of Evaluation: 10:00 - Subjective Subjective: Surgery Progress note. Dr. Almanza Pt seen and examined at bedside. No new events overnight. Tolerating diet. Eric removed this morning, serros output noted overnight. No F/C. no new complaints. Objective - Vital Signs/Intake and Output Vital Signs (last 24 hours): Temp Pulse Resp BP Pulse Ox 98.7 F 60 20 124/60 95 12/06/18 06:00 12/06/18 06:00 12/06/18 06:00 12/06/18 10:00 12/06/18 06:00 Intake and Output: 12/06/18 12/06/18 06:59 18:59 Intake Total 600 Output Total 105 Balance 495 - Medications Medications: Current Medications Amlodipine Besylate (Norvasc) 5 mg PO DAILY [facility] Last Admin: 12/06/18 10:00 Dose: 5 mg Carvedilol (Coreg) 3.125 mg PO BID [facility] Last Admin: 12/06/18 09:58 Dose: 3.125 mg Hydralazine HCl (Apresoline) 10 mg IVP Q6 PRN PRN Reason: for sbp>160 Insulin Human Lispro (Humalog Med) 0 units SC [facility]; Protocol Last Admin: 12/06/18 11:39 Dose: 5 units Levothyroxine Sodium (Synthroid) 112 mcg PO DAILY [facility] Last Admin: 12/06/18 10:00 Dose: 112 mcg Metoclopramide HCl (Reglan) 10 mg IV ONCE PRN PRN Reason: Nausea/Vomiting Ondansetron HCl (Zofran Inj) 4 mg IVP Q6H PRN PRN Reason: Nausea/Vomiting Last Admin: 12/04/18 18:27 Dose: 4 mg Oxycodone/Acetaminophen (Percocet 5/325 Mg Tab) 1 tab PO Q6H PRN PRN Reason: Pain, moderate (4-7) Stop: 12/08/18 09:35 Last Admin: 12/06/18 10:09 Dose: 1 tab Pantoprazole Sodium (Protonix Inj) 40 mg IVP DAILY [facility] Last Admin: 12/06/18 10:03 Dose: 40 mg - Labs Labs: 12/06/18 07:20 12/06/18 07:20 PT 12.0 SECONDS (9.4-12.5) 12/04/18 07:40 INR 1.06 12/04/18 07:40 APTT 34.0 Seconds (26.9-38.3) 12/04/18 07:40 - Constitutional Appears: Well, Non-toxic, No Acute Distress - Head Exam Head Exam: ATRAUMATIC, NORMAL INSPECTION, NORMOCEPHALIC - Eye Exam Eye Exam: EOMI. absent: Scleral icterus - ENT Exam ENT Exam: Mucous Membranes Moist - Respiratory Exam Respiratory Exam: NORMAL BREATHING PATTERN. absent: Accessory Muscle Use, Re spiratory Distress - Cardiovascular Exam Cardiovascular Exam: RRR. absent: JVD - GI/Abdominal Exam GI & Abdominal Exam: Soft. absent: Distended, Firm, Guarding, Rebound Additional comments: Abdominal incisions clean dry and intact with dermabond. - Extremities Exam Extremities Exam: Normal Inspection. absent: Calf Tenderness - Neurological Exam Neurological Exam: Alert, Awake, Oriented x3 - Psychiatric Exam Psychiatric exam: Normal Affect, Normal Mood - Skin Skin Exam: Dry, Intact, Normal Color, Warm Assessment and Plan - Assessment and Plan (Free Text) Assessment: 73yo F s/p Lap connie. POD 2 Plan: - Encourage OOBTC - Encourage IS use - Drain removed today - Pain management - f/u tomorrow AM labs - Stool softeners. Monitor bowel fxn Further recs as per Dr. Archie Acharya PGY 2 surgery
--- NOTE | 2018-12-06 15:49 | PN ---
DATE: 12/06/2018 SUBJECTIVE: The patient is 73 years old, seen and examined, ambulating, complained of abdominal discomfort, does not want to go to TCU. PHYSICAL EXAMINATION: VITAL SIGNS: She is afebrile, pulse 60, respirations 20, and blood pressure 124/60. LUNGS: Bilateral fair airflow, no rhonchi or crackles. HEART: S1 and S2 audible. ABDOMEN: Soft, nontender, no rebound, palpable discomfort. NEUROLOGIC: She is awake, alert, and oriented, communicative. LABORATORY DATA: WBC 5.5, hemoglobin 9.2, hematocrit 29.4, and platelets 190. Chemistry: Sodium 135, potassium 3.7, chloride 100, CO2 of 31, BUN 7, creatinine 0.6, blood sugar of 286, AST 81, ALT 9, alk phos is 147. ASSESSMENT: 1. Acute cholecystitis, status post laparoscopic cholecystectomy. 2. Hypertension. 3. History of gastric bypass. 4. Coronary artery disease, status post open heart surgery. PLAN: We will continue the patient on current medication, monitor blood sugar, encourage ambulation, and if the patient remains stable, possible discharge in the a.m. Frances Mccartney MD
--- NOTE | 2018-12-06 16:19 | CP.PCM.PCO ---
Physician Communication Note - Physician Communication Note Physician Communication Note: Drain out/Gary diet/LFT Improving/?d/c in am
--- NOTE | 2018-12-06 16:59 | PN ---
DATE: 12/06/2018 LOCATION: Room 578, bed 2. REASON FOR CONSULTATION AND FOLLOWUP: Coronary artery disease, status post pacemaker insertion, history of CABG, status post laparoscopic cholecystectomy for cholecystitis. SUBJECTIVE: The patient is lying flat in bed without chest pain, shortness of breath, palpitation. She complains of discomfort at the surgical site of abdomen. PHYSICAL EXAMINATION VITAL SIGNS: Blood pressure 120/61, respiratory rate 20, pulse 60, temperature 98.7. HEENT: Head is normocephalic. Eyes, pupils normal. Conjunctivae are slightly pale. NECK: JVP low. Carotids equal. THORAX: AP diameter is normal. LUNGS: Clear. CARDIOVASCULAR: S1 and S2. ABDOMEN: Operation laparoscopic cholecystectomy as mentioned. EXTREMITIES: Periphery, no clubbing, no cyanosis. LABORATORY DATA: WBC 5.5, hemoglobin 9.2, hematocrit 29.4, platelets 190. Sodium 135, potassium 3.7, BUN 7, creatinine 0.6, sugar random 286, random glucose 242, calcium 8.1. AST 81, ALT 89, alkaline phosphatase 147. DIAGNOSES: Status post laparoscopic cholecystectomy, coronary artery disease, status post coronary artery bypass surgery, status post pacemaker insertion. PLAN: Clinically, the patient's cardiac status is stable. The patient's recent stress test was negative for ischemia. The patient on carvedilol 3.125 mg b.i.d., amlodipine 5 mg daily, Protonix 40 mg IV daily, levothyroxine 112 mcg p.o. daily. We will continue present therapy and we will follow with you. Nikole Smith MD
[2018-12-06 23:05] VITALS: RESP 18; TEMP 98.4
[2018-12-07 08:29] VITALS: BP 133/43; PULSE 60; O2SAT 96
[2018-12-07] MEDS: Insulin Lispro (humaLOG) MEDIUM Coverage SC SCH ×2 (08:42→12:08)
[2018-12-07 09:06] LABS: BASO # 0.01 K/mm3 (0.0-2.0); BASO % 0.2 % (0.0-3.0); EOS # 0.4 (0.0-0.7); EOS % 6.7 % (1.5-5.0); HEMOGLOBIN 9.7 g/dL (12.0-16.0); LYMPH # 1.6 (1.2-3.4); MEAN CELL VOLUME 82.2 fl (80.0-105.0); MEAN CORPUSCULAR HEMOGLOBIN 25.5 pg (25.0-35.0); MEAN PLATELET VOLUME 9.6 fl (7.0-11.0); MONO # 0.4 (0.1-0.6); MONO % 6.5 % (1.0-6.0); RBC 3.81 10^6/uL (3.5-6.1); RED CELL DISTRIBUTION WIDTH 17.1 % (11.5-14.5); WHITE BLOOD COUNT 5.8 10^3/uL (4.5-11.0)
--- NOTE | 2018-12-07 09:08 | CP.PCM.PN ---
Subjective - Date & Time of Evaluation Date of Evaluation: 12/07/18 Time of Evaluation: 06:45 - Subjective Subjective: Awake, ambulating to the bathroom, feels okay Reason for consultation and follow up: Pre- op risk stratification, history of coronary artery disease, post CABG, PPM, admitted for cholecystitis, post cholecystectomy, post op follow up Seen and examined by me and Dr. Ennis Objective - Vital Signs/Intake and Output Vital Signs (last 24 hours): Temp Pulse Resp BP Pulse Ox 98.4 F 60 18 133/43 L 96 12/07/18 06:00 12/07/18 06:00 12/07/18 06:00 12/07/18 06:00 12/07/18 06:00 Intake and Output: 12/07/18 12/07/18 06:59 18:59 Intake Total 600 Balance 600 - Medications Medications: Current Medications Amlodipine Besylate (Norvasc) 5 mg PO DAILY [facility] Last Admin: 12/06/18 10:00 Dose: 5 mg Carvedilol (Coreg) 3.125 mg PO BID [facility] Last Admin: 12/06/18 17:48 Dose: 3.125 mg Docusate Sodium (Colace) 100 mg PO TID [facility] Last Admin: 12/06/18 17:47 Dose: 100 mg Hydralazine HCl (Apresoline) 10 mg IVP Q6 PRN PRN Reason: for sbp>160 Insulin Human Lispro (Humalog Med) 0 units SC [facility]; Protocol Last Admin: 12/07/18 08:42 Dose: 3 units Levothyroxine Sodium (Synthroid) 112 mcg PO DAILY [facility] Last Admin: 12/06/18 10:00 Dose: 112 mcg Metoclopramide HCl (Reglan) 10 mg IV ONCE PRN PRN Reason: Nausea/Vomiting Ondansetron HCl (Zofran Inj) 4 mg IVP Q6H PRN PRN Reason: Nausea/Vomiting Last Admin: 12/04/18 18:27 Dose: 4 mg Oxycodone/Acetaminophen (Percocet 5/325 Mg Tab) 1 tab PO Q6H PRN PRN Reason: Pain, moderate (4-7) Stop: 12/08/18 09:35 Last Admin: 12/06/18 10:09 Dose: 1 tab Pantoprazole Sodium (Protonix Inj) 40 mg IVP DAILY [facility] Last Admin: 12/06/18 10:03 Dose: 40 mg - Labs Labs: 12/06/18 07:20 12/06/18 07:20 PT 12.0 SECONDS (9.4-12.5) 12/04/18 07:40 INR 1.06 12/04/18 07:40 APTT 34.0 Seconds (26.9-38.3) 12/04/18 07:40 - Constitutional Appears: Non-toxic, No Acute Distress - Head Exam Head Exam: NORMAL INSPECTION, NORMOCEPHALIC - Eye Exam Eye Exam: Normal appearance Pupil Exam: NORMAL ACCOMODATION - ENT Exam ENT Exam: Mucous Membranes Moist, Normal Exam - Respiratory Exam Respiratory Exam: Clear to Ausculation Bilateral, NORMAL BREATHING PATTERN - Cardiovascular Exam Cardiovascular Exam: +S1, +S2 Additional comments: PPM - GI/Abdominal Exam GI & Abdominal Exam: Soft, Normal Bowel Sounds Additional comments: burping, passing flatus - Extremities Exam Extremities Exam: Full ROM, Normal Capillary Refill - Neurological Exam Neurological Exam: Alert, Awake, Oriented x3 - Psychiatric Exam Psychiatric exam: Normal Affect, Normal Mood - Skin Skin Exam: Dry, Normal Color, Warm Assessment and Plan - Assessment and Plan (Free Text) Assessment: A 73 year old female who came in to the ER due to upper abdominal pain. 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 Admitted for cholecystitis. Cleared for surgery from cardiac standpoint. She underwent laparoscopic cholecystectomy and lysis of adhesion on 12/04/18. Doing well. Cardiac status stable. Plan: Status post cholecystectomy POD#3 Ambulating, tolerating diet Cardiac status stable Heart rate controlled Blood pressure controlled On Amlodipine 5 mg daily, Coreg 3.125 mg BID Synthroid 112 mcg daily, Continue current medications May discharge patient from cardiac standpoint Possible discharge today Follow up in office 2-3 weeks Plan and treatment discussed with Dr. Ennis
[2018-12-07 10:30] LABS: ALB/GLOB RATIO 1.1 (1.1-1.8); ALBUMIN 3.4 g/dL (3.0-4.8); ALT/SGPT 71 U/L (7-56); AST/SGOT 36 U/L (14-36); BLOOD UREA NITROGEN 9 mg/dL (7-21); CALCIUM 8.6 mg/dL (8.4-10.5); GFR NON-AFRICAN AMERICAN > 60
[2018-12-07] MEDS: Levothyroxine 112 MCG TAB PO SCH (10:54)
--- NOTE | 2018-12-07 11:36 | CP.PCM.PN ---
Subjective - Date & Time of Evaluation Date of Evaluation: 12/07/18 Time of Evaluation: 07:00 - Subjective Subjective: Resident Progress Note for Surgery: Dr. Almanza Patient examined resting comfortably out of bed to chair. No acute events overnight. Patient tolerating diet and states she feels better today. Positive flatus. Denies fevers, chills, nausea, vomiting. Objective - Vital Signs/Intake and Output Vital Signs (last 24 hours): Temp Pulse Resp BP Pulse Ox 98.4 F 60 18 133/43 L 96 12/07/18 06:00 12/07/18 10:54 12/07/18 06:00 12/07/18 10:54 12/07/18 06:00 Intake and Output: 12/07/18 12/07/18 06:59 18:59 Intake Total 600 Balance 600 - Medications Medications: Current Medications Amlodipine Besylate (Norvasc) 5 mg PO DAILY [facility] Last Admin: 12/07/18 10:53 Dose: 5 mg Carvedilol (Coreg) 3.125 mg PO BID [facility] Last Admin: 12/07/18 10:54 Dose: 3.125 mg Docusate Sodium (Colace) 100 mg PO TID [facility] Last Admin: 12/07/18 10:54 Dose: 100 mg Hydralazine HCl (Apresoline) 10 mg IVP Q6 PRN PRN Reason: for sbp>160 Insulin Human Lispro (Humalog Med) 0 units SC [facility]; Protocol Last Admin: 12/07/18 08:42 Dose: 3 units Levothyroxine Sodium (Synthroid) 112 mcg PO DAILY [facility] Last Admin: 12/07/18 10:54 Dose: 112 mcg Metoclopramide HCl (Reglan) 10 mg IV ONCE PRN PRN Reason: Nausea/Vomiting Ondansetron HCl (Zofran Inj) 4 mg IVP Q6H PRN PRN Reason: Nausea/Vomiting Last Admin: 12/04/18 18:27 Dose: 4 mg Oxycodone/Acetaminophen (Percocet 5/325 Mg Tab) 1 tab PO Q6H PRN PRN Reason: Pain, moderate (4-7) Stop: 12/08/18 09:35 Last Admin: 12/06/18 10:09 Dose: 1 tab Pantoprazole Sodium (Protonix Inj) 40 mg IVP DAILY [facility] Last Admin: 12/07/18 10:54 Dose: 40 mg - Labs Labs: 12/07/18 09:00 12/07/18 09:00 PT 12.0 SECONDS (9.4-12.5) 12/04/18 07:40 INR 1.06 12/04/18 07:40 APTT 34.0 Seconds (26.9-38.3) 12/04/18 07:40 - Additional Findings Additional findings: - Constitutional Appears: Well, Non-toxic, No Acute Distress - Head Exam Head Exam: ATRAUMATIC, NORMOCEPHALIC - Eye Exam Eye Exam: EOMI. absent: Scleral icterus - ENT Exam ENT Exam: Mucous Membranes Moist - Respiratory Exam Respiratory Exam: NORMAL BREATHING PATTERN. absent: Accessory Muscle Use, Respiratory Distress - Cardiovascular Exam Cardiovascular Exam: RRR. absent: JVD - GI/Abdominal Exam GI & Abdominal Exam: Soft. absent: Distended, Firm, Guarding, Rebound Additional comments: Abdominal incisions clean dry and intact with dermabond. - Extremities Exam Extremities Exam: Normal Inspection. absent: Calf Tenderness - Neurological Exam Neurological Exam: Alert, Oriented x3 - Skin Skin Exam: Dry, Intact, Normal Color Assessment and Plan - Assessment and Plan (Free Text) Assessment: Patient is a 73 year old female s/p laparoscopic cholecystectomy, POD#3 Plan: - cleared for discharge from surgery - afebrile, no leukocytosis - drain removed - encourage out of bed and incentive spirometer use - pain management PRN - stool softeners, monitor bowel function - further recommendations as per Dr. Archie Yen PGY-1
--- NOTE | 2018-12-07 21:26 | DS ---
HISTORY OF PRESENT ILLNESS: The patient is 73 years old, seen and examined, doing well, minimal right upper quadrant pain only has pain at the surgical site. No nausea, vomiting, or diarrhea. Eating and tolerating. PHYSICAL EXAMINATION: VITAL SIGNS: She is afebrile, pulse 63, respirations 18, and blood pressure 133/53. LUNGS: Bilateral fair airflow. No rhonchi or crackle. HEART: S1 and S2 audible. ABDOMEN: Soft, obese and nontender. No rebound. No guarding. NEUROLOGIC: The patient is awake, alert, oriented, and able to communicate, ambulatory. LABORATORY DATA: WBC 5.8, hemoglobin 9.7, hematocrit 31 and platelets 211. Chemistry; sodium 135, potassium 4.6, chloride 100, CO2 of 30, BUN 9, creatinine 0.6 and blood sugar of 259. Blood culture and urine cultures are negative. ASSESSMENT: 1. Status post acute cholecystitis. 2. Cholelithiasis, status post cholecystectomy. 3. Hypertension. 4. Coronary artery disease, status post open heart surgery. 5. Status post gastric bypass. PLAN: The patient is clinically stable. She is off of antibiotics, cleared by Surgery, will be discharged today and she will follow up with her primary care doctor and she will follow up with Dr. Myers as outpatient. Frances Mccartney MD
--- NOTE | 2018-12-13 13:02 | OP ---
PROCEDURE DATE: 12/04/2018 PREOPERATIVE DIAGNOSES: Chronic recurring cholecystitis (acalculous) and pancreatitis. POSTOPERATIVE DIAGNOSES: Chronic recurring cholecystitis (acalculous) and pancreatitis with chronic adhesions to the right upper quadrant. SURGEON: Pietro Almanza MD SENIOR APPLICATIONS ARCHITECT: Yo Palomo DO, PGY-4 [employer] MANAGER: Sanju Acharya DO, PGY-2 ANESTHESIA: General endotracheal, bupivacaine 0.5-18 mL. ANESTHESIOLOGIST: Gianni Menendez MD OPERATIVE INDICATION: The patient is a 73-year-old [place] female who has had a three-year history of recurring right-sided abdominal pain, has been told she has recurring pancreatitis and ultrasound examinations over several admissions confirm sludge in the gallbladder without evidence of obvious stone. The patient has been admitted to the hospital with recurrence of the same symptomatology, undergoes a CT with pancreatic protocol of her common duct, demonstrating absent stones within the common duct and was unable to undergo an MRI due to the presence of a pacemaker which is contraindicated in MRI examinations. HIDA scan was ordered by the private physician, that demonstrated obstruction of the cystic duct. The patient has been advised that this can lead to infection and further admissions and hospitalization pain, and the patient is very anxious to have her gallbladder removed. Laparoscopic cholecystectomy was described in length to the patient and to her family. She signed the informed consent, understanding the risks, the benefits, and the alternatives with their anticipated outcomes. OPERATIVE NOTE: The patient was brought to the operating room from the holding area, where she has been preoperatively checked. She undergoes time-out procedure and is now placed on the table in a supine manner. Following the induction of general anesthesia and the insertion of an endotracheal tube, sequential compression devices were placed on her lower extremities for venous thromboembolism prophylaxis. The abdomen is prepped with Hibiclens chlorhexidine preparation and the patient is aseptically draped. The umbilicus was elevated on towel clips. The skin above it is infiltrated with the long-acting bupivacaine and the incision made and the Veress needle inserted into the peritoneal cavity and the abdomen insufflated with carbon dioxide gas to 14 mmHg pressure. The patient has had a previous laparoscopic gastric stapling procedure in the past and several adhesions were encountered during this procedure from those previous surgeries. The needle was removed and replaced with a 12 mm laparoscopic-guided port (blunt) and the peritoneum was entered and explored demonstrating the adhesions above and inflammatory reaction to the gallbladder of a chronic nature. A 12-mm port was placed in the right subxiphoid location under direct vision infiltrating the skin also with the local anesthetic and two 5-mm ports placed in the left upper quadrant at the level of the umbilicus. The table was rotated to a reverse Trendelenburg position with left lateral tilt, exposing the right upper quadrant which requires extensive lysis of adhesions and care to clear the gallbladder. A needle was placed into the gallbladder aspirating the content and culturing the same demonstrating white bile which is significant for probable cystic duct obstruction of a more chronic nature. The gallbladder was grasped with two Prestige clamps at the fundus and the apex occluding the needle hole and the sean hepatis is meticulously dissected with extremely inflammatory and thickened inflammation and adhesion. The cystic duct which eventually is exposed is approximately one-half the size of the chronic inflammatory external cicatrix encasing it. After exposing the cystic artery and the cystic duct with very meticulous and careful dissection, intraoperative cholangiography was performed demonstrating free flow of contrast into the duodenum without evidence of obstruction or stone. The pancreatic duct did not visualize during this examination. The catheter was removed and the cystic duct is triply hemoclipped and then transected. The cystic artery is dissected free and it too is doubly hemoclipped and transected. The gallbladder is now removed from the liver bed in a prograde fashion utilizing electrocautery to prevent liver bed bleeding or leakage from biliary ducts or lymphatics. Extensive hemostatic control was employed and the gallbladder is now placed in an EndoCatch, brought out through the subxiphoid port site and submitted to pathology in formalin after opening the gallbladder and demonstrating the chronic inflammatory changes and the absence of stones. Of note is the fact that the cystic duct is easily visualized on the outside of the gallbladder, but is completely obliterated on the inside indicating a chronic inflammatory obstruction. The patient is now placed level supine, the right upper quadrant is lavaged with multiliters of normal saline solution until return is completely clear and it is elected at this point to place a Eric 15-Armenian drain into the peritoneal cavity in the hepatorenal space of [place]. It is secured to the skin with 2-0 Surgidac polyester suture and the ports are now removed and the two midline ports were closed with interrupted 2-0 Polysorb sutures and the skin with subcuticular closure of Biosyn and Dermabond adhesive. The patient is now awakened, extubated, transported to the recovery room in a satisfactory condition. Sponge, instrument and suture count were verified as correct at the end of the procedure. Estimated blood loss during this procedure was approximately 40 mL of blood. The surgical assistants were extremely helpful from beginning to end and were very essential in the dissection of the gallbladder and removal of same. This dictation will be electronically signed without being read. Pietro Almanza MD
== END 2018-12-07 14:20 | disposition home or self-care (01) | DRG 417 ==
LOC: ED 23:29 → ERH 12-01 01:44 → 5RSO 12-01 03:33
PROVIDERS: ADMIT Internal Medicine; ATTEND Internal Medicine
PROC: 0DNW4ZZ Release Peritoneum, Percutaneous Endoscopic Approach (ICD-10-PCS; 2018-12-04)
PROC: 0FT44ZZ Resection of Gallbladder, Percutaneous Endoscopic Approach (ICD-10-PCS; principal; 2018-12-04 13:00)
DX: K81.0 Acute cholecystitis (principal); K85.90 Acute pancreatitis without necrosis or infection, unspecified; Z68.41 Body mass index [BMI] 40.0-44.9, adult; K81.1 Chronic cholecystitis; E11.9 Type 2 diabetes mellitus without complications; I10 Essential (primary) hypertension; I25.10 Atherosclerotic heart disease of native coronary artery without angina pectoris; E66.01 Morbid (severe) obesity due to excess calories; K66.0 Peritoneal adhesions (postprocedural) (postinfection); D50.9 Iron deficiency anemia, unspecified; E03.9 Hypothyroidism, unspecified; E78.5 Hyperlipidemia, unspecified; K21.9 Gastro-esophageal reflux disease without esophagitis; K27.9 Peptic ulcer, site unspecified, unspecified as acute or chronic, without hemorrhage or perforation; K64.8 Other hemorrhoids; Z95.0 Presence of cardiac pacemaker; Z95.1 Presence of aortocoronary bypass graft; Z98.61 Coronary angioplasty status; Z79.4 Long term (current) use of insulin; Z79.82 Long term (current) use of aspirin; Z79.890 Hormone replacement therapy; Z98.84 Bariatric surgery status; Z86.010 Personal history of colon polyps; Z80.0 Family history of malignant neoplasm of digestive organs

== ENCOUNTER 2019-01-09 14:13 | Outpatient (CLI) | payer MEDICARE, OTHER | END 2019-01-09 14:14 | disposition home or self-care (01) | LOC: CARDIO 14:13 ==